=== PATIENT | male | born 1980 | race African-American/Black ===

== ENCOUNTER 2016-12-01 15:54 | Inpatient (IN) ==
[2016-12-01] MEDS ORDERED: 0.9 % Sodium Chloride 1,000 ML IVC ONE ×2 (16:08→17:33)
--- NOTE | 2016-12-01 16:21 | Emergency Department Note ---
Disposition Clinical Impression: Dehydration, Hyponatremia, Hypochloremia, Acute kidney injury Altered mental status Qualifiers: Altered mental status type: unspecified Qualified Code(s): R41.82 - Altered mental status, unspecified Disposition: Admitted As Inpatient Condition: Fair General Adult HPI - General Chief complaint: ED Altered Mental Status Stated complaint: F/D/AMS Time Seen by Provider: 12/01/16 16:03 Source: patient, family Limitations: no limitations - History of Present Illness Pain Scale: 7 - Related Data Home Medications Medication Instructions Recorded Confirmed Benztropine Mesylate [Benztropine 1 mg BID 12/01/16 12/02/16 Mesylate] ClonazePAM [Klonopin] 1 mg PO TID 12/01/16 12/02/16 Divalproex (12 HR) [Depakote (12 500 mg PO BID 12/01/16 12/02/16 HR)] Divalproex (24 HR) [Depakote ER 1,000 mg PO HS 12/01/16 12/02/16 (24 HR)] Haloperidol 10 mg PO QAM 12/01/16 12/02/16 Haloperidol 20 mg PO HS 12/01/16 12/02/16 [place] Carbon[place] 600 mg PO BID 12/01/16 12/02/16 Mesalamine [Pentasa] 1,000 mg PO QID 12/01/16 12/02/16 OLANZapine [Zyprexa] 20 mg PO HS 12/01/16 12/02/16 Allergies Allergy/AdvReac Type Severity Reaction Status Date / Time milk Allergy Diarrhea Verified 12/01/16 16:01 Past Medical History - Past Medical History Medical history: Reports: GERD Psychiatric history: Reports: schizophrenia - Social History Smoking Status: Current every day smoker Smokeless Tobacco Status: No Alcohol use: Reports: none Drug use: Reports: none Physical Exam - General Limitations: no limitations General appearance: alert Course Vital Signs Temperature 99 F 12/01/16 15:56 Pulse Rate 102 12/01/16 15:56 Respiratory Rate 20 12/01/16 15:56 Blood Pressure 105/72 12/01/16 15:56 O2 Sat by Pulse Oximetry 95 12/01/16 15:56 Temperature 99.1 F 12/03/16 06:58 Pulse Rate 85 12/03/16 06:58 Respiratory Rate 18 03/07/17 06:58 Blood Pressure 99/58 12/03/16 06:58 O2 Sat by Pulse Oximetry 95 12/03/16 06:58 Oxygen Delivery Oxygen Delivery Room Air Medical Decision Making - Lab Data Result diagrams: 12/03/16 08:25 12/03/16 08:25 Lab Results 12/01/16 12/01/16 12/01/16 Range/Units 16:23 16:23 16:23 WBC 5.4 (4.3-11.1) K/mcL RBC 5.27 (4.19-5.50) M/mcL Hgb 14.2 D (12.9-16.9) g/dL Hct 42.8 (37.5-50.1) % MCV 81.2 L (83.0-100.0) fL MCH 26.9 L (28.0-33.3) pg MCHC 33.2 (31.6-35.5) g/dL RDW 14.6 H (11.5-14.5) % Plt Count 108 L (140-400) K/mcL MPV 12.5 H (9.4-12.4) fL Immature Gran % INSTRUMENT TECHNICIAN Seg Neutrophils % 16.0 % Band Neutrophils % 50.0 H (0-4) % Lymphocytes % 11.0 % Monocytes % 23.0 % Eosinophils % INSTRUMENT TECHNICIAN Basophils % INSTRUMENT TECHNICIAN Neutrophils # 3.6 (1.6-8.9) K/mcL Lymphocytes # 0.6 (0.6-4.6) K/mcL Monocytes # 1.2 (0.0-1.3) K/mcL Eosinophils # INSTRUMENT TECHNICIAN Basophils # INSTRUMENT TECHNICIAN Toxic Granulation Present A (Not Present) Toxic Vacuolation Present A (Not Present) Platelet Estimate Slight Decrease L (Normal) Large Platelets Present A (Not Present) Poikilocytosis 1+ A (Not Present) Anisocytosis 1+ A (Not Present) Smear Path Review See Below Sodium 124 L (136-145) mEq/L Potassium 3.5 (3.5-4.5) mEq/L Chloride 87 L (98-109) mEq/L Carbon Dioxide 22 (19-29) mEq/L BUN 49 H (8-26) mg/dL Creatinine 2.63 H (0.72-1.25) mg/dL Est GFR ( Amer) 33 L (> 60) Est GFR (Non-Af Amer) 28 L (> 60) BUN/Creatinine Ratio 19 (6-26) Glucose 123 H (70-99) mg/dL Calculated Osmolality 272 L (280-300) Lactic Acid 1.3 (0.5-2.2) mmol/L Calcium 9.2 (8.6-10.8) mg/dL Magnesium 2.5 (1.6-2.6) mg/dL Total Bilirubin 0.5 (0.2-1.2) mg/dL AST 25 (5-34) Units/L ALT 23 (0-55) Units/L Alkaline Phosphatase 77 (38-126) Units/L Serum Total Protein 6.9 (6.0-8.3) g/dL Albumin 3.2 L (3.5-5.0) g/dL Globulin 3.7 H (2.4-3.5) g/dL Albumin/Globulin Ratio 0.9 L (1.1-2.2) Urine Color (Yellow) Urine Clarity (Clear) Urine pH (5.0-8.0) pH Units Ur Specific [place] (1.010-1.025) Urine Protein (Neg-Trace) mg/dL Urine Glucose (UA) (Normal) mg/dL Urine Ketones (Negative) mg/dL Urine Blood (Negative) Urine Nitrite (Negative) Urine Bilirubin (Negative) Urine Urobilinogen (Normal) mg/dL Ur Leukocyte Esterase (Negative) Urine Microscopic RBC (0-3) per hpf Urine Microscopic WBC (0-3) per hpf Ur Squamous Epith Cells (None-Few) per lpf Amorphous Sediment (Few) Urine Bacteria (None-Few) per hpf Hyaline Casts (None-Few) per lpf Valproic Acid (50-100) mcg/mL [place] (0.6-1.2) mEq/L 12/01/16 12/01/16 12/01/16 Range/Units 16:23 16:23 17:32 WBC (4.3-11.1) K/mcL RBC (4.19-5.50) M/mcL Hgb (12.9-16.9) g/dL Hct (37.5-50.1) % MCV (83.0-100.0) fL MCH (28.0-33.3) pg MCHC (31.6-35.5) g/dL RDW (11.5-14.5) % Plt Count (140-400) K/mcL MPV (9.4-12.4) fL Immature Gran % Seg Neutrophils % % Band Neutrophils % (0-4) % Lymphocytes % % Monocytes % % Eosinophils % Basophils % Neutrophils # (1.6-8.9) K/mcL Lymphocytes # (0.6-4.6) K/mcL Monocytes # (0.0-1.3) K/mcL Eosinophils # Basophils # Toxic Granulation (Not Present) Toxic Vacuolation (Not Present) Platelet Estimate (Normal) Large Platelets (Not Present) Poikilocytosis (Not Present) Anisocytosis (Not Present) Smear Path Review Sodium (136-145) mEq/L Potassium (3.5-4.5) mEq/L Chloride (98-109) mEq/L Carbon Dioxide (19-29) mEq/L BUN (8-26) mg/dL Creatinine (0.72-1.25) mg/dL Est GFR ( Amer) (> 60) Est GFR (Non-Af Amer) (> 60) BUN/Creatinine Ratio (6-26) Glucose (70-99) mg/dL Calculated Osmolality (280-300) Lactic Acid (0.5-2.2) mmol/L Calcium (8.6-10.8) mg/dL Magnesium (1.6-2.6) mg/dL Total Bilirubin (0.2-1.2) mg/dL AST (5-34) Units/L ALT (0-55) Units/L Alkaline Phosphatase (38-126) Units/L Serum Total Protein (6.0-8.3) g/dL Albumin (3.5-5.0) g/dL Globulin (2.4-3.5) g/dL Albumin/Globulin Ratio (1.1-2.2) Urine Color Dark Yellow (Yellow) Urine Clarity Cloudy A (Clear) Urine pH 5.0 (5.0-8.0) pH Units Ur Specific [place] 1.022 (1.010-1.025) Urine Protein 30 H (Neg-Trace) mg/dL Urine Glucose (UA) Normal (Normal) mg/dL Urine Ketones Trace H (Negative) mg/dL Urine Blood Trace H (Negative) Urine Nitrite Negative (Negative) Urine Bilirubin Negative (Negative) Urine Urobilinogen Normal (Normal) mg/dL Ur Leukocyte Esterase Negative (Negative) Urine Microscopic RBC 5-15 H (0-3) per hpf Urine Microscopic WBC 0-3 (0-3) per hpf Ur Squamous Epith Cells Many H (None-Few) per lpf Amorphous Sediment Moderate H (Few) Urine Bacteria Few (None-Few) per hpf Hyaline Casts None Seen (None-Few) per lpf Valproic Acid 115.78 H (50-100) mcg/mL [place] 1.7 H* (0.6-1.2) mEq/L Attestation Statement - Attestation Attestation: I examined this patient and my medical decision-making was reviewed with the TENNIS CAMP INSTRUCTOR/PA/Advanced Practice Nurse/Resident Physician. I agree with the documented findings, disposition and treatment plan as described except to the extent set forth below. [id number] time provided Patient presents to the emergency department and the care of his facility employee and his mother. They report generalized weakness, diarrhea, confusion. The patient appears ashen, cachectic, and older than stated age. He is a limited historian. Home medication list reviewed by me. Plan of care and management discussed by me with the resident physician
--- NOTE | 2016-12-01 16:28 | Emergency Department Note ---
Disposition Clinical Impression: Dehydration, Hyponatremia, Hypochloremia, Acute kidney injury Altered mental status Qualifiers: Altered mental status type: unspecified Qualified Code(s): R41.82 - Altered mental status, unspecified Disposition: Admitted As Inpatient Condition: Fair General Adult HPI - General Chief complaint: ED Altered Mental Status Stated complaint: F/D/AMS Time Seen by Provider: 12/01/16 16:03 Source: patient, family Limitations: no limitations Nursing Notes Reviewed: Yes Vital Signs Reviewed: Yes - History of Present Illness HPI Narrative: Mr. Dash, 36-year-old male, presents from an inpatient mental health facility via EMS with mother and caregiver bedside. Chief complaint is fever, decreased appetite, loose bowels, altered mentation, ashen appearance. This began 5 days ago with fever of 104F. He was seen at this emergency department 5 days ago and diagnosed with viral URI symptoms. His diarrhea began shortly thereafter with associated decreased PO intake. His confusion began this morning as did his ashen appearance. Caregiver states that patient had been given Tamiflu by nurses at this facility with the rationale of, "fever." Patient was Flu (-) on his previous visit. PMH: Schizophrenia Medications: Benztropine, clonazepam, divalproex, haloperidol Pain Scale: 7 - Related Data Allergies Allergy/AdvReac Type Severity Reaction Status Date / Time milk Allergy Diarrhea Verified 12/01/16 16:01 Past Medical History - Past Medical History Medical history: Reports: GERD Psychiatric history: Reports: schizophrenia - Social History Smoking Status: Current every day smoker Smokeless Tobacco Status: No Alcohol use: Reports: none Drug use: Reports: none Physical Exam General: Patient is alert, oriented to self, location, not to situation or birthdate, and in no acute distress. He appears ashen and tired. HEENT: No facial asymmetry. Head is normocephalic and atraumatic. Trachea midline. Oral mucosa dry. Cardiovascular: Heart regular rate and rhythm without clicks, rubs, gallops, or murmurs. No JVD. PMI nondisplaced. Respiratory: Symmetric chest rise with good respiratory effort. Bilateral breath sounds are clear without wheezing, crackles, or rhonchi. Abdomen: Bowel sounds present normoactive x-4 quadrants. Abdomen is soft, nondistended, and nontender. No organomegaly noted. Psych: Patient's affect is appropriate for situation. - General Limitations: no limitations General appearance: alert Course Vital Signs Temperature 99 F 12/01/16 15:56 Pulse Rate 102 12/01/16 15:56 Respiratory Rate 20 12/01/16 15:56 Blood Pressure 105/72 12/01/16 15:56 O2 Sat by Pulse Oximetry 95 12/01/16 15:56 Temperature 99 F 12/01/16 15:56 Pulse Rate 81 12/01/16 17:15 Respiratory Rate 20 12/01/16 17:15 Blood Pressure 99/66 12/01/16 17:15 O2 Sat by Pulse Oximetry 98 12/01/16 17:15 Oxygen Delivery Oxygen Delivery Room Air Medical Decision Making - Lab Data Result diagrams: 12/01/16 16:23 12/01/16 16:23 Lab Results 12/01/16 12/01/16 12/01/16 Range/Units 16:23 16:23 16:23 WBC 5.4 (4.3-11.1) K/mcL RBC 5.27 (4.19-5.50) M/mcL Hgb 14.2 D (12.9-16.9) g/dL Hct 42.8 (37.5-50.1) % MCV 81.2 L (83.0-100.0) fL MCH 26.9 L (28.0-33.3) pg MCHC 33.2 (31.6-35.5) g/dL RDW 14.6 H (11.5-14.5) % Plt Count 108 L (140-400) K/mcL MPV 12.5 H (9.4-12.4) fL Immature Gran % ELECTRICAL MAINTENANCE TECHNICIAN Seg Neutrophils % 16.0 % Band Neutrophils % 50.0 H (0-4) % Lymphocytes % 11.0 % Monocytes % 23.0 % Eosinophils % ELECTRICAL MAINTENANCE TECHNICIAN Basophils % ELECTRICAL MAINTENANCE TECHNICIAN Neutrophils # 3.6 (1.6-8.9) K/mcL Lymphocytes # 0.6 (0.6-4.6) K/mcL Monocytes # 1.2 (0.0-1.3) K/mcL Eosinophils # ELECTRICAL MAINTENANCE TECHNICIAN Basophils # ELECTRICAL MAINTENANCE TECHNICIAN Toxic Granulation Present A (Not Present) Toxic Vacuolation Present A (Not Present) Platelet Estimate Slight Decrease L (Normal) Large Platelets Present A (Not Present) Poikilocytosis 1+ A (Not Present) Anisocytosis 1+ A (Not Present) Sodium 124 L (136-145) mEq/L Potassium 3.5 (3.5-4.5) mEq/L Chloride 87 L (98-109) mEq/L Carbon Dioxide 22 (19-29) mEq/L BUN 49 H (8-26) mg/dL Creatinine 2.63 H (0.72-1.25) mg/dL Est GFR ( Amer) 33 L (> 60) Est GFR (Non-Af Amer) 28 L (> 60) BUN/Creatinine Ratio 19 (6-26) Glucose 123 H (70-99) mg/dL Calculated Osmolality 272 L (280-300) Lactic Acid 1.3 (0.5-2.2) mmol/L Calcium 9.2 (8.6-10.8) mg/dL Magnesium 2.5 (1.6-2.6) mg/dL Total Bilirubin 0.5 (0.2-1.2) mg/dL AST 25 (5-34) Units/L ALT 23 (0-55) Units/L Alkaline Phosphatase 77 (38-126) Units/L Serum Total Protein 6.9 (6.0-8.3) g/dL Albumin 3.2 L (3.5-5.0) g/dL Globulin 3.7 H (2.4-3.5) g/dL Albumin/Globulin Ratio 0.9 L (1.1-2.2) Urine Color (Yellow) Urine Clarity (Clear) Urine pH (5.0-8.0) pH Units Ur Specific [place] (1.010-1.025) Urine Protein (Neg-Trace) mg/dL Urine Glucose (UA) (Normal) mg/dL Urine Ketones (Negative) mg/dL Urine Blood (Negative) Urine Nitrite (Negative) Urine Bilirubin (Negative) Urine Urobilinogen (Normal) mg/dL Ur Leukocyte Esterase (Negative) Urine Microscopic RBC (0-3) per hpf Urine Microscopic WBC (0-3) per hpf Ur Squamous Epith Cells (None-Few) per lpf Amorphous Sediment (Few) Urine Bacteria (None-Few) per hpf Hyaline Casts (None-Few) per lpf Valproic Acid (50-100) mcg/mL [place] (0.6-1.2) mEq/L 12/01/16 12/01/16 12/01/16 Range/Units 16:23 16:23 17:32 WBC (4.3-11.1) K/mcL RBC (4.19-5.50) M/mcL Hgb (12.9-16.9) g/dL Hct (37.5-50.1) % MCV (83.0-100.0) fL MCH (28.0-33.3) pg MCHC (31.6-35.5) g/dL RDW (11.5-14.5) % Plt Count (140-400) K/mcL MPV (9.4-12.4) fL Immature Gran % Seg Neutrophils % % Band Neutrophils % (0-4) % Lymphocytes % % Monocytes % % Eosinophils % Basophils % Neutrophils # (1.6-8.9) K/mcL Lymphocytes # (0.6-4.6) K/mcL Monocytes # (0.0-1.3) K/mcL Eosinophils # Basophils # Toxic Granulation (Not Present) Toxic Vacuolation (Not Present) Platelet Estimate (Normal) Large Platelets (Not Present) Poikilocytosis (Not Present) Anisocytosis (Not Present) Sodium (136-145) mEq/L Potassium (3.5-4.5) mEq/L Chloride (98-109) mEq/L Carbon Dioxide (19-29) mEq/L BUN (8-26) mg/dL Creatinine (0.72-1.25) mg/dL Est GFR ( Amer) (> 60) Est GFR (Non-Af Amer) (> 60) BUN/Creatinine Ratio (6-26) Glucose (70-99) mg/dL Calculated Osmolality (280-300) Lactic Acid (0.5-2.2) mmol/L Calcium (8.6-10.8) mg/dL Magnesium (1.6-2.6) mg/dL Total Bilirubin (0.2-1.2) mg/dL AST (5-34) Units/L ALT (0-55) Units/L Alkaline Phosphatase (38-126) Units/L Serum Total Protein (6.0-8.3) g/dL Albumin (3.5-5.0) g/dL Globulin (2.4-3.5) g/dL Albumin/Globulin Ratio (1.1-2.2) Urine Color Dark Yellow (Yellow) Urine Clarity Cloudy A (Clear) Urine pH 5.0 (5.0-8.0) pH Units Ur Specific [place] 1.022 (1.010-1.025) Urine Protein 30 H (Neg-Trace) mg/dL Urine Glucose (UA) Normal (Normal) mg/dL Urine Ketones Trace H (Negative) mg/dL Urine Blood Trace H (Negative) Urine Nitrite Negative (Negative) Urine Bilirubin Negative (Negative) Urine Urobilinogen Normal (Normal) mg/dL Ur Leukocyte Esterase Negative (Negative) Urine Microscopic RBC 5-15 H (0-3) per hpf Urine Microscopic WBC 0-3 (0-3) per hpf Ur Squamous Epith Cells Many H (None-Few) per lpf Amorphous Sediment Moderate H (Few) Urine Bacteria Few (None-Few) per hpf Hyaline Casts None Seen (None-Few) per lpf Valproic Acid 115.78 H (50-100) mcg/mL [place] 1.7 H* (0.6-1.2) mEq/L
[2016-12-01 16:33] LABS: Hematocrit 42.8 % (37.5-50.1); Hemoglobin 14.2 g/dL (12.9-16.9); Mean Corpuscular HGB Conc 33.2 g/dL (31.6-35.5); Mean Corpuscular Hemoglobin 26.9 pg (28.0-33.3); Mean Platelet Volume 12.5 fL (9.4-12.4); Platelet Count 108 K/mcL (140-400); Red Blood Count 5.27 M/mcL (4.19-5.50); Red Cell Distribution Width 14.6 % (11.5-14.5)
[2016-12-01 16:34] LABS: Mean Corpuscular Volume 81.2 fL (83.0-100.0)
[2016-12-01 16:48] LABS: Albumin 3.2 g/dL (3.5-5.0); Albumin/Globulin Ratio 0.9 (1.1-2.2); Bilirubin,Total 0.5 mg/dL (0.2-1.2); Calcium 9.2 mg/dL (8.6-10.8); Globulin 3.7 g/dL (2.4-3.5); Magnesium 2.5 mg/dL (1.6-2.6); Potassium 3.5 mEq/L (3.5-4.5); Total Protein 6.9 g/dL (6.0-8.3)
[2016-12-01 17:17] LABS: Neutrophils # 3.6 K/mcL (1.6-8.9)
[2016-12-01 17:18] LABS: Lymphocytes # 0.6 K/mcL (0.6-4.6)
[2016-12-01 17:19] LABS: Monocytes # 1.2 K/mcL (0.0-1.3)
[2016-12-01 17:20] LABS: Large Platelets Present (Not Present); Platelet Estimate Slight Decrease (Normal); Toxic Granulation Present (Not Present); Toxic Vacuolation Present (Not Present)
[2016-12-01 17:23] LABS: Anisocytosis 1+ (Not Present); Poikilocytosis 1+ (Not Present)
[2016-12-01 17:40] LABS: Bilirubin,Urine Negative (Negative); Blood,Urine Trace (Negative); Clarity,Urine Cloudy (Clear); Color,Urine Dark Yellow (Yellow); Glucose,Urine (UA) Normal (Normal); Ketones,Urine Trace mg/dL (Negative); Leukocyte Esterase,Urine Negative (Negative); Nitrite,Urine Negative (Negative); Protein,Urine 30 mg/dL (Neg-Trace); Specific Gravity,Urine 1.022 (1.010-1.025); Urobilinogen,Urine Normal (Normal)
[2016-12-01 17:42] LABS: Squamous Epithelial Cell,Urine Many per lpf (None-Few); WBC,Urine 0-3 per hpf (0-3)
[2016-12-01 17:52] LABS: Amorphous Sediment,Urine Moderate (Few); Hyaline Casts,Urine None Seen per lpf (None-Few)
[2016-12-01 17:53] LABS: Bacteria,Urine Few per hpf (None-Few)
[2016-12-01] MEDS ORDERED: Ondansetron 4 MG/2 ML VIAL IVP PRN (18:13)
[2016-12-01] MEDS ORDERED: Naloxone 0.4 MG/ML INJ IVP PRN (18:13)
--- NOTE | 2016-12-01 18:23 | Internal Med History&Physical ---
Date of Encounter: 12/01/16 Time of Encounter: 17:45 Internal Medicine - H&P: HPI Chief complaint: sore throat, nausea, vomiting, weakness, inability to walk x 5- 7 days Admitted From: Emergency Dept Plans for Post Hospital Care: Home History of present illness: Mr. Dash is a 36 year old male resident of a [facility], with medical history significant for short bowel syndrome, PUDx, milk intolerance with chronic intermittent diarrhea, schizoaffective disorder on Depakote, [place], Zyprexa, was brought in by EMS (mother and caregiver bedside) with 5 days of intermittent fever (T max 104), protracted nausea, vomiting and diarrhea. He reports a preceding sore throat without cough. Mother and caregiver also report somnolence and confusion since this morning. The re is also complaint of decreased oral intake. He is currently being treated for a viral URI with Ostelmivir (even though he was rapid influenza test negative at his last ED visit 5 days ago). The patient denies abdominal pain. No rash, no sick contacts , no recent travel. His mother reports that the patient has been unable to walk , and has had a wobbling gait lately. He has been in and out of hospital usually for gastrointestinal complaints related to PUDx and short bowel syndrome. He denies other complaints on ROS. Significantly, no headaches, neck stiffness, rash and glandular enlargement. No rhinorrhea, no hemptysis, hematemesis, melena, hematochezia. Caregiver thinks he has lost weight. He is FULL CODE per discussion. He nominates his mother, Yumiko Lindsey ) as his NOK/POA. ROS: A 10 point ROS was performed. see HPI. Positives and relevant negatives are detailed, system-symptom not mention assumed negative unless otherwise stated. Family history: no significant family history. Vital Signs Temperature 99 F 12/01/16 15:56 Pulse Rate 102 12/01/16 15:56 Respiratory Rate 20 12/01/16 15:56 Blood Pressure 105/72 12/01/16 15:56 O2 Sat by Pulse Oximetry 95 12/01/16 15:56 Temperature 99 F 12/01/16 15:56 Pulse Rate 81 12/01/16 17:15 Respiratory Rate 20 12/01/16 17:15 Blood Pressure 99/66 12/01/16 17:15 O2 Sat by Pulse Oximetry 98 12/01/16 17:15 Not in distress, he is ill or toxic looking. lethargic. suncken eyes, Not pale, anicteric, afebrile, acyanotic. Moist mucosa, no JVD HEENT: No JVD, no cervical lymphadenopathy, Chest : CTAB Heart: RRR, HS1/2, no m/r/g. Abdomen: soft, non-tender, no guarding, no rebound, no masses, BS+ : No flank tenderness, no CVA tenderness, no suprapubic tenderness. NATURAL RESOURCE MANAGER: AAO x 3, no focal neurological deficits. He intermittent drifts off to sleep. Skin: no active skin lesion, loss of skin tugor. Extremities: No pedal edema, normal pedal pulses, no calf tenderness. Lab Results 12/01/16 12/01/16 12/01/16 Range/Units 16:23 16:23 16:23 WBC 5.4 (4.3-11.1) K/mcL RBC 5.27 (4.19-5.50) M/mcL Hgb 14.2 D (12.9-16.9) g/dL Hct 42.8 (37.5-50.1) % MCV 81.2 L (83.0-100.0) fL MCH 26.9 L (28.0-33.3) pg MCHC 33.2 (31.6-35.5) g/dL RDW 14.6 H (11.5-14.5) % Plt Count 108 L (140-400) K/mcL MPV 12.5 H (9.4-12.4) fL Immature Gran % COFFEE TASTER Seg Neutrophils % 16.0 % Band Neutrophils % 50.0 H (0-4) % Lymphocytes % 11.0 % Monocytes % 23.0 % Eosinophils % COFFEE TASTER Basophils % COFFEE TASTER Neutrophils # 3.6 (1.6-8.9) K/mcL Lymphocytes # 0.6 (0.6-4.6) K/mcL Monocytes # 1.2 (0.0-1.3) K/mcL Eosinophils # COFFEE TASTER Basophils # COFFEE TASTER Toxic Granulation Present A (Not Present) Toxic Vacuolation Present A (Not Present) Platelet Estimate Slight Decrease L (Normal) Large Platelets Present A (Not Present) Poikilocytosis 1+ A (Not Present) Anisocytosis 1+ A (Not Present) Sodium 124 L (136-145) mEq/L Potassium 3.5 (3.5-4.5) mEq/L Chloride 87 L (98-109) mEq/L Carbon Dioxide 22 (19-29) mEq/L BUN 49 H (8-26) mg/dL Creatinine 2.63 H (0.72-1.25) mg/dL Est GFR ( Amer) 33 L (> 60) Est GFR (Non-Af Amer) 28 L (> 60) BUN/Creatinine Ratio 19 (6-26) Glucose 123 H (70-99) mg/dL Calculated Osmolality 272 L (280-300) Lactic Acid 1.3 (0.5-2.2) mmol/L Calcium 9.2 (8.6-10.8) mg/dL Magnesium 2.5 (1.6-2.6) mg/dL Total Bilirubin 0.5 (0.2-1.2) mg/dL AST 25 (5-34) Units/L ALT 23 (0-55) Units/L Alkaline Phosphatase 77 (38-126) Units/L Serum Total Protein 6.9 (6.0-8.3) g/dL Albumin 3.2 L (3.5-5.0) g/dL Globulin 3.7 H (2.4-3.5) g/dL Albumin/Globulin Ratio 0.9 L (1.1-2.2) Urine Color (Yellow) Urine Clarity (Clear) Urine pH (5.0-8.0) pH Units Ur Specific [place] (1.010-1.025) Urine Protein (Neg-Trace) mg/dL Urine Glucose (UA) (Normal) mg/dL Urine Ketones (Negative) mg/dL Urine Blood (Negative) Urine Nitrite (Negative) Urine Bilirubin (Negative) Urine Urobilinogen (Normal) mg/dL Ur Leukocyte Esterase (Negative) Urine Microscopic RBC (0-3) per hpf Urine Microscopic WBC (0-3) per hpf Ur Squamous Epith Cells (None-Few) per lpf Amorphous Sediment (Few) Urine Bacteria (None-Few) per hpf Hyaline Casts (None-Few) per lpf Valproic Acid (50-100) mcg/mL [place] (0.6-1.2) mEq/L 12/01/16 12/01/16 12/01/16 Range/Units 16:23 16:23 17:32 WBC (4.3-11.1) K/mcL RBC (4.19-5.50) M/mcL Hgb (12.9-16.9) g/dL Hct (37.5-50.1) % MCV (83.0-100.0) fL MCH (28.0-33.3) pg MCHC (31.6-35.5) g/dL RDW (11.5-14.5) % Plt Count (140-400) K/mcL MPV (9.4-12.4) fL Immature Gran % Seg Neutrophils % % Band Neutrophils % (0-4) % Lymphocytes % % Monocytes % % Eosinophils % Basophils % Neutrophils # (1.6-8.9) K/mcL Lymphocytes # (0.6-4.6) K/mcL Monocytes # (0.0-1.3) K/mcL Eosinophils # Basophils # Toxic Granulation (Not Present) Toxic Vacuolation (Not Present) Platelet Estimate (Normal) Large Platelets (Not Present) Poikilocytosis (Not Present) Anisocytosis (Not Present) Sodium (136-145) mEq/L Potassium (3.5-4.5) mEq/L Chloride (98-109) mEq/L Carbon Dioxide (19-29) mEq/L BUN (8-26) mg/dL Creatinine (0.72-1.25) mg/dL Est GFR ( Amer) (> 60) Est GFR (Non-Af Amer) (> 60) BUN/Creatinine Ratio (6-26) Glucose (70-99) mg/dL Calculated Osmolality (280-300) Lactic Acid (0.5-2.2) mmol/L Calcium (8.6-10.8) mg/dL Magnesium (1.6-2.6) mg/dL Total Bilirubin (0.2-1.2) mg/dL AST (5-34) Units/L ALT (0-55) Units/L Alkaline Phosphatase (38-126) Units/L Serum Total Protein (6.0-8.3) g/dL Albumin (3.5-5.0) g/dL Globulin (2.4-3.5) g/dL Albumin/Globulin Ratio (1.1-2.2) Urine Color Dark Yellow (Yellow) Urine Clarity Cloudy A (Clear) Urine pH 5.0 (5.0-8.0) pH Units Ur Specific [place] 1.022 (1.010-1.025) Urine Protein 30 H (Neg-Trace) mg/dL Urine Glucose (UA) Normal (Normal) mg/dL Urine Ketones Trace H (Negative) mg/dL Urine Blood Trace H (Negative) Urine Nitrite Negative (Negative) Urine Bilirubin Negative (Negative) Urine Urobilinogen Normal (Normal) mg/dL Ur Leukocyte Esterase Negative (Negative) Urine Microscopic RBC 5-15 H (0-3) per hpf Urine Microscopic WBC 0-3 (0-3) per hpf Ur Squamous Epith Cells Many H (None-Few) per lpf Amorphous Sediment Moderate H (Few) Urine Bacteria Few (None-Few) per hpf Hyaline Casts None Seen (None-Few) per lpf Valproic Acid 115.78 H (50-100) mcg/mL [place] 1.7 H* (0.6-1.2) mEq/L CT abdomen: psot-surgical changes with partial right colectomy andpartial sigmoid colectomy, mural thickening involving the terminal ileum, right and transverse colon suggestive of enterocolitis. IMP Infective enterocolitis with bandemia, normal white count in a patient who was previously leucopenic may indicate new infection. Probable streptococcal pharyngitis Acute renal failure related to gastrointestinal loss, poor oral intake, as well as lithium toxicity Severe dehydration. [place] and depakote toxicity related to dehydration Hyponatremia/hypochloremia related to GI losses and [place] Acute encephalopathy, multifactorial, see above Megakaryocytosis related to Depakote and/or Folate deficiency. Elevated BUN likely related to ARF, and/or chronic use of Depakote. Chronic morbidities Schizoaffective disorder Short bowel syndrome History of peptic ulcer disease. PLAN Admit IVF hydration Clear liquid diet IV protonix 40 mg QD tREND RENAL FUNCTION, LITHIUM and depakote level, obtain magnesium, uric acid and phosphorus levels. IV Ceftriaxone 1g QD IV Metroniodazole 500mg Q8H. Continue only essential medications of chronic morbidities, renally dose as applicable (after medication reconcillation which has not been completed yet) Hold [place] and depakote. Stool studies TSH, folate and B12 levels Folate 1g QD from tomorrow given large platelets. Renal sonogram. Heparin for DVT prophylaxis Protonix for GI prophylaxis I discussed my assessment with the patient, his mother and caregiver are at bedisde. They all verbalized understanding and are agreeable to admission. He is high risk given severe dehydration ARF with lithium and depakote toxicity and continuing nause, vomiting, diarrhea and poor oral intake. Bandemia is also very concerning. Past Med Surg Social Fam HX - Past Medical History Medical history: GERD Psychiatric history: schizophrenia - Social History Smoking Status: Current every day smoker Smokeless Tobacco Status: No Alcohol use: none Drug use: none Internal Medicine - H&P: Meds Allergies milk Allergy (Verified 12/01/16 16:01) Diarrhea All Systems PM: A 10-system review of systems was performed and is negative for pertinent findings except as documented above in the HPI. - Constitutional Vitals: Temp Pulse Resp BP Pulse Ox 99 F 81 20 99/66 98 12/01/16 15:56 12/01/16 17:15 12/01/16 17:15 12/01/16 17:15 12/01/16 17:15 Internal Med - H&P Results - Labs CBC & Chem 7: 12/01/16 16:23 12/01/16 16:23
[2016-12-01 20:34] LABS: Magnesium 2.1 mg/dL (1.6-2.6); Phosphorous 3.9 mg/dL (2.3-4.7); Potassium 3.4 mEq/L (3.5-4.5); Uric Acid 9.7 mg/dL (3.5-7.2)
[2016-12-01 20:36] LABS: Calcium 7.6 mg/dL (8.6-10.8)
[2016-12-01 20:54] LABS: Thyroid Stimulating Hormone 2.046 mcIU/mL (0.350-4.840)
[2016-12-01 21:03] LABS: Folate 16.3 ng/mL (7.0-31.4)
[2016-12-01] MEDS: Acetaminophen 325 MG TABLET PO PRN (21:32)
[2016-12-01] MEDS: 0.9 % Sodium Chloride w KCl 20 MEQ/1,000 ML MLS IVC SCH (21:32)
[2016-12-02] MEDS: *HR* Heparin 5,000 UNIT/ML VIAL SQ SCH ×2 (06:04→17:34)
[2016-12-02] MEDS: 0.9 % Sodium Chloride w KCl 20 MEQ/1,000 ML MLS IVC SCH ×5 (06:04→23:00)
[2016-12-02] MEDS: Acetaminophen 325 MG TABLET PO PRN ×3 (06:04→20:32)
[2016-12-02 07:14] LABS: C.difficile Toxin A/B by PCR Not detected (Not detect); Campylobacter by PCR Not detected (Not detect); Plesiomonas shigelloides PCR Not detected (Not detect)
[2016-12-02 07:18] LABS: Salmonella PCR ***DETECTED*** (Not detect)
[2016-12-02 07:19] LABS: Adenovirus F 40/41 PCR Not detected (Not detect); Astrovirus PCR Not detected (Not detect); Cryptosporidium by PCR Not detected (Not detect); Cyclospora cayetanensis PCR Not detected (Not detect); E. coli O157 by PCR Not detected (Not detect); Entamoeba histolytica PCR Not detected (Not detect); Enteroaggregative E.coli(EAEC) Not detected (Not detect); Enteropathogenic E.coli(EPEC) Not detected (Not detect); Enterotoxigenic E.coli (ETEC) Not detected (Not detect); Giardia lamblia PCR Not detected (Not detect); Norovirus GI/GII PCR Not detected (Not detect); Rotavirus A PCR Not detected (Not detect); Sapovirus PCR Not detected (Not detect); Shig/EnteroinvasiveE coli EIEC Not detected (Not detect); Shigalike tox-prod E coli STEC Not detected (Not detect); Vibrio PCR Not detected (Not detect); Vibrio cholerae PCR Not detected (Not detect); Yersinia enterocolitica PCR Not detected (Not detect)
--- NOTE | 2016-12-02 07:54 | Internal Med Progress Note ---
Date of Encounter: 12/02/16 Time of Encounter: 07:50 - Assessment and plan (1) Enterocolitis Current Visit: Yes Status: Acute Assessment and plan: Acute metabolic encephalopathy secondary to sepsis due to acute salmonella enterocolitis Stop Rocephin and metronidazole start ciprofloxacin Continue IV fluids zofran as needed CT scan of the abdomen showed enterocolitis assisted will be alerted of contamination to look for source Isolation High-risk due to sepsis (2) Hypokalemia Current Visit: Yes Status: Acute Assessment and plan: replete as needed (3) Mood disorder Current Visit: Yes Status: Acute Assessment and plan: Hold valproic acid and lithium due to toxicity related to dehydration and acute renal failure Monitor broke acid and lithium to be restarted at a later time (4) Tobacco abuse Current Visit: Yes Status: Acute Assessment and plan: Smoking cessation counseling given for 5 minutes Nicotine patch ordered (5) Acute kidney injury Current Visit: Yes Status: Acute Assessment and plan: Secondary to dehydration, improving Continue IV fluids (6) Dehydration Current Visit: Yes Status: Acute (7) Hyponatremia Current Visit: Yes Status: Acute Assessment and plan: Monitor sodium levels - Time Spent With Patient Greater than 35 minutes - Subjective Interval history: Still confused, very dehydrated, mentions that she is not having any diarrhea at the moment no blood in stool, having cramps at times, had a fever 101 last night. Denies any chest shortness of breath - Constitutional Vitals: Temp Pulse Resp BP Pulse Ox 101.0 F H 89 17 98/66 95 12/02/16 04:57 12/02/16 04:57 12/02/16 04:57 12/02/16 04:57 12/02/16 04:57 General appearance: Present: A&O X 2 - Head Head exam: Present: atraumatic, normocephalic Additional comments: black villious tongue - Eye Eye exam: Present: PERRL, conjuntiva pink, sclera anicteric Pupils: Present: PERRL - Neck Neck exam general surgery: Present: supple, trachea midline. Absent: lymphadenopathy - Respiratory Respiratory exam: Present: decreased breath sounds, CTAB. Absent: accessory muscle use, rales, rhonchi, wheezes - Cardiovascular Cardiovascular exam: Present: RRR, +S1, +S2. Absent: diastolic murmur, gallop, rubs, systolic murmur - GI/Abdominal GI/Abdominal exam: Present: distended, hyperactive bowel sounds, soft, no peritoneal signs. Absent: normal bowel sounds, tenderness - Extremities Exam Extremities exam: Present: warm, radial pulses palpable and symetrical. Absent : calf tenderness, cyanotic, pedal edema - Neurological Exam Neurological exam: Present: CN II-XII intact, no focal deficits. Absent: oriented X3, pronater drift, facial droop, speech deficit Additional comments: Very dehydrated - Skin Skin exam: Present: dry, intact Internal Medicine: Result - Labs CBC & Chem 7: 12/01/16 16:23 12/01/16 19:57 Labs: BMP 12/01/16 19:57 Sodium 127 L Potassium 3.4 L Chloride 92 L Carbon Dioxide 24 BUN 42 H Creatinine 2.07 H Glucose 110 H Calcium 7.6 L D Consult Discharge Plan - Plan Referrals: Milka Ellis MD [Primary Care Provider] -
[2016-12-02] MEDS: MetroNIDAZOLE 500 MG/100 ML 500 MG/100 ML BAG IVPB SCH ×2 (08:15)
[2016-12-02 08:22] LABS: BUN/Creatinine Ratio 26 (6-26); Calcium 7.1 mg/dL (8.6-10.8); Carbon Dioxide 20 mEq/L (19-29); Chloride 96 mEq/L (98-109); Glucose 114 mg/dL (70-99); Osmolality,Calculated 269 (280-300); Potassium 3.3 mEq/L (3.5-4.5); Sodium 126 mEq/L (136-145); eGFR For African Americans > 60 (> 60); eGFR For Non-African Americans > 60 (> 60)
[2016-12-02 08:23] LABS: Blood Urea Nitrogen 31 mg/dL (8-26)
[2016-12-02] MEDS ORDERED: Pantoprazole 40 MG VIAL IVP SCH (09:00)
[2016-12-02] MEDS: Nicotine 21 MG PATCH.TD24 TD SCH (09:38)
[2016-12-02] MEDS ORDERED: *HR* LORazepam 1 MG TABLET PO ONE (11:37)
[2016-12-02] MEDS ORDERED: *HR* LORazepam 2 MG/ML VIAL IM PRN ×2 (12:20→20:45)
[2016-12-02] MEDS ORDERED: *HR* LORazepam 2 MG/ML VIAL ONE (12:21)
--- NOTE | 2016-12-02 16:58 | Electrocardiograph Report ---
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
[2016-12-02] MEDS ORDERED: *HR* LORazepam 2 MG/ML VIAL IVP PRN (20:32)
[2016-12-02] MEDS ORDERED: Haloperidol Lactate 5 MG/ML VIAL IVP PRN (20:32)
[2016-12-02] MEDS ORDERED: Divalproex (12 HR) 500 MG TABLET PO SCH (21:00)
[2016-12-02] MEDS: Divalproex (24 HR) 500 MG TABLET PO SCH (21:00)
[2016-12-02] MEDS: clonazePAM 1 MG TABLET PO SCH (21:02)
[2016-12-02] MEDS: OLANZapine 10 MG TAB.RAPDIS PO SCH (21:02)
[2016-12-03] MEDS ORDERED: *HR* LORazepam 2 MG/ML VIAL IM SCH
[2016-12-03] MEDS: 0.9 % Sodium Chloride w KCl 20 MEQ/1,000 ML MLS IVC SCH (05:38)
[2016-12-03] MEDS: *HR* Heparin 5,000 UNIT/ML VIAL SQ SCH ×2 (05:41→17:50)
[2016-12-03] MEDS: Divalproex (12 HR) 500 MG TABLET PO SCH ×2 (08:00→15:59)
[2016-12-03] MEDS: clonazePAM 1 MG TABLET PO SCH ×3 (08:48→21:08)
[2016-12-03 08:50] LABS: Mean Corpuscular Volume 82.9 fL (83.0-100.0); Mean Platelet Volume 13.4 fL (9.4-12.4); Red Cell Distribution Width 15.2 % (11.5-14.5)
[2016-12-03 08:51] LABS: Immature Platelets 18.8 % (1.1-6.1); Mean Corpuscular HGB Conc 32.4 g/dL (31.6-35.5); Mean Corpuscular Hemoglobin 26.8 pg (28.0-33.3); Platelet Count 83 K/mcL (140-400)
[2016-12-03] MEDS: Nicotine 21 MG PATCH.TD24 TD SCH (08:51)
[2016-12-03] MEDS ORDERED: Folic Acid 1 MG TABLET PO SCH (09:00)
[2016-12-03] MEDS ORDERED: Vitamin B Complex/Vit C/Vit E 1 EACH TABLET PO SCH (09:00)
[2016-12-03] MEDS ORDERED: Thiamine (B-1) 100 MG TABLET PO SCH (09:00)
[2016-12-03 09:36] LABS: Eosinophils # 0.1 K/mcL (0.0-0.6); Lymphocytes # 0.8 K/mcL (0.6-4.6); Monocytes # 0.3 K/mcL (0.0-1.3); Neutrophils # 3.3 K/mcL (1.6-8.9); Platelet Estimate Decreased (Normal)
--- NOTE | 2016-12-03 10:41 | Internal Med Progress Note ---
<Mariana Mcghee - Last Filed: 12/03/16 11:30> Date of Encounter: 12/03/16 Time of Encounter: 10:34 - Assessment and plan (1) Bacterial enterocolitis Current Visit: Yes Status: Resolved Assessment and plan: Acute metabolic encephalopathy due to salmonella enterocolitis PCR stool sample positive for Salmonella spp. I spoke to lab and found that species will be determined by outside lab and may take [address] abdomen demonstrated enterocolitis Continue Ciprofloxacin (day#2) Continue IVF Isolation precautions High risk due to sepsis (2) Acute metabolic encephalopathy Current Visit: Yes Status: Acute Assessment and plan: Patient's mentation is improving per family Likely mental status change is secondary to salmonella enterocolitis, dehydration, electrolyte disturbance, and lithium toxicity Continue IVF Monitor Valproic acid and Manuel Garcia levels (3) Acute kidney injury Current Visit: Yes Status: Acute Assessment and plan: Cr 1.21 yesterday and 0.82 today BEBE secondary to dehydration, improving Continue IV fluids (4) Dehydration Current Visit: Yes Status: Acute Assessment and plan: Patient's hydration status is improving. Cr is improved at 0.82 today. Advance diet today Continue IVF IV Cipro Zofran for nausea and vomiting (5) Hyponatremia Current Visit: Yes Status: Acute Assessment and plan: Monitor sodium levels (6) Hypokalemia Current Visit: Yes Status: Acute Assessment and plan: Repleted today Continue to monitor (7) Hypocalcemia Current Visit: Yes Status: Acute Assessment and plan: Repleted today Continue to monitor (8) Hypochloremia Current Visit: Yes Status: Acute Assessment and plan: Replete with IVF Continue to monitor (9) Schizophrenia Current Visit: Yes Status: Acute Assessment and plan: Manuel Garcia being held due to high level of 1.7 two days ago. Today level is 0.6. Restart Manuel Garcia today (dosed by pharmacy) Restart valproic acid (dosed by pharmacy). Level today 9.26, subtherapeutic Continue haloperidol, klonopin, benztropine, and ativan PRN Qualifiers: Schizophrenia type: unspecified Qualified Code(s): F20.9 - Schizophrenia, unspecified (10) Tobacco abuse Current Visit: Yes Status: Acute Assessment and plan: Smoking cessation counseling previously given for 5 minutes Nicotine patch ordered - Time Spent With Patient 25 - 35 minutes (30 minutes including time with patinet and coordinating care) - Subjective Interval history: Patient is sitting in bed at time of interview. Sister is in room with patient. He continues to have diarrhea. He states that he no longer wants an IV. He is hungry and requests a diet at this time. - Constitutional Vitals: Temp Pulse Resp BP Pulse Ox 99.1 F 85 18 99/58 95 12/03/16 06:58 12/03/16 06:58 12/03/16 06:58 12/03/16 06:58 12/03/16 06:58 General appearance: Present: disheveled, A&O X 2 (Patient oriented to person, time (knows President), but does not know location ([facility])), pleasant Exam: Fails to make eye contact. Fails to answer all questions appropriately. - Head Head exam: Present: atraumatic, normocephalic - Eye Eye exam: Present: PERRL (Pupils sluggishly reactive to light), conjuntiva pink , sclera anicteric - Neck Neck exam general surgery: Present: supple, trachea midline. Absent: lymphadenopathy - Respiratory Respiratory exam: Present: CTAB. Absent: accessory muscle use, rales, rhonchi, wheezes - Cardiovascular Cardiovascular exam: Present: RRR, +S1, +S2. Absent: diastolic murmur, gallop, rubs, systolic murmur - GI/Abdominal GI/Abdominal exam: Present: normal bowel sounds, soft, no peritoneal signs. Absent: distended, tenderness - Extremities Exam Extremities exam: Present: warm, radial pulses palpable and symetrical. Absent : calf tenderness, cyanotic, pedal edema - Neurological Exam Neurological exam: Present: CN II-XII intact, oriented X3, no focal deficits. Absent: pronater drift, facial droop, speech deficit - Psychiatric Additional comments: Patient does not answer questions appropriately. He interjects tangential comments into conversation. - Skin Skin exam: Present: dry, intact Internal Medicine: Result - Labs CBC & Chem 7: 12/03/16 08:25 12/03/16 08:25 Labs: Short CBC 12/03/16 Range/Units 08:25 WBC 4.4 (4.3-11.1) K/mcL Hgb 11.0 L D (12.9-16.9) g/dL Hct 34.0 L (37.5-50.1) % Plt Count 83 L (140-400) K/mcL Neutrophils # 3.3 (1.6-8.9) K/mcL - Impressions I examined this patient and my medical decision-making was reviewed with the PET CARE WORKER/PA/Advanced Practice Nurse/Resident Physician. I agree with the documented findings, disposition and treatment plan as described except to the extent set forth below. Consult Discharge Plan - Plan Referrals: Milka Ellis MD [Primary Care Provider] - (web request sent on 12/03/16) - Attending Attestation I examined this patient and my medical decision-making was reviewed with the LEONARD/PA/Advanced Practice Nurse/Resident Physician. I agree with the documented findings, disposition and treatment plan as described except to the extent set forth below. <Anival Pierson P - Last Filed: 12/03/16 17:38> Date of Encounter: 12/03/16 - Constitutional Vitals: Temp Pulse Resp BP Pulse Ox 99.6 F 83 22 91/60 96 12/03/16 16:10 12/03/16 16:10 12/03/16 16:10 12/03/16 16:10 12/03/16 16:10 Internal Medicine: Result - Labs CBC & Chem 7: 12/03/16 08:25 12/03/16 08:25 Labs: Short CBC 12/03/16 Range/Units 08:25 WBC 4.4 (4.3-11.1) K/mcL Hgb 11.0 L D (12.9-16.9) g/dL Hct 34.0 L (37.5-50.1) % Plt Count 83 L (140-400) K/mcL Neutrophils # 3.3 (1.6-8.9) K/mcL BMP 12/03/16 08:25 Sodium 128 L Potassium 3.4 L Chloride 100 Carbon Dioxide 18 L BUN 10 D Creatinine 0.82 Glucose 101 H Calcium 7.5 L Liver Function 12/03/16 Range/Units 08:25 Total Bilirubin 0.3 (0.2-1.2) mg/dL AST 37 H (5-34) Units/L ALT 21 (0-55) Units/L Alkaline Phosphatase 61 (38-126) Units/L Albumin 2.3 L D (3.5-5.0) g/dL - Attending Attestation I examined this patient and my medical decision-making was reviewed with the PET CARE WORKER/PA/Advanced Practice Nurse/Resident Physician. I agree with the documented findings, disposition and treatment plan as described except to the extent set forth below.
[2016-12-03 11:02] LABS: Alanine Aminotransferase 21 Units/L (0-55); Albumin/Globulin Ratio 0.9 (1.1-2.2); Alkaline Phosphatase 61 Units/L (38-126); Aspartate Amino Transferase 37 Units/L (5-34); BUN/Creatinine Ratio 12 (6-26); Bilirubin,Total 0.3 mg/dL (0.2-1.2); Blood Urea Nitrogen 10 mg/dL (8-26); Calcium 7.5 mg/dL (8.6-10.8); Carbon Dioxide 18 mEq/L (19-29); Chloride 100 mEq/L (98-109); Globulin 2.7 g/dL (2.4-3.5); Glucose 101 mg/dL (70-99); Osmolality,Calculated 265 (280-300); Potassium 3.4 mEq/L (3.5-4.5); Sodium 128 mEq/L (136-145); eGFR For African Americans > 60 (> 60); eGFR For Non-African Americans > 60 (> 60)
[2016-12-03 11:03] LABS: Albumin 2.3 g/dL (3.5-5.0)
[2016-12-03] MEDS: OLANZapine 10 MG TAB.RAPDIS PO SCH (21:08)
[2016-12-03] MEDS: Lithium Carbonate 300 MG CAPSULE PO SCH (21:08)
[2016-12-03] MEDS: Divalproex (24 HR) 500 MG TABLET PO SCH (21:08)
[2016-12-04] MEDS ORDERED: Potassium Chloride 20 MEQ, Lidocaine 1% 2 ML in D5% in Water 250 ML IVPB ONE (05:33)
[2016-12-04] MEDS: *HR* Heparin 5,000 UNIT/ML VIAL SQ SCH ×2 (06:15→17:19)
[2016-12-04 07:10] LABS: Alanine Aminotransferase 31 Units/L (0-55); Albumin 2.5 g/dL (3.5-5.0); Albumin/Globulin Ratio 0.7 (1.1-2.2); Alkaline Phosphatase 89 Units/L (38-126); Aspartate Amino Transferase 55 Units/L (5-34); BUN/Creatinine Ratio 11 (6-26); Bilirubin,Total 0.4 mg/dL (0.2-1.2); Blood Urea Nitrogen 8 mg/dL (8-26); Calcium 7.8 mg/dL (8.6-10.8); Carbon Dioxide 14 mEq/L (19-29); Chloride 101 mEq/L (98-109); Globulin 3.5 g/dL (2.4-3.5); Glucose 80 mg/dL (70-99); Magnesium 2.2 mg/dL (1.6-2.6); Osmolality,Calculated 267 (280-300); Potassium 3.6 mEq/L (3.5-4.5); Sodium 130 mEq/L (136-145); eGFR For African Americans > 60 (> 60); eGFR For Non-African Americans > 60 (> 60)
[2016-12-04 07:46] LABS: Hematocrit 44.3 % (37.5-50.1); Mean Corpuscular HGB Conc 31.2 g/dL (31.6-35.5); Mean Corpuscular Hemoglobin 27.1 pg (28.0-33.3); Red Blood Count 5.09 M/mcL (4.19-5.50); Red Cell Distribution Width 15.8 % (11.5-14.5)
[2016-12-04] MEDS: Nicotine 21 MG PATCH.TD24 TD SCH (08:20)
[2016-12-04] MEDS: Lithium Carbonate 300 MG CAPSULE PO SCH (08:20)
[2016-12-04] MEDS: Divalproex (12 HR) 500 MG TABLET PO SCH ×2 (08:20→17:19)
[2016-12-04] MEDS: clonazePAM 1 MG TABLET PO SCH ×2 (08:24→16:04)
[2016-12-04 08:27] LABS: Hemoglobin 13.8 g/dL (12.9-16.9); Platelet Count 67 K/mcL (140-400)
[2016-12-04 08:36] LABS: Lymphocytes # 0.8 K/mcL (0.6-4.6); Monocytes # 0.3 K/mcL (0.0-1.3); Neutrophils # 5.7 K/mcL (1.6-8.9); Reactive Lymphocytes Present (Not Present)
[2016-12-04 08:38] LABS: Platelet Estimate Decreased (Normal); Toxic Granulation Present (Not Present)
--- NOTE | 2016-12-04 09:54 | Neurology - Consult Note ---
<Neil Barahona - Last Filed: 12/04/16 13:29> Date of Encounter: 12/04/16 Time of Encounter: 09:53 Assessment and Plan (1) Acute metabolic encephalopathy Current Visit: Yes Status: Acute Patient has no focalization of symptoms. The patient answers who he was and his mother, but was unable to determine where he was and the time period. The patient followed all commands easily and was able to identify objects in the room. His responses were overall slow. His movement is slow. The patient's speak was garbled and difficult to discern which is not the patient's baseline according to the mother. The patient was able to tuck his chin to chest and lift bilateral knees to abdomen without difficulty or pain. The patient denied any pain. The patient has numerous electrolyte abnormalities combined with this enterocolitis from salmonella and acute toxicity of lithium. The patient has no meningismus or other signs indication need for lumbar puncture. The patient has no focalized deficits indicating CVA. This appears to be multi-factoral. [place] toxicity can often have delayed effects from toxicity, although his level was 1.7 with the high normal being 1.2 in our laboratory. The combination of the enterocolitis and this likely contributed to the AMS. His sluggish speech and movements can be seen in lithium toxicity. (2) Enterocolitis Current Visit: Yes Status: Acute Salmonella Enterocolitis. Likely contributing factor to patient's AMS. (3) Hypocalcemia Current Visit: Yes Status: Acute Likely a contributor factor to the patient's acute mental status changes. (4) Hyponatremia Current Visit: Yes Status: Acute Likely a contributor to the patient's acute mental status changes. (5) Schizophrenia Current Visit: Yes Status: Chronic Qualifiers: Schizophrenia type: unspecified Qualified Code(s): F20.9 - Schizophrenia, unspecified History of Present Illness Chief complaint: AMS HPI: Mr. Dash is a 36 year old male from group in which he lives for history of schizophrenia, bipolar d/o, on numerous medications for his psychiatric disorders. He apparently had not been feeling well for 3-4 days prior to ED admission. He apparently was experiencing nausea, vomiting, diarrhea. He had recently been treated with antivirals for URI. The patient was admitted to the hospital for this combined with AMS. 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 His mother states that since he got his medications under control he has had no real problems. The patient was found to be hyponatremic, in lithium toxicity, elevated SCr, and found to have salmonella enterocolitis. The patient has continued to improve slightly every day but continues to have difficulty with speech and swallowing. He follows commands and answers some questions correctly. He has failed swallowing studies. He mumbles his words and does not speak clearly which is not his baseline. The patient moving around in bed without difficulty. He denies any complaints other than "tongue on fire". Past Med Surg Social Fam HX - Past Medical History Attestation: Yes The following information was validated with the patient. Source: patient, old records reviewed Medical history: GERD Psychiatric history: schizophrenia - Social History Smoking Status: Current every day smoker Smokeless Tobacco Status: No Alcohol use: none Drug use: none Current living situation: Penit[facility]iary - Family History Mother Adopted: No Family Member Ethnicity: Non- Living Status: Still Living Father Adopted: No Family Member Ethnicity: Non- Living Status: Still Living Hx Family Cardiac Disorders: Yes (heart stent) Hx Family Respiratory Disorders: Yes (copd) Hx Family Endocrine Disorder: Yes (diabetes) Hx Family Psychosocial Disorders: Yes (depression) Medications and Allergies Benztropine Mesylate [Benztropine Mesylate] 1 mg BID 12/01/16 [History] ClonazePAM [Klonopin] 1 mg PO TID 12/01/16 [History] Divalproex (12 HR) [Depakote (12 HR)] 500 mg PO BID 12/01/16 [History] Divalproex (24 HR) [Depakote ER (24 HR)] 1,000 mg PO HS 12/01/16 [History] Haloperidol 10 mg PO QAM 12/01/16 [History] Haloperidol 20 mg PO HS 12/01/16 [History] [place] Carbonate 600 mg PO BID 12/01/16 [History] Mesalamine [Pentasa] 1,000 mg PO QID 12/01/16 [History] OLANZapine [Zyprexa] 20 mg PO HS 12/01/16 [History] Allergies milk Allergy (Verified 12/01/16 16:01) Diarrhea All Systems: A 10-system review of systems was performed and is negative for pertinent findings except as documented above in the HPI. - Constitutional Constitutional ROS IM: malaise, weakness - Nose, Mouth, Throat Nose, mouth and throat: dry mouth, dysphagia - Gastrointestinal Gastrointestinal: change in bowel habits, cramping, diarrhea, nausea - Musculoskeletal Musculoskeletal ROS IM: muscle weakness, myalgias, no neck pain - Neurological Neurological ROS: abnormal speech, behavioral changes, confusion, memory loss, weakness, no numbness, no paresthesias - Psychiatric Psychiatric general PM: change in appetite Physical Examination - Vital Signs Vital Signs: Initial Vital Signs Temp Pulse Resp BP Pulse Ox 99 F 102 20 105/72 95 12/01/16 15:56 12/01/16 15:56 12/01/16 15:56 12/01/16 15:56 12/01/16 15:56 - Constitutional General appearance: comfortable - Neurologic Sensorimotor examination: intact Detailed motor examination: grossly full strength in all extremities Motor examination - right side: 4/5: deltoids, biceps, triceps, wrist flexion, wrist extension, ship wirer, hip flexors, tibialis Anterior, quadriceps, toe extension (EHL), plantarflexion Motor examination - left side: 4/5: deltoids, biceps, triceps, wrist flexion, wrist extension, hip flexors, ship wirer, quadriceps, tibialis Anterior, toe extension (EHL), plantarflexion Detailed sensory examination: intact Reflexes: Biceps: 2+, Brachioradialis: 2+, Patella: 2+, Achilles: 2+ Mental Status Examination: awake, oriented to person, follows commands appropriately, agnosia, drowsy, delerious, expressive aphasia, impaired memory Cranial nerve examination: PERRL, EOMI, visual lakhani intact, corneal reflexes brisk symmetrically, no facial asymmetry is present, hearing is intact symmetrically, soft palate elevates bilaterally upon phonation, gag reflex intact, no atrophy or facial fasiculations present Cerebellar examination: no dysmetria Results - Laboratory Findings CBC and BMP: 12/04/16 05:55 12/04/16 05:55 Abnormal lab findings: Abnormal lab results MCH 27.1 pg (28.0-33.3) L 12/04/16 05:55 MCHC 31.2 g/dL (31.6-35.5) L 12/04/16 05:55 RDW 15.8 % (11.5-14.5) H 12/04/16 05:55 Plt Count 67 K/mcL (140-400) L 12/04/16 05:55 Band Neutrophils % 20.0 % (0-4) H 12/04/16 05:55 Reactive Lymphocytes Present (Not Present) A 12/04/16 05:55 Toxic Granulation Present (Not Present) A 12/04/16 05:55 Toxic Vacuolation Present (Not Present) A 12/01/16 16:23 Platelet Estimate Decreased (Normal) L 12/04/16 05:55 Large Platelets Present (Not Present) A 12/01/16 16:23 Immature Plt Fraction 18.8 % (1.1-6.1) H 12/03/16 08:25 Poikilocytosis 1+ (Not Present) A 12/01/16 16:23 Anisocytosis 1+ (Not Present) A 12/01/16 16:23 Sodium 130 mEq/L (136-145) L 12/04/16 05:55 Carbon Dioxide 14 mEq/L (19-29) L 12/04/16 05:55 Calculated Osmolality 267 (280-300) L 12/04/16 05:55 Uric Acid 9.7 mg/dL (3.5-7.2) H 12/01/16 19:57 Calcium 7.8 mg/dL (8.6-10.8) L 12/04/16 05:55 AST 55 Units/L (5-34) H 12/04/16 05:55 Albumin 2.5 g/dL (3.5-5.0) L 12/04/16 05:55 Albumin/Globulin Ratio 0.7 (1.1-2.2) L 12/04/16 05:55 Urine Clarity Cloudy (Clear) A 12/01/16 17:32 Urine Protein 30 mg/dL (Neg-Trace) H 12/01/16 17:32 Urine Ketones Trace mg/dL (Negative) H 12/01/16 17:32 Urine Blood Trace (Negative) H 12/01/16 17:32 Urine Microscopic RBC 5-15 per hpf (0-3) H 12/01/16 17:32 Ur Squamous Epith Cells Many per lpf (None-Few) H 12/01/16 17:32 Amorphous Sediment Moderate (Few) H 12/01/16 17:32 Stool Salmonella PCR DETECTED (Not detect) A* 12/02/16 01:00 Valproic Acid 9.26 mcg/mL (50-100) L 12/03/16 08:25 - Attending Attestation I examined this patient and my medical decision-making was reviewed with the Resident Physician. I agree with the documented findings, disposition and treatment plan as described except to the extent set forth below. Consult Discharge Plan - Plan Referrals: Milka Ellis MD [Primary Care Provider] - (Doctor follows up with patient at [facility]) <Lydia Huertas I - Last Filed: 12/04/16 15:38> Assessment and Plan (1) Acute metabolic encephalopathy Current Visit: Yes Status: Acute pt seen and examined agree with Dr Hill documentation, will review EEG to make sure no seizures, treat underlying etiology, as seem to be multiple metabolic and toxic abnormalities that is likely contributing to his symptoms, but already vulnerable brain on polypharmacy. Lydia Huertas MD History of Present Illness HPI: Mr. Dash is a 36 year old male All Systems: A 10-system review of systems was performed and is negative for pertinent findings except as documented above in the HPI. Physical Examination - Vital Signs Vital Signs: Initial Vital Signs Temp Pulse Resp BP Pulse Ox 99 F 102 20 105/72 95 12/01/16 15:56 12/01/16 15:56 12/01/16 15:56 12/01/16 15:56 12/01/16 15:56 Results - Laboratory Findings CBC and BMP: 12/04/16 05:55 12/04/16 05:55 Abnormal lab findings: Abnormal lab results MCH 27.1 pg (28.0-33.3) L 12/04/16 05:55 MCHC 31.2 g/dL (31.6-35.5) L 12/04/16 05:55 RDW 15.8 % (11.5-14.5) H 12/04/16 05:55 Plt Count 67 K/mcL (140-400) L 12/04/16 05:55 Band Neutrophils % 20.0 % (0-4) H 12/04/16 05:55 Reactive Lymphocytes Present (Not Present) A 12/04/16 05:55 Toxic Granulation Present (Not Present) A 12/04/16 05:55 Toxic Vacuolation Present (Not Present) A 12/01/16 16:23 Platelet Estimate Decreased (Normal) L 12/04/16 05:55 Large Platelets Present (Not Present) A 12/01/16 16:23 Immature Plt Fraction 18.8 % (1.1-6.1) H 12/03/16 08:25 Poikilocytosis 1+ (Not Present) A 12/01/16 16:23 Anisocytosis 1+ (Not Present) A 12/01/16 16:23 Sodium 130 mEq/L (136-145) L 12/04/16 05:55 Carbon Dioxide 14 mEq/L (19-29) L 12/04/16 05:55 Calculated Osmolality 267 (280-300) L 12/04/16 05:55 Uric Acid 9.7 mg/dL (3.5-7.2) H 12/01/16 19:57 Calcium 7.8 mg/dL (8.6-10.8) L 12/04/16 05:55 AST 55 Units/L (5-34) H 12/04/16 05:55 Albumin 2.5 g/dL (3.5-5.0) L 12/04/16 05:55 Albumin/Globulin Ratio 0.7 (1.1-2.2) L 12/04/16 05:55 Urine Clarity Cloudy (Clear) A 12/01/16 17:32 Urine Protein 30 mg/dL (Neg-Trace) H 12/01/16 17:32 Urine Ketones Trace mg/dL (Negative) H 12/01/16 17:32 Urine Blood Trace (Negative) H 12/01/16 17:32 Urine Microscopic RBC 5-15 per hpf (0-3) H 12/01/16 17:32 Ur Squamous Epith Cells Many per lpf (None-Few) H 12/01/16 17:32 Amorphous Sediment Moderate (Few) H 12/01/16 17:32 Stool Salmonella PCR DETECTED (Not detect) A* 12/02/16 01:00 Valproic Acid 9.26 mcg/mL (50-100) L 12/03/16 08:25
--- NOTE | 2016-12-04 11:01 | Internal Med Progress Note ---
<Mariana Mcghee - Last Filed: 12/04/16 15:06> Date of Encounter: 12/04/16 Time of Encounter: 09:00 - Assessment and plan (1) Bacterial enterocolitis Current Visit: Yes Status: Resolved Assessment and plan: 12/04/16 Continue Ciproflaxacin Lab indicates that salmonella is sensitive to cipro Speciation, pending 12/04/15 Acute metabolic encephalopathy due to salmonella enterocolitis PCR stool sample positive for Salmonella spp. I spoke to lab and found that species will be determined by outside lab and may take [address] abdomen demonstrated enterocolitis Continue Ciprofloxacin (day#2) Continue IVF Isolation precautions High risk due to sepsis (2) Acute metabolic encephalopathy Current Visit: Yes Status: Acute Assessment and plan: 12/04/16 Patient continues to have altered mental status today, worse than yesterday Concern that mental status may be due to polypharmacy of multiple psychiatric medications Psychiatry consult, pending. We appreciate recommendations Neurology believes mental status is secondary to electrolyte disturbance, lithium toxicity, and enterocolitis Continue to monitor valproic acid and lithium levels 12/13/16 Patient's mentation is improving per family Likely mental status change is secondary to salmonella enterocolitis, dehydration, electrolyte disturbance, and lithium toxicity Continue IVF Monitor Valproic acid and [place] levels (3) Dysphagia Current Visit: Yes Status: Acute Assessment and plan: Patient had swallow evaluation per speech therapy today Dysphagia during pharyngeal phase of swallow Recommendation is for pureed textures with honey-thickened liquids Qualifiers: Dysphagia type: pharyngeal phase Qualified Code(s): R13.13 - Dysphagia, pharyngeal phase (4) Acute kidney injury Current Visit: Yes Status: Acute Assessment and plan: Resolved Continue to monitor (5) Dehydration Current Visit: Yes Status: Acute Assessment and plan: 12/04/16 Improving D/C IVF Patient unable tolerate full diet due to dysphagia Continue with pureed textures with honey-thick liquids 12/03/16 Patient's hydration status is improving. Cr is improved at 0.82 today. Advance diet today Continue IVF IV Cipro Zofran for nausea and vomiting (6) Hyponatremia Current Visit: Yes Status: Acute Assessment and plan: 12/04/16 Sodium slowly improving. 130 today, up from 128 yesterday. We will continue to monitor 12/03/16 Monitor sodium levels (7) Hypokalemia Current Visit: Yes Status: Acute Assessment and plan: Repleted today Continue to monitor (8) Hypocalcemia Current Visit: Yes Status: Acute Assessment and plan: Repleted today Continue to monitor (9) Hypochloremia Current Visit: Yes Status: Resolved Assessment and plan: Resolved Continue to monitor (10) Schizophrenia Current Visit: Yes Status: Chronic Assessment and plan: 12/04/16 Concern that polypharmacy of psychotropic medications may be contributing to mental status Psychiatry consulted, appreciate recommendations Patient currently on lithium, valproic acid, zyprexa, klonopin, benztropine Holdol and prn ativan have not been administered according review of medical record 12/03/16 Fraze[place] being held due to high level of 1.7 two days ago. Today level is 0.6. Restart Fra[place] today (dosed by pharmacy) Restart valproic acid (dosed by pharmacy). Level today 9.26, subtherapeutic Continue haloperidol, zyprexa, klonopin, benztropine, and ativan PRN Qualifiers: Schizophrenia type: unspecified Qualified Code(s): F20.9 - Schizophrenia, unspecified (11) Tobacco abuse Current Visit: Yes Status: Acute Assessment and plan: Nicotine patch ordered (12) DVT prophylaxis Current Visit: Yes Status: Acute Assessment and plan: IPCDs ordered - Subjective Interval history: Patient is sitting in bed at time of interview. Mother is in room with patient. Patient has altered mental status at this time. He does answer questions appropriately. However, he has delay of speech and difficulty concentrating during interview. Mother states that patient began having dysphagia yesterday. He is coughing following drinks of water. Mother states that patient is not back to normal. At baseline, patient walks, speaks normally , holds down a job. She states, "before he got sick, he acted just like you or me." Mother expresses concern that he will not return to his previously functional state. - Constitutional Vitals: Temp Pulse Resp BP Pulse Ox 98.0 F 76 17 87/52 96 12/04/16 06:58 12/04/16 06:58 12/04/16 06:58 12/04/16 06:58 12/04/16 06:58 General appearance: Present: disheveled, A&O X 2 (Patient oriented to person, time (knows President), but does not know location ([facility])), pleasant, answers questions appropriately (however, answers occur with considerable delay) - Head Head exam: Present: atraumatic, normocephalic - Eye Eye exam: Present: conjuntiva pink, sclera anicteric Pupils: Present: PERRL - Neck Neck exam general surgery: Present: supple, trachea midline. Absent: lymphadenopathy, thyromegaly - Respiratory Respiratory exam: Present: CTAB. Absent: accessory muscle use, rales, rhonchi, wheezes - Cardiovascular Cardiovascular exam: Present: RRR, +S1, +S2. Absent: diastolic murmur, gallop, rubs, systolic murmur - GI/Abdominal GI/Abdominal exam: Present: normal bowel sounds, soft, no peritoneal signs. Absent: distended, tenderness - Extremities Exam Extremities exam: Present: warm. Absent: calf tenderness, cyanotic, pedal edema - Neurological Exam Neurological exam: Present: CN II-XII intact, no focal deficits. Absent: facial droop, speech deficit Additional comments: Difficult to examine strength due to fact that patient unable to cooperate with exam - Skin Skin exam: Present: dry, intact Internal Medicine: Result - Labs CBC & Chem 7: 12/04/16 05:55 12/04/16 05:55 Labs: Short CBC 12/04/16 Range/Units 05:55 WBC 6.8 D (4.3-11.1) K/mcL Hgb 13.8 D (12.9-16.9) g/dL Hct 44.3 (37.5-50.1) % Plt Count 67 L (140-400) K/mcL Neutrophils # 5.7 (1.6-8.9) K/mcL BMP 12/03/16 12/04/16 08:25 05:55 Sodium 128 L 130 L Potassium 3.4 L 3.6 Chloride 100 101 Carbon Dioxide 18 L 14 L BUN 10 D 8 Creatinine 0.82 0.75 Glucose 101 H 80 Calcium 7.5 L 7.8 L Liver Function 12/03/16 12/04/16 Range/Units 08:25 05:55 Total Bilirubin 0.3 0.4 (0.2-1.2) mg/dL AST 37 H 55 H (5-34) Units/L ALT 21 31 (0-55) Units/L Alkaline Phosphatase 61 89 (38-126) Units/L Albumin 2.3 L D 2.5 L (3.5-5.0) g/dL - Impressions Chest X-Ray 12/01/16 16:07 IMPRESSION: No acute cardiopulmonary disease. D/ / 12/01/2016 16:37:42 Horace Teran MD / lo Interpreting Provider: Horace Teran MD Head CT 12/01/16 16:09 IMPRESSION: No acute intracranial abnormality. D/ / Oswald Mason MD / Oswald Mason MD Interpreting Provider: Oswald Mason MD Abdomen/Pelvis CT 12/01/16 16:16 IMPRESSION: Mural thickening of the distal ileum, right colon, and transverse colon is compatible with enterocolitis. Findings may be inflammatory or infectious in etiology. D/ / 12/01/2016 17:19:45 Sandy Cage MD / lo Interpreting Provider: Sandy Cage MD Consult Discharge Plan - Plan Referrals: Milka Ellis MD [Primary Care Provider] - (Doctor follows up with patient at [facility]) <Anival Pierson P - Last Filed: 12/04/16 18:13> - Constitutional Vitals: Temp Pulse Resp BP Pulse Ox 97.7 F 82 16 89/58 96 12/04/16 17:00 12/04/16 17:00 12/04/16 17:00 12/04/16 17:00 12/04/16 17:00 Internal Medicine: Result - Labs CBC & Chem 7: 12/04/16 05:55 12/04/16 05:55 Labs: Short CBC 12/04/16 Range/Units 05:55 WBC 6.8 D (4.3-11.1) K/mcL Hgb 13.8 D (12.9-16.9) g/dL Hct 44.3 (37.5-50.1) % Plt Count 67 L (140-400) K/mcL Neutrophils # 5.7 (1.6-8.9) K/mcL BMP 12/04/16 05:55 Sodium 130 L Potassium 3.6 Chloride 101 Carbon Dioxide 14 L BUN 8 Creatinine 0.75 Glucose 80 Calcium 7.8 L Liver Function 12/04/16 Range/Units 05:55 Total Bilirubin 0.4 (0.2-1.2) mg/dL AST 55 H (5-34) Units/L ALT 31 (0-55) Units/L Alkaline Phosphatase 89 (38-126) Units/L Albumin 2.5 L (3.5-5.0) g/dL - Attending Attestation I examined this patient and my medical decision-making was reviewed with the COMMUNITY DIRECTOR/PA/Advanced Practice Nurse/Resident Physician. I agree with the documented findings, disposition and treatment plan as described except to the extent set forth below. neurology and psy recommendations appreciated.
--- NOTE | 2016-12-04 16:12 | EEG/EMG/Oth Biometrics Report ---
EEG Procedure Report Procedure Note: Routine EEG Routine 18-channel digital EEG was obtained to rule out any seizure activity or focal abnormalities. FINDINGS: Background rhythm during awake stage shows well-organized, well- developed, average voltage 8 to 9 hertz alpha activity in the posterior regions. It blocks with eye opening and it is bilaterally synchronous and symmetrical. No [id number] discharges or any lateralizing abnormalities are seen. Photic stimulation did not produce any abnormalities. Hyperventilation was not performed. No abnormalities were found during the procedure. Intermittent EMG artifacts were seen. Stage II sleep was not achieved. IMPRESSION: Normal awake study. No epileptiform discharges or any other paroxysmal activities or focal abnormalities seen. Significant electrode and muscle artifact noted but no epileptiform discharges seen. Clinical correlation is recommended.
--- NOTE | 2016-12-04 16:35 | Consult Note ---
Date of Encounter: 12/04/16 Time of Encounter: 15:30 Assessment & Recommendation (1) Acute metabolic encephalopathy Current visit: Yes Status: Acute Assessment & Recommendation: to address polypharmacy and medication levels and interaction with antibiotics I recommend: 1. Discontinue benztropine, clonazepam and olanzapine 2. Reduce the dose of depakote to 500 mg daily 3. Hold lithium 4. Haldol and Ativan when necessary should be used as this is possible When metabolic encephalopathy stabilize you may reconsult to reestablish medication. Thank you for the consultation History of Present Illness Patient: new to practice Requesting Physician: Anival Pierson MD Reason for consult: medication, polypharmacy, toxicity History of present illness: Mr. Dash is a 36 year old male admitted for evaluation and treatment of multiple condition including enterocolitis) daily including lithium and valproic acid hyponatremia dehydration and as her condition as per records. Psychiatric consultation was requested regarding "medication for psychiatric treatment and the persistent level that was detected for lithium and depakote. I reviewed clinical reports and labs and interview with the patient's to evaluate. He was reasonably alert and able to answer some questions but overall he was not clear or relevant. From the record he has a history of schizophrenia and chronic treatment with psychotropic medication. CC: Anival Pierson MD Past Med Surg Social Fam HX - Past Medical History Medical history: GERD - Social History Smoking Status: Current every day smoker Smokeless Tobacco Status: No Alcohol use: none Drug use: none - Family History Mother Adopted: No Family Member Ethnicity: Non- Living Status: Still Living Father Adopted: No Family Member Ethnicity: Non- Living Status: Still Living Hx Family Cardiac Disorders: Yes (heart stent) Hx Family Respiratory Disorders: Yes (copd) Hx Family Endocrine Disorder: Yes (diabetes) Hx Family Psychosocial Disorders: Yes (depression) Medications & Allergies Benztropine Mesylate [Benztropine Mesylate] 1 mg BID 12/01/16 [History] ClonazePAM [Klonopin] 1 mg PO TID 12/01/16 [History] Divalproex (12 HR) [Depakote (12 HR)] 500 mg PO BID 12/01/16 [History] Divalproex (24 HR) [Depakote ER (24 HR)] 1,000 mg PO HS 12/01/16 [History] Haloperidol 10 mg PO QAM 12/01/16 [History] Haloperidol 20 mg PO HS 12/01/16 [History] Starbrick Carbonate 600 mg PO BID 12/01/16 [History] Mesalamine [Pentasa] 1,000 mg PO QID 12/01/16 [History] OLANZapine [Zyprexa] 20 mg PO HS 12/01/16 [History] Allergies milk Allergy (Verified 12/01/16 16:01) Diarrhea Mental Status Exam Patient orientation: Yes Person, Yes Time, Yes Place Level of alertness: Sedated Patient appearance: Unkempt, Disheveled, Bizarre Behavior: cooperative, nervous, withdrawn Psychomotor activity: Slowed Eye contact: Minimal Contact Mood description: Anxious Affect description: constricted, flat Speech pattern: Slowed, Disorganized, Garbled, Mumbled Speech volume: Normal Thought process: Thought Blocking, Disorganized Thought content: No Suicidal ideation, No Homicidal ideation, No Overt delusions Perceptual disturbances: No Auditory hallucinations, No Visual hallucinations Attention span: Unable to Sustain Attention Memory description: Immediate Impaired, Remote Impaired Patient reliability: Not Reliable Historian Intelligence estimate: Below Average Judgment: Limited Insight: Partial Results - Vital Signs Vital signs: Temp Pulse Resp BP Pulse Ox 97.9 F 81 16 84/54 96 12/04/16 13:33 12/04/16 13:33 12/04/16 13:33 12/04/16 13:33 12/04/16 13:33 - Labs Labs: Laboratory Last Values WBC 6.8 K/mcL (4.3-11.1) D 12/04/16 05:55 RBC 5.09 M/mcL (4.19-5.50) 12/04/16 05:55 Hgb 13.8 g/dL (12.9-16.9) D 12/04/16 05:55 Hct 44.3 % (37.5-50.1) 12/04/16 05:55 MCV 87.0 fL (83.0-100.0) 12/04/16 05:55 MCH 27.1 pg (28.0-33.3) L 12/04/16 05:55 MCHC 31.2 g/dL (31.6-35.5) L 12/04/16 05:55 RDW 15.8 % (11.5-14.5) H 12/04/16 05:55 Plt Count 67 K/mcL (140-400) L 12/04/16 05:55 MPV TNP 12/04/16 05:55 Immature Gran % [employer] 12/01/16 16:23 Seg Neutrophils % 64.0 % 12/04/16 05:55 Band Neutrophils % 20.0 % (0-4) H 12/04/16 05:55 Lymphocytes % 12.0 % 12/04/16 05:55 Monocytes % 4.0 % 12/04/16 05:55 Eosinophils % 2.0 % 12/03/16 08:25 Basophils % [employer] 12/01/16 16:23 Neutrophils # 5.7 K/mcL (1.6-8.9) 12/04/16 05:55 Lymphocytes # 0.8 K/mcL (0.6-4.6) 12/04/16 05:55 Monocytes # 0.3 K/mcL (0.0-1.3) 12/04/16 05:55 Eosinophils # 0.1 K/mcL (0.0-0.6) 12/03/16 08:25 Basophils # [employer] 12/01/16 16:23 Reactive Lymphocytes Present (Not Present) A 12/04/16 05:55 Toxic Granulation Present (Not Present) A 12/04/16 05:55 Toxic Vacuolation Present (Not Present) A 12/01/16 16:23 Platelet Estimate Decreased (Normal) L 12/04/16 05:55 Large Platelets Present (Not Present) A 12/01/16 16:23 Immature Plt Fraction 18.8 % (1.1-6.1) H 12/03/16 08:25 Poikilocytosis 1+ (Not Present) A 12/01/16 16:23 Anisocytosis 1+ (Not Present) A 12/01/16 16:23 Smear Path Review See Below 12/01/16 16:23 Sodium 130 mEq/L (136-145) L 12/04/16 05:55 Potassium 3.6 mEq/L (3.5-4.5) 12/04/16 05:55 Chloride 101 mEq/L (98-109) 12/04/16 05:55 Carbon Dioxide 14 mEq/L (19-29) L 12/04/16 05:55 BUN 8 mg/dL (8-26) 12/04/16 05:55 Creatinine 0.75 mg/dL (0.72-1.25) 12/04/16 05:55 Est GFR ( Amer) > 60 (> 60) 12/04/16 05:55 Est GFR (Non-Af Amer) > 60 (> 60) 12/04/16 05:55 BUN/Creatinine Ratio 11 (6-26) 12/04/16 05:55 Glucose 80 mg/dL (70-99) 12/04/16 05:55 Calculated Osmolality 267 (280-300) L 12/04/16 05:55 Lactic Acid 1.3 mmol/L (0.5-2.2) 12/01/16 16:23 Uric Acid 9.7 mg/dL (3.5-7.2) H 12/01/16 19:57 Calcium 7.8 mg/dL (8.6-10.8) L 12/04/16 05:55 Phosphorus 3.9 mg/dL (2.3-4.7) 12/01/16 19:57 Magnesium 2.2 mg/dL (1.6-2.6) 12/04/16 05:55 Total Bilirubin 0.4 mg/dL (0.2-1.2) 12/04/16 05:55 AST 55 Units/L (5-34) H 12/04/16 05:55 ALT 31 Units/L (0-55) 12/04/16 05:55 Alkaline Phosphatase 89 Units/L (38-126) 12/04/16 05:55 Ammonia 27 mcmol/L (18-72) 12/03/16 08:25 Serum Total Protein 6.0 g/dL (6.0-8.3) 12/04/16 05:55 Albumin 2.5 g/dL (3.5-5.0) L 12/04/16 05:55 Globulin 3.5 g/dL (2.4-3.5) 12/04/16 05:55 Albumin/Globulin Ratio 0.7 (1.1-2.2) L 12/04/16 05:55 Vitamin B12 351 pg/mL (213-816) 12/01/16 19:57 Folate 16.3 ng/mL (7.0-31.4) 12/01/16 19:57 TSH 2.046 mcIU/mL (0.350-4.840) 12/01/16 19:57 Urine Color Dark Yellow (Yellow) 12/01/16 17:32 Urine Clarity Cloudy (Clear) A 12/01/16 17:32 Urine pH 5.0 pH Units (5.0-8.0) 12/01/16 17:32 Ur Specific [place] 1.022 (1.010-1.025) 12/01/16 17:32 Urine Protein 30 mg/dL (Neg-Trace) H 12/01/16 17:32 Urine Glucose (UA) Normal mg/dL (Normal) 12/01/16 17:32 Urine Ketones Trace mg/dL (Negative) H 12/01/16 17:32 Urine Blood Trace (Negative) H 12/01/16 17:32 Urine Nitrite Negative (Negative) 12/01/16 17:32 Urine Bilirubin Negative (Negative) 12/01/16 17:32 Urine Urobilinogen Normal mg/dL (Normal) 12/01/16 17:32 Ur Leukocyte Esterase Negative (Negative) 12/01/16 17:32 Urine Microscopic RBC 5-15 per hpf (0-3) H 12/01/16 17:32 Urine Microscopic WBC 0-3 per hpf (0-3) 12/01/16 17:32 Ur Squamous Epith Cells Many per lpf (None-Few) H 12/01/16 17:32 Amorphous Sediment Moderate (Few) H 12/01/16 17:32 Urine Bacteria Few per hpf (None-Few) 12/01/16 17:32 Hyaline Casts None Seen per lpf (None-Few) 12/01/16 17:32 Stl C. cayetanensis PCR Not detected (Not detect) 12/02/16 01:00 Stool Rotavirus A PCR Not detected (Not detect) 12/02/16 01:00 Stl Adenov F 40/41 PCR Not detected (Not detect) 12/02/16 01:00 Stool Astrovirus (PCR) Not detected (Not detect) 12/02/16 01:00 Stool Campylobacter PCR Not detected (Not detect) 12/02/16 01:00 Stl C. diff Tox A/B PCR Not detected (Not detect) 12/02/16 01:00 Stool Cryptosporidium PCR Not detected (Not detect) 12/02/16 01:00 Stl Sh Tox Pr E STEC PCR Not detected (Not detect) 12/02/16 01:00 Stool E coli O157 PCR Not detected (Not detect) 12/02/16 01:00 Stl Enterotoxigenic E PCR Not detected (Not detect) 12/02/16 01:00 Stool EPEC (PCR) Not detected (Not detect) 12/02/16 01:00 Stool EAEC (PCR) Not detected (Not detect) 12/02/16 01:00 Stl E. histolytica PCR Not detected (Not detect) 12/02/16 01:00 Stool Giardia Lamblia PCR Not detected (Not detect) 12/02/16 01:00 Stool Salmonella PCR DETECTED (Not detect) A* 12/02/16 01:00 Stool Sapovirus (PCR) Not detected (Not detect) 12/02/16 01:00 Stl P. shigelloides PCR Not detected (Not detect) 12/02/16 01:00 Stl Shigella/EIEC PCR Not detected (Not detect) 12/02/16 01:00 St Y.enterocolitica PCR Not detected (Not detect) 12/02/16 01:00 Stool Vibrio (PCR) Not detected (Not detect) 12/02/16 01:00 Stl Vibrio cholerae PCR Not detected (Not detect) 12/02/16 01:00 Stl Norovirus GI/GII PCR Not detected (Not detect) 12/02/16 01:00 Stl GI Panel (PCR) Com See below 12/02/16 01:00 Valproic Acid 9.26 mcg/mL (50-100) L 12/03/16 08:25 Starbrick 0.6 mEq/L (0.6-1.2) 12/03/16 08:25 Consult Discharge Plan - Plan Referrals: Milka Ellis MD [Primary Care Provider] - (Doctor follows up with patient at [facility])
[2016-12-04] MEDS: Divalproex (24 HR) 500 MG TABLET PO SCH (20:40)
[2016-12-05] MEDS: *HR* Heparin 5,000 UNIT/ML VIAL SQ SCH ×2 (05:16→16:16)
[2016-12-05 07:08] LABS: Alanine Aminotransferase 38 Units/L (0-55); Albumin 2.7 g/dL (3.5-5.0); Albumin/Globulin Ratio 0.8 (1.1-2.2); Alkaline Phosphatase 100 Units/L (38-126); Aspartate Amino Transferase 43 Units/L (5-34); BUN/Creatinine Ratio 16 (6-26); Bilirubin,Total 0.5 mg/dL (0.2-1.2); Blood Urea Nitrogen 14 mg/dL (8-26); Calcium 8.2 mg/dL (8.6-10.8); Carbon Dioxide 22 mEq/L (19-29); Chloride 97 mEq/L (98-109); Globulin 3.6 g/dL (2.4-3.5); Glucose 116 mg/dL (70-99); Osmolality,Calculated 275 (280-300); Potassium 2.9 mEq/L (3.5-4.5); Sodium 132 mEq/L (136-145); Total Protein 6.3 g/dL (6.0-8.3); eGFR For African Americans > 60 (> 60); eGFR For Non-African Americans > 60 (> 60)
[2016-12-05 08:14] LABS: Immature Platelets 17.7 % (1.1-6.1); Mean Corpuscular HGB Conc 33.3 g/dL (31.6-35.5); Mean Corpuscular Hemoglobin 27.5 pg (28.0-33.3); Mean Corpuscular Volume 82.5 fL (83.0-100.0); Platelet Count 167 K/mcL (140-400); Red Blood Count 5.09 M/mcL (4.19-5.50); Red Cell Distribution Width 15.4 % (11.5-14.5); VBG HCO3 22.2 mEq/L (21-27); VBG PH 7.45 pH Units (7.32-7.42)
[2016-12-05 08:42] LABS: Lymphocytes # 0.4 K/mcL (0.6-4.6); Monocytes # 0.3 K/mcL (0.0-1.3); Neutrophils # 6.7 K/mcL (1.6-8.9)
[2016-12-05 08:43] LABS: Large Platelets Present (Not Present); Platelet Estimate Normal (Normal)
[2016-12-05 08:57] LABS: Uric Acid 8.9 mg/dL (3.5-7.2)
--- NOTE | 2016-12-05 09:34 | Neurology Progress Note ---
Date of Encounter: 12/05/16 Time of Encounter: 09:32 Assessment and Plan (1) Acute metabolic encephalopathy Current Visit: Yes Status: Acute Continued acute metabolic encephalopathy. The patient's global sluggish movements and speech have improved slightly from yesterday. The patient is having intermittent agitation at this time. This appears to be a reflection of the discontinued psychiatric medications. The patient is following all commands appropriately and answer all questions appropriately today. He is alert and oriented 3 upon questioning with knowledge of where he is, the correct date and time, and person as well as the name of his mother. The patient exhibits no signs of visual or auditory hallucinations at this time. He is becoming uncooperative with blood draws and medication. EEG is negative for any acute findings. The patient is demonstrating no seizure -like activity. We continue to believe the patient is experiencing acute metabolic encephalopathy combined with his illness, electrolyte imbalances, psychiatric overtones. We will follow up with patient as needed. (2) Enterocolitis Current Visit: Yes Status: Acute Salmonella Enterocolitis. Likely contributing factor to patient's AMS. (3) Hypocalcemia Current Visit: Yes Status: Acute (4) Hyponatremia Current Visit: Yes Status: Acute (5) Schizophrenia Current Visit: Yes Status: Chronic Qualifiers: Schizophrenia type: unspecified Qualified Code(s): F20.9 - Schizophrenia, unspecified Subjective Principal diagnosis: Altered mental status Interval history: Patient remains globally sluggish but improved from previous day. Psychiatry is seeing the patient and recommended discontinuing his psychiatric medicines at this time until his acute metabolic encephalopathy improves. The patient's EEG was negative yesterday. The patient denies any complaints at this time other than a dry mouth. He also states that "the food is awful". The patient appears to be mentating appropriately with the exception of slight agitation and poor cooperation with examination. Objective - Constitutional Vitals: Temp Pulse Resp BP Pulse Ox 97.4 F L 88 12 104/71 98 12/05/16 07:21 12/05/16 07:21 12/05/16 07:21 12/05/16 07:21 12/05/16 07:21 General appearance: Present: cooperative (Patient is cooperative however he is having intermittent episodes of agitation although he is easily comforted.), A& O X 3, no acute distress, answers questions appropriately - Neurological Exam Sensorimotor examination: Present: intact Motor Examination: Present: grossly full strength in all extremities Motor examination - right side: 4/5: deltoids, biceps, triceps, wrist flexion, wrist extension, assistant manager quality management, hip flexors, tibialis Anterior, quadriceps, toe extension (EHL), plantarflexion Motor examination - left side: 4/5: deltoids, biceps, triceps, wrist flexion, wrist extension, hip flexors, assistant manager quality management, quadriceps, tibialis Anterior, toe extension (EHL), plantarflexion Sensation intact: Present: intact Reflexes: Biceps: 2+, Brachioradialis: 2+, Patella: 2+, Achilles: 2+ Mental Status Examination: Present: awake, oriented to person, follows commands appropriately, agnosia, drowsy, expressive aphasia, impaired memory Cranial nerve examination: Present: PERRL, EOMI, visual lakhani intact, corneal reflexes brisk symmetrically, mastication intact, no facial asymmetry is present , hearing is intact symmetrically, soft palate elevates bilaterally upon phonation, gag reflex intact, no atrophy or facial fasiculations present Cerebellar examination: Present: no dysmetria Results - Laboratory Findings CBC and BMP: 12/05/16 08:05 12/05/16 05:52 Abnormal lab findings: Abnormal lab results MCV 82.5 fL (83.0-100.0) L 12/05/16 08:05 MCH 27.5 pg (28.0-33.3) L 12/05/16 08:05 RDW 15.4 % (11.5-14.5) H 12/05/16 08:05 MPV 13.0 fL (9.4-12.4) H 12/05/16 08:05 Band Neutrophils % 20.0 % (0-4) H 12/05/16 08:05 Lymphocytes # 0.4 K/mcL (0.6-4.6) L 12/05/16 08:05 Reactive Lymphocytes Present (Not Present) A 12/04/16 05:55 Toxic Granulation Present (Not Present) A 12/04/16 05:55 Toxic Vacuolation Present (Not Present) A 12/01/16 16:23 Large Platelets Present (Not Present) A 12/05/16 08:05 Immature Plt Fraction 17.7 % (1.1-6.1) H 12/05/16 08:05 Poikilocytosis 1+ (Not Present) A 12/01/16 16:23 Anisocytosis 1+ (Not Present) A 12/01/16 16:23 VBG pH 7.45 pH Units (7.32-7.42) H 12/05/16 08:05 VBG pCO2 32 mmHg (41-51) L 12/05/16 08:05 VBG pO2 108 mmHg (25-40) H 12/05/16 08:05 Sodium 132 mEq/L (136-145) L 12/05/16 05:52 Potassium 2.9 mEq/L (3.5-4.5) L 12/05/16 05:52 Chloride 97 mEq/L (98-109) L 12/05/16 05:52 Glucose 116 mg/dL (70-99) H 12/05/16 05:52 Calculated Osmolality 275 (280-300) L 12/05/16 05:52 Uric Acid 8.9 mg/dL (3.5-7.2) H 12/05/16 05:52 Calcium 8.2 mg/dL (8.6-10.8) L 12/05/16 05:52 AST 43 Units/L (5-34) H 12/05/16 05:52 Albumin 2.7 g/dL (3.5-5.0) L 12/05/16 05:52 Globulin 3.6 g/dL (2.4-3.5) H 12/05/16 05:52 Albumin/Globulin Ratio 0.8 (1.1-2.2) L 12/05/16 05:52 Urine Clarity Cloudy (Clear) A 12/01/16 17:32 Urine Protein 30 mg/dL (Neg-Trace) H 12/01/16 17:32 Urine Ketones Trace mg/dL (Negative) H 12/01/16 17:32 Urine Blood Trace (Negative) H 12/01/16 17:32 Urine Microscopic RBC 5-15 per hpf (0-3) H 12/01/16 17:32 Ur Squamous Epith Cells Many per lpf (None-Few) H 12/01/16 17:32 Amorphous Sediment Moderate (Few) H 12/01/16 17:32 Stool Salmonella PCR DETECTED (Not detect) A* 12/02/16 01:00 Valproic Acid 9.26 mcg/mL (50-100) L 12/03/16 08:25 Consult Discharge Plan - Plan Referrals: Milka Ellis MD [Primary Care Provider] - (Doctor follows up with patient at [facility]) - Attending Attestation I examined this patient and my medical decision-making was reviewed with the Resident Physician. I agree with the documented findings, disposition and treatment plan as described except to the extent set forth below.
[2016-12-05] MEDS: clonazePAM 0.5 MG TABLET PO SCH ×2 (09:42→15:10)
[2016-12-05] MEDS: Nicotine 21 MG PATCH.TD24 TD SCH (09:42)
[2016-12-05] MEDS: Divalproex (12 HR) 500 MG TABLET PO SCH ×2 (09:42→16:16)
[2016-12-05] MEDS ORDERED: Haloperidol Lactate 5 MG/ML VIAL IVP ONE (11:24)
[2016-12-05] MEDS ORDERED: *HR* LORazepam 2 MG/ML VIAL IVP ONE ×2 (11:29→11:54)
[2016-12-05] MEDS ORDERED: Haloperidol Lactate 5 MG/ML VIAL IVP PRN (11:54)
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
[2016-12-05] MEDS ORDERED: 0.9 % Sodium Chloride 1,000 ML IVC SCH (14:30)
[2016-12-05 14:41] LABS: Valproate Free <7 ug/mL (7-23)
[2016-12-05 14:54] LABS: Hematocrit 42.1 % (37.5-50.1); Hemoglobin 14.1 g/dL (12.9-16.9); Mean Corpuscular HGB Conc 33.5 g/dL (31.6-35.5); Mean Corpuscular Hemoglobin 27.4 pg (28.0-33.3); Mean Corpuscular Volume 81.9 fL (83.0-100.0); Mean Platelet Volume 12.5 fL (9.4-12.4); Platelet Count 181 K/mcL (140-400); Red Blood Count 5.14 M/mcL (4.19-5.50); Red Cell Distribution Width 15.2 % (11.5-14.5)
[2016-12-05 15:03] LABS: INR 1.5; Prothrombin Time 16.3 Seconds (9.4-12.1)
[2016-12-05 15:07] LABS: Alanine Aminotransferase 41 Units/L (0-55); Albumin 2.8 g/dL (3.5-5.0); Albumin/Globulin Ratio 0.8 (1.1-2.2); Alkaline Phosphatase 108 Units/L (38-126); Aspartate Amino Transferase 41 Units/L (5-34); BUN/Creatinine Ratio 15 (6-26); Bilirubin,Total 0.5 mg/dL (0.2-1.2); Blood Urea Nitrogen 16 mg/dL (8-26); Calcium 8.2 mg/dL (8.6-10.8); Carbon Dioxide 20 mEq/L (19-29); Chloride 97 mEq/L (98-109); Globulin 3.7 g/dL (2.4-3.5); Glucose 159 mg/dL (70-99); Osmolality,Calculated 277 (280-300); Potassium 3.5 mEq/L (3.5-4.5); Sodium 131 mEq/L (136-145); Total Protein 6.5 g/dL (6.0-8.3); eGFR For African Americans > 60 (> 60); eGFR For Non-African Americans > 60 (> 60)
[2016-12-05 15:15] LABS: Lymphocytes # 0.3 K/mcL (0.6-4.6); Monocytes # 0.4 K/mcL (0.0-1.3); Neutrophils # 8.1 K/mcL (1.6-8.9); Platelet Estimate Normal (Normal)
--- NOTE | 2016-12-05 16:46 | Physician Discharge Referral ---
<TazMarianafrancy Nowak - Last Filed: 12/05/16 17:54> ExtendedCare Referral Info Transfer To: [facility] Provider in Charge: Dr. Anival Pierson MD Provider in Charge after Transfer: PCP Institutional Level of Care: Skilled - Diagnosis (1) Bacterial enterocolitis Priority: Primary Status: Acute (2) Acute metabolic encephalopathy Priority: Primary Status: Acute (3) Dysphagia Priority: Secondary Status: Acute (4) Acute kidney injury Priority: Secondary Status: Resolved (5) Dehydration Priority: Secondary Status: Resolved (6) Hyponatremia Priority: Secondary Status: Resolved (7) Hypokalemia Priority: Secondary Status: Resolved (8) Hypocalcemia Priority: Secondary Status: Resolved (9) Hypochloremia Priority: Secondary Status: Resolved (10) Schizophrenia Priority: Secondary Status: Chronic (11) Tobacco abuse Priority: Secondary Status: Chronic (12) DVT prophylaxis Priority: Secondary Status: Acute Expected Duration of Placement: 30 days Prognosis: Fair Aware of Diagnosis: Family Aware of Prognosis: Family - Transfer Medications Prescriptions: Haloperidol [Haldol] 5 mg PO Q4HR 30 Days Haloperidol Lactate [Haldol] 5 mg IM Q4HR 30 Days LORazepam [Ativan] 1 mg IM Q4HR PRN 30 Days PRN Reason: Anxiety LORazepam [Ativan] 1 mg PO Q4HR 30 Days Ciprofloxacin [Cipro] 500 mg PO BID 4 Days ClonazePAM [Klonopin] 0.5 mg PO TID 30 Days Home Medications: Benztropine Mesylate 1 mg BID 12/01/16 [History] Divalproex (12 HR) [Depakote (12 HR)] 500 mg PO BID 12/01/16 [History] Divalproex (24 HR) [Depakote ER (24 HR)] 1,000 mg PO HS 12/01/16 [History] Mesalamine [Pentasa] 1,000 mg PO QID 12/01/16 [History] Ciprofloxacin [Cipro] 500 mg PO BID 4 Days 12/05/16 [Rx] ClonazePAM [Klonopin] 0.5 mg PO TID 30 Days 12/05/16 [Rx] Haloperidol Lactate [Haldol] 5 mg IM Q4HR 30 Days 12/05/16 [Rx] Haloperidol [Haldol] 5 mg PO Q4HR 30 Days 12/05/16 [Rx] LORazepam [Ativan] 1 mg IM Q4HR PRN 30 Days 12/05/16 [Rx] LORazepam [Ativan] 1 mg PO Q4HR 30 Days 12/05/16 [Rx] Nicotine Patch [Nicoderm] 21 mg TD DAILY patch.td24 12/05/16 [Rx] Allergies/Adverse Reactions: Allergies milk Allergy (Verified 12/01/16 16:01) Diarrhea - Respiratory Orders Smoking Cessation: Smoking cessation has been advised. For more information, call the [employer] Quit Line at 2-339-CGHANOW. - Advance Directives Code Status: Full Code - Mobility Orders Ambulate (PER PHYSICAL THERAPY) - Rehabiliation Orders Rehab Potential: Good Rehab Orders: Evaluation for Physical Therapy, Evaluation for Occupational Therapy - Diet Orders Pureed (Pureed foods with honey-thickened liquids until patient undergoes formal swallow evaluation) CERTIFICATION: I certify that the transfer of the above named patient to an Extended Care Facility is necessary for the continuing treatment of the diagnosis listed. The above information is true and accurate reflection of patient's current condition. Confidential - Redisclosure prohibited without a patient's written consent. <Anival Pierson P - Last Filed: 12/05/16 18:45> - Respiratory Orders Smoking Cessation: Smoking cessation has been advised. For more information, call the [employer] Quit Line at 5-079-JRMU-NOW. CERTIFICATION: I certify that the transfer of the above named patient to an Extended Care Facility is necessary for the continuing treatment of the diagnosis listed. The above information is true and accurate reflection of patient's current condition. Confidential - Redisclosure prohibited without a patient's written consent.
[2016-12-05 17:28] VITALS: BP 92/63
[2016-12-06 07:41] LABS: Valproate Total 9 ug/mL (50-125)
== END 2016-12-05 18:57 | DRG 871 ==
LOC: 2ANU 15:54 → EMEROO 15:54 → SUATTDRO 18:22 → 2ANU 19:31
PROVIDERS: ADMIT Internal Medicine; ATTEND Internal Medicine

== ENCOUNTER 2016-12-10 19:46 | Inpatient (IN) ==
--- NOTE | 2016-12-10 20:00 | Emergency Department Note ---
Disposition Clinical Impression: Altered mental status Qualifiers: Altered mental status type: unspecified Qualified Code(s): R41.82 - Altered mental status, unspecified Leukocytosis Qualifiers: Leukocytosis type: unspecified Qualified Code(s): D72.829 - Elevated white blood cell count, unspecified Fever Qualifiers: Fever type: unspecified Qualified Code(s): R50.9 - Fever, unspecified Disposition: Admitted As Inpatient Condition: Fair Referrals: Jaspal Braun MD [Non-Partnered Physician] - Forms: ED Satisfaction Letter Time of Disposition: 22:41 General Adult HPI - General Chief complaint: ED Fever Stated complaint: fever Time Seen by Provider: 12/10/16 19:56 Source: EMS, other Mode of arrival: EMS Limitations: altered mental status Nursing Notes Reviewed: Yes Vital Signs Reviewed: Yes - History of Present Illness HPI Narrative: Patient is a 36-year-old male with past medical history of schizophrenia, seizures, also recent admission on 12/01/2016 for Salmonella enterocolitis, hypokalemia, hyponatremia, a KI, dehydration, altered mental status. During his stay, it was hypothesized that some of his psychiatric medications were causing his altered mental status. At that time, he was on Zyprexa, lithium, allopurinol, valproic acid, clonazepam and was found to have high levels of lithium and valproic acid. Psychiatry recommended that he be taken off Zyprexa , lithium, Klonopin. They recommended primarily using Haldol and Ativan when necessary. He presents as a transfer today from [facility] due to concern of continued altered mental status, fevers up to 104, refusal to take medications. There is also a chest x-ray that was completed that showed a right lower lobe infiltrate. On presentation, patient follows commands but groans instead of answering any questions. Review of systems cannot be obtained. - Related Data Home Medications Medication Instructions Recorded Confirmed Benztropine Mesylate 1 mg BID 12/01/16 12/02/16 Divalproex (12 HR) [Depakote (12 500 mg PO BID 12/01/16 12/02/16 HR)] Divalproex (24 HR) [Depakote ER 1,000 mg PO HS 12/01/16 12/02/16 (24 HR)] Mesalamine [Pentasa] 1,000 mg PO QID 12/01/16 12/02/16 Previous Rx's Medication Instructions Recorded Ciprofloxacin [Cipro] 500 mg PO BID 4 Days 12/05/16 ClonazePAM [Klonopin] 0.5 mg PO TID 30 Days 12/05/16 Haloperidol Lactate [Haldol] 5 mg IM Q4HR 30 Days 12/05/16 Haloperidol [Haldol] 5 mg PO Q4HR 30 Days 12/05/16 LORazepam [Ativan] 1 mg IM Q4HR PRN 30 Days 12/05/16 LORazepam [Ativan] 1 mg PO Q4HR 30 Days 12/05/16 Nicotine Patch [Nicoderm] 21 mg TD DAILY patch.td24 12/05/16 Allergies Allergy/AdvReac Type Severity Reaction Status Date / Time milk Allergy Diarrhea Verified 12/01/16 16:01 Limitations: ROS unobtainable due to patients medical condition Past Medical History - Past Medical History Medical history: Reports: GERD Psychiatric history: Reports: schizophrenia - Social History Smoking Status: Current every day smoker Smokeless Tobacco Status: No Alcohol use: Reports: none Drug use: Reports: none Physical Exam - General Limitations: altered mental status General appearance: alert - Head Head exam: atraumatic, normocephalic, normal inspection - Eye Eye exam: Present: normal appearance, PERRL, EOMI - ENT ENT exam: normal exam, normal oropharynx, mucous membranes moist - Neck Neck exam: Present: normal inspection, full ROM, trachea midline - Chest Chest inspection: Present: normal inspection, symmetric chest wall rise - Respiratory Respiratory exam: Present: other (Rales and crackles in right lower lobe) - Cardiovascular Cardiovascular exam: Present: regular rate, normal rhythm, normal heart sounds - Abdominal Exam Abdominal exam: Present: soft, Non-Tender. Absent: tenderness, distention, guarding, rebound, rigidity - Extremities Exam Extremities exam: Present: normal inspection, full ROM. Absent: tenderness, pedal edema - Neurological Exam Neurological exam: Present: other (Patient groaning, will not form words to answer any questions. Appears to be rigid. Will follow some commands like hand squeeze bilaterally and wiggling toes bilaterally. Otherwise, will not follow and other commands. ) - Psychiatric Psychiatric exam: Present: other (Catatonic appearing) - Skin Skin exam: Present: warm, dry, intact, normal color Course Course Narrative: Vitals within normal limits on my exam. Patient appears to be catatonic. Very rigid, follows some commands like bilateral hand squeeze, wiggling all toes of bilateral lower 70s. However, he will not follow any other commands. Will not answer any questions on exam and groans continuously. Negative meningeal signs He does have crackles and rales in the right lower lobe. Otherwise, cardiac, abdomen, HEENT exam is benign. We will perform full altered mental status workup and then admit. 22:42 Leukocytosis present, temp 100.[address] negative, CXR negative. UA negative for UTI. No major concern in BMP. Discussed with hospitalist and he wanted a CPK and lithium level added along with fluids and levaquin for leukocytosis could be from salmonella enerocolitis history. Fmaily updated and agreeable with admisison. Vital Signs Temperature 98.3 F 12/10/16 19:53 Pulse Rate 113 12/10/16 19:53 Respiratory Rate 20 12/10/16 19:53 Blood Pressure 124/97 12/10/16 19:53 O2 Sat by Pulse Oximetry 96 12/10/16 19:53 Temperature 100.1 F H 12/10/16 21:21 Pulse Rate 116 12/10/16 21:21 Respiratory Rate 18 12/10/16 21:21 Blood Pressure 137/94 12/10/16 21:21 O2 Sat by Pulse Oximetry 94 L 12/10/16 21:21 Oxygen Delivery Oxygen Delivery Nasal Cannula Medical Decision Making - [facility] Narrative Medical decision making narrative: Vitals within normal limits on my exam. Patient appears to be catatonic. Very rigid, follows some commands like bilateral hand squeeze, wiggling all toes of bilateral lower 70s. However, he will not follow any other commands. Will not answer any questions on exam and groans continuously. Negative meningeal signs He does have crackles and rales in the right lower lobe. Otherwise, cardiac, abdomen, HEENT exam is benign. We will perform full altered mental status workup and then admit. 22:42 Leukocytosis present, temp 100.[address] negative, CXR negative. UA negative for UTI. No major concern in BMP. Discussed with hospitalist and he wanted a CPK and lithium level added along with fluids and levaquin for leukocytosis could be from salmonella enerocolitis history. Fmaily updated and agreeable with admisison. - Medical Records Medical records reviewed: Yes I reviewed the patient's medical records. - Lab Data Lab results reviewed: Yes I reviewed the patient's lab results. Result diagrams: 12/10/16 21:16 12/10/16 21:16 Lab Results 12/10/16 12/10/16 12/10/16 Range/Units 20:40 20:40 20:48 WBC (4.3-11.1) K/mcL RBC (4.19-5.50) M/mcL Hgb (12.9-16.9) g/dL Hct (37.5-50.1) % MCV (83.0-100.0) fL MCH (28.0-33.3) pg MCHC (31.6-35.5) g/dL RDW (11.5-14.5) % Plt Count (140-400) K/mcL MPV (9.4-12.4) fL Seg Neutrophils % % Band Neutrophils % (0-4) % Lymphocytes % % Monocytes % % Neutrophils # (1.6-8.9) K/mcL Lymphocytes # (0.6-4.6) K/mcL Monocytes # (0.0-1.3) K/mcL Toxic Granulation (Not Present) Platelet Estimate (Normal) Immature Plt Fraction (1.1-6.1) % PT 16.5 H (9.4-12.1) Seconds INR 1.5 APTT 43.7 H (26.0-36.0) Seconds Sodium (136-145) mEq/L Potassium (3.5-4.5) mEq/L Chloride (98-109) mEq/L Carbon Dioxide (19-29) mEq/L BUN (8-26) mg/dL Creatinine (0.72-1.25) mg/dL Est GFR ( Amer) (> 60) Est GFR (Non-Af Amer) (> 60) BUN/Creatinine Ratio (6-26) Glucose (70-99) mg/dL POC Glucose 127 H (58-89) Calculated Osmolality (280-300) Calcium (8.6-10.8) mg/dL Total Bilirubin (0.2-1.2) mg/dL Direct Bilirubin (0.0-0.5) mg/dL Indirect Bilirubin (0.0-1.2) mg/dL AST (5-34) Units/L ALT (0-55) Units/L Alkaline Phosphatase (38-126) Units/L Troponin I (0-0.03) ng/mL Serum Total Protein (6.0-8.3) g/dL Albumin (3.5-5.0) g/dL Globulin (2.4-3.5) g/dL Albumin/Globulin Ratio (1.1-2.2) Urine Color (Yellow) Urine Clarity (Clear) Urine pH (5.0-8.0) pH Units Ur Specific [place] (1.010-1.025) Urine Protein (Neg-Trace) mg/dL Urine Glucose (UA) (Normal) mg/dL Urine Ketones (Negative) mg/dL Urine Blood (Negative) Urine Nitrite (Negative) Urine Bilirubin (Negative) Urine Urobilinogen (Normal) mg/dL Ur Leukocyte Esterase (Negative) Urine Microscopic RBC (0-3) per hpf Urine Microscopic WBC (0-3) per hpf Ur Squamous Epith Cells (None-Few) per lpf [place] Biurate Crystals Urine Bacteria (None-Few) per hpf Hyaline Casts Ur Culture Indicated? (NO) Urine Opiates Screen (Zbicod=483) ng/mL Ur Barbiturates Screen (Vwvvjk=117) ng/mL Ur Phencyclidine Scrn (Cutoff=25) ng/mL Ur Amphetamines Screen (Irplhf=2505) ng/mL U Benzodiazepines Scrn (Vshzyg=341) ng/mL Fonda 0.6 (0.6-1.2) mEq/L Urine Cocaine Screen (Cutoff= 300) ng/mL U Marijuana (THC) Screen (Cutoff = 50) ng/mL Ethyl Alcohol (0-10) mg/dL Specimen Rejected 12/10/16 12/10/16 12/10/16 Range/Units 21:04 21:04 21:05 WBC (4.3-11.1) K/mcL RBC (4.19-5.50) M/mcL Hgb (12.9-16.9) g/dL Hct (37.5-50.1) % MCV (83.0-100.0) fL MCH (28.0-33.3) pg MCHC (31.6-35.5) g/dL RDW (11.5-14.5) % Plt Count (140-400) K/mcL MPV (9.4-12.4) fL Seg Neutrophils % % Band Neutrophils % (0-4) % Lymphocytes % % Monocytes % % Neutrophils # (1.6-8.9) K/mcL Lymphocytes # (0.6-4.6) K/mcL Monocytes # (0.0-1.3) K/mcL Toxic Granulation (Not Present) Platelet Estimate (Normal) Immature Plt Fraction (1.1-6.1) % PT (9.4-12.1) Seconds INR APTT (26.0-36.0) Seconds Sodium (136-145) mEq/L Potassium (3.5-4.5) mEq/L Chloride (98-109) mEq/L Carbon Dioxide (19-29) mEq/L BUN (8-26) mg/dL Creatinine (0.72-1.25) mg/dL Est GFR ( Amer) (> 60) Est GFR (Non-Af Amer) (> 60) BUN/Creatinine Ratio (6-26) Glucose (70-99) mg/dL POC Glucose (58-89) Calculated Osmolality (280-300) Calcium (8.6-10.8) mg/dL Total Bilirubin (0.2-1.2) mg/dL Direct Bilirubin (0.0-0.5) mg/dL Indirect Bilirubin (0.0-1.2) mg/dL AST (5-34) Units/L ALT (0-55) Units/L Alkaline Phosphatase (38-126) Units/L Troponin I (0-0.03) ng/mL Serum Total Protein (6.0-8.3) g/dL Albumin (3.5-5.0) g/dL Globulin (2.4-3.5) g/dL Albumin/Globulin Ratio (1.1-2.2) Urine Color Dark Yellow (Yellow) Urine Clarity Turbid A (Clear) Urine pH 6.5 (5.0-8.0) pH Units Ur Specific [place] > 1.030 H (1.010-1.025) Urine Protein 30 H (Neg-Trace) mg/dL Urine Glucose (UA) Normal (Normal) mg/dL Urine Ketones Trace H (Negative) mg/dL Urine Blood Negative (Negative) Urine Nitrite Negative (Negative) Urine Bilirubin Negative (Negative) Urine Urobilinogen Normal (Normal) mg/dL Ur Leukocyte Esterase Negative (Negative) Urine Microscopic RBC 0-3 (0-3) per hpf Urine Microscopic WBC 5-15 H (0-3) per hpf Ur Squamous Epith Cells Many H (None-Few) per lpf [place] Biurate Crystals Present Urine Bacteria Few (None-Few) per hpf Hyaline Casts Test Not Performed Ur Culture Indicated? YES A (NO) Urine Opiates Screen Negative (Ddepkb=753) ng/mL Ur Barbiturates Screen Negative (Yltsgr=407) ng/mL Ur Phencyclidine Scrn Negative (Cutoff=25) ng/mL Ur Amphetamines Screen Negative (Fxvddq=5664) ng/mL U Benzodiazepines Scrn Negative (Pesmua=078) ng/mL [place]onda (0.6-1.2) mEq/L Urine Cocaine Screen Negative (Cutoff= 300) ng/mL U Marijuana (THC) Screen Negative (Cutoff = 50) ng/mL Ethyl Alcohol (0-10) mg/dL Specimen Rejected Miscellaneous 12/10/16 12/10/16 12/10/16 Range/Units 21:16 21:16 21:16 WBC 20.9 H D (4.3-11.1) K/mcL RBC 4.68 (4.19-5.50) M/mcL Hgb 12.6 L D (12.9-16.9) g/dL Hct 39.7 (37.5-50.1) % MCV 84.8 (83.0-100.0) fL MCH 26.9 L (28.0-33.3) pg MCHC 31.7 (31.6-35.5) g/dL RDW 15.8 H (11.5-14.5) % Plt Count 689 H D (140-400) K/mcL MPV 8.9 L (9.4-12.4) fL Seg Neutrophils % 78.0 % Band Neutrophils % 2.0 (0-4) % Lymphocytes % 6.0 % Monocytes % 14.0 % Neutrophils # 16.7 H (1.6-8.9) K/mcL Lymphocytes # 1.3 (0.6-4.6) K/mcL Monocytes # 2.9 H (0.0-1.3) K/mcL Toxic Granulation Present A (Not Present) Platelet Estimate Marked Increase H (Normal) Immature Plt Fraction 1.4 (1.1-6.1) % PT (9.4-12.1) Seconds INR APTT (26.0-36.0) Seconds Sodium 141 (136-145) mEq/L Potassium 3.3 L (3.5-4.5) mEq/L Chloride 109 (98-109) mEq/L Carbon Dioxide 21 (19-29) mEq/L BUN 29 H (8-26) mg/dL Creatinine 0.84 (0.72-1.25) mg/dL Est GFR ( Amer) > 60 (> 60) Est GFR (Non-Af Amer) > 60 (> 60) BUN/Creatinine Ratio 35 H (6-26) Glucose 123 H (70-99) mg/dL POC Glucose (58-89) Calculated Osmolality 299 (280-300) Calcium 8.2 L (8.6-10.8) mg/dL Total Bilirubin 0.5 (0.2-1.2) mg/dL Direct Bilirubin 0.3 (0.0-0.5) mg/dL Indirect Bilirubin 0.2 (0.0-1.2) mg/dL AST 69 H (5-34) Units/L ALT 75 H (0-55) Units/L Alkaline Phosphatase 101 (38-126) Units/L Troponin I 0.00 (0-0.03) ng/mL Serum Total Protein 6.0 (6.0-8.3) g/dL Albumin 2.9 L (3.5-5.0) g/dL Globulin 3.1 (2.4-3.5) g/dL Albumin/Globulin Ratio 0.9 L (1.1-2.2) Urine Color (Yellow) Urine Clarity (Clear) Urine pH (5.0-8.0) pH Units Ur Specific [place] (1.010-1.025) Urine Protein (Neg-Trace) mg/dL Urine Glucose (UA) (Normal) mg/dL Urine Ketones (Negative) mg/dL Urine Blood (Negative) Urine Nitrite (Negative) Urine Bilirubin (Negative) Urine Urobilinogen (Normal) mg/dL Ur Leukocyte Esterase (Negative) Urine Microscopic RBC (0-3) per hpf Urine Microscopic WBC (0-3) per hpf Ur Squamous Epith Cells (None-Few) per lpf [place] Biurate Crystals Urine Bacteria (None-Few) per hpf Hyaline Casts Ur Culture Indicated? (NO) Urine Opiates Screen (Bsiztm=424) ng/mL Ur Barbiturates Screen (Aghdmg=783) ng/mL Ur Phencyclidine Scrn (Cutoff=25) ng/mL Ur Amphetamines Screen (Alrlyj=5410) ng/mL U Benzodiazepines Scrn (Fndddx=685) ng/mL Fonda (0.6-1.2) mEq/L Urine Cocaine Screen (Cutoff= 300) ng/mL U Marijuana (THC) Screen (Cutoff = 50) ng/mL Ethyl Alcohol < 10 (0-10) mg/dL Specimen Rejected - Radiology Data Radiology results reviewed: Yes I reviewed the patient's radiology results. Chest X-Ray 12/10/16 20:03 IMPRESSION: No acute process. D/ / Brian Saucedo MD / Brian Saucedo MD Interpreting Provider: Brian Saucedo MD Head CT 12/10/16 20:04 IMPRESSION: No acute intracranial abnormality. D/ / Nathaniel Roca MD / Nathaniel Roca MD Interpreting Provider: Nathaniel Roca MD Critical Care Time Critical Care Time: Yes Total Critical Care Time: 45 Attestation: Critical care performed: Time is exclusive of separately billable procedures. Time includes: direct patient care, patient reassessment, coordination of patient care, interpretation of data (laboratory data, radiology data, and respiratory data), review of patient's medical records, medical consultation and documentation of patient care. Procedures included in critical care time: None Procedures excluded from critical care time: None S.B.A.R. - S.B.A.R. Situation: Demographics, MOA Background: Presenting Complaint, Relevant PMH, Meds, & Allergies Assessment: Vital Signs, Course and respsone to treatment, Exam Concerns, Patient/Family Expectation, Pertinant Lab Results, Outstanding Labs Recommendation: Barrier(s) to disposition, Recommendation based on pending studies, treatments, or consults S.B.A.RBang Report Given to: Dr. Blayne Addison Repor Time: 22:41 Attestation Statement - Attestation Attestation: I, Lul Crockett MD, personally performed a history and physical exam of the patient and discussed their management with the resident. I reviewed the resident's note and agree with the documented findings, medical decision making , and plan of care. Patient is a 36-year-old male with a history of schizophrenia who presents here from a local residential for altered mental status and weakness and anorexia. Father is present and states that patient was walking and talking and eating normally and acting normally until about 12 days ago when he developed a fever. He was seen here at that time. After being seen here he developed nausea and vomiting and diarrhea and continued fever and weakness. He was seen here again 9 days ago and admitted to the hospital. He was discharged from the hospital about 4 days ago and at that time transferred to an extended care facility. Father reports that ever since he was admitted to the hospital that he has been very weak and altered. Difficulty speaking and unable to walk. Father reports that they considered placing a feeding tube while he was in the hospital but then decided to send him to a residential. The altered mental status may be related to some of his psychiatric medications and these were adjusted. Father reports that since going to the residential he has gotten no better and seems to be getting worse. He is refusing meds and not eating or drinking. He is apparently also diagnosed with salmonella while in the hospital. On exam patient is a well-developed thin male who appears chronically ill. He is alert but unable to answer questions. He does follow some commands. He has a moderate tremor of the upper extremities which father reports is new. Breath sounds are equal bilaterally with some dependent rhonchi bilaterally. Heart regular rate and rhythm. Abdomen is soft with normal bowel sounds. No tympany or distention. No apparent tenderness. Chest x-ray negative. Head CT negative. Labs reviewed. WBC 20.9. Dr. Veloz discussed case with the hospitalist, Dr. Cisneros, and he accepted admission of the patient.
[2016-12-10 20:56] LABS: INR 1.5; Prothrombin Time 16.5 Seconds (9.4-12.1)
[2016-12-10 20:59] LABS: Activated Partial Thrombo Time 43.7 Seconds (26.0-36.0)
[2016-12-10 21:12] LABS: Bilirubin,Urine Negative (Negative); Blood,Urine Negative (Negative); Clarity,Urine Turbid (Clear); Color,Urine Dark Yellow (Yellow); Glucose,Urine (UA) Normal (Normal); Ketones,Urine Trace mg/dL (Negative); Leukocyte Esterase,Urine Negative (Negative); Nitrite,Urine Negative (Negative); PH,Urine 6.5 pH Units (5.0-8.0); Protein,Urine 30 mg/dL (Neg-Trace); Specific Gravity,Urine > 1.030 (1.010-1.025); Urobilinogen,Urine Normal (Normal)
[2016-12-10 21:14] LABS: Squamous Epithelial Cell,Urine Many per lpf (None-Few)
[2016-12-10 21:16] LABS: Amphetamine Screen,Urine Negative ng/mL (Cutoff=1000); Barbiturate Screen,Urine Negative ng/mL (Cutoff=200); Benzodiazepines Screen,Urine Negative ng/mL (Cutoff=200); Cannabinoid Screen,Urine Negative ng/mL (Cutoff = 50); Cocaine Screen,Urine Negative ng/mL (Cutoff= 300); Opiate Screen,Urine Negative ng/mL (Cutoff=300); Phencyclidine Screen,Urine Negative ng/mL (Cutoff=25)
[2016-12-10] MEDS ORDERED: Acetaminophen 650 MG RECTAL SUPP RC ONE (21:22)
[2016-12-10 21:24] LABS: Hematocrit 39.7 % (37.5-50.1); Hemoglobin 12.6 g/dL (12.9-16.9); Immature Platelets 1.4 % (1.1-6.1); Lymphocytes # 1.3 K/mcL (0.6-4.6); Mean Corpuscular HGB Conc 31.7 g/dL (31.6-35.5); Mean Corpuscular Hemoglobin 26.9 pg (28.0-33.3); Mean Corpuscular Volume 84.8 fL (83.0-100.0); Mean Platelet Volume 8.9 fL (9.4-12.4); Red Blood Count 4.68 M/mcL (4.19-5.50); Red Cell Distribution Width 15.8 % (11.5-14.5)
[2016-12-10 21:29] LABS: Bacteria,Urine Few per hpf (None-Few); RBC,Urine 0-3 per hpf (0-3)
[2016-12-10 22:04] LABS: Platelet Count 689 K/mcL (140-400)
[2016-12-10 22:06] LABS: Alanine Aminotransferase 75 Units/L (0-55); Albumin 2.9 g/dL (3.5-5.0); Albumin/Globulin Ratio 0.9 (1.1-2.2); Alkaline Phosphatase 101 Units/L (38-126); Aspartate Amino Transferase 69 Units/L (5-34); BUN/Creatinine Ratio 35 (6-26); Bilirubin,Direct 0.3 mg/dL (0.0-0.5); Bilirubin,Indirect 0.2 mg/dL (0.0-1.2); Bilirubin,Total 0.5 mg/dL (0.2-1.2); Calcium 8.2 mg/dL (8.6-10.8); Carbon Dioxide 21 mEq/L (19-29); Chloride 109 mEq/L (98-109); Globulin 3.1 g/dL (2.4-3.5); Glucose 123 mg/dL (70-99); Osmolality,Calculated 299 (280-300); Potassium 3.3 mEq/L (3.5-4.5); Sodium 141 mEq/L (136-145); eGFR For African Americans > 60 (> 60); eGFR For Non-African Americans > 60 (> 60)
[2016-12-10 22:07] LABS: Blood Urea Nitrogen 29 mg/dL (8-26); Ethanol < 10 mg/dL (0-10); Monocytes # 2.9 K/mcL (0.0-1.3); Neutrophils # 16.7 K/mcL (1.6-8.9); Platelet Estimate Marked Increase (Normal)
[2016-12-10 22:08] LABS: Toxic Granulation Present (Not Present)
[2016-12-10] MEDS ORDERED: 0.9 % Sodium Chloride 1,000 ML IVC ONE (22:18)
[2016-12-10] MEDS ORDERED: Levofloxacin 750 MG/150 ML 750 MG/150 ML BAG IVPB ONE (22:18)
[2016-12-10 22:43] LABS: Creatine Kinase 922 Units/L (30-200)
[2016-12-10 23:02] LABS: Valproate 24.28 mcg/mL (50-100)
[2016-12-11] MEDS ORDERED: DANTROLENE SODIUM IVP ONE (00:53)
[2016-12-11] MEDS ORDERED: WATER FOR INJ IVP ONE (00:53)
[2016-12-11] MEDS ORDERED: Potassium Chloride 40 MEQ, Lidocaine 1% 2 ML in D5% in Water 500 ML IVPB ONE (00:57)
[2016-12-11] MEDS ORDERED: Vancomycin 1,000 MG in D5% in Water 250 ML IVPB SCH (01:00)
[2016-12-11] MEDS ORDERED: WATER FOR INJ IVP STA (01:13)
[2016-12-11] MEDS ORDERED: DANTROLENE SODIUM IVP STA (01:13)
[2016-12-11] MEDS ORDERED: Ondansetron 4 MG/2 ML VIAL IVP PRN ×2 (01:18→02:40)
[2016-12-11] MEDS ORDERED: Naloxone 0.4 MG/ML INJ IVP PRN (01:18)
--- NOTE | 2016-12-11 01:39 | Internal Med History&Physical ---
<Shawn Herr - Last Filed: 12/11/16 02:23> Date of Encounter: 12/11/16 Time of Encounter: 00:30 Assessment and Plan (1) Fever Current visit: Yes Status: Acute Patient reportedly had fever of 104 and skilled nursing she resides, repeat temperature measurements at [facility] time showed a MAXIMUM TEMPERATURE of 100.1, although there are several possible concerns as to the root of his hypertension with everything going on. He was also noted to have tachycardia and leukocytosis of 20.9. This is concerning for possible sepsis. Patient had received 7-8 days of Cipro for Salmonella enteritis for which the last day of antibiotics was 12/09/69, there is the possibility that the Salmonella had not been fully eliminated prior to discontinuation antibiotics. There is also concern given his difficulty in swallowing that he may developed an aspiration pneumonia, though chest x-ray is not suggestive of this it is still a concern. It seems unlikely that he has a UTI given the patient's urine did not seem to suggest that. There was seemingly large amount of gas in the patient's stomach on chest x-ray and whether there is contribution from obstruction is uncertain. With the amount of psychiatric medications the patient is taking for schizophrenia and recent changes that have been made, there is concern that the patient developed a neuroleptic malignant syndrome versus serotonin syndrome. With his elevated CK suggesting rhabdo and presentation of the patient on exam and be more suspicious for NMS, with serotonin syndrome cannot be ruled out. Current concern for sepsis (enteritis, aspiration pneumonia, UTI) versus neuroleptic malignant syndrome versus serotonin syndrome. Normal saline at 250 mL an hour for 2 L Dantrolene single dose of 60 mg Vancomycin Zosyn 3.375 mg 3 times a day Levaquin 750 mg daily Tylenol 650 mg as needed We will place Saba and obtain core body temperatures Continuous telemetry monitoring given fluctuations and patient electrolytes Supplemental oxygen via nasal cannula as needed, wean as tolerated Nothing by mouth for now until full speech evaluation can take place We will obtain ammonia, magnesium, phosphorus We will obtain blood cultures, urine culture, sputum culture We will obtain CT chest, abdomen, and pelvis without contrast to evaluate for potential infection, versus obstruction Qualifiers: Fever type: unspecified Qualified Code(s): R50.9 - Fever, unspecified (2) Altered mental status Current visit: Yes Status: Acute Patient altered mental status likely multifactorial with recent changes in psychiatric medications, recent Salmonella enteritis, concern for aspiration, sepsis, dehydration, or neuroleptic malignant syndrome/serotonin syndrome. Plan as above Qualifiers: Altered mental status type: unspecified Qualified Code(s): R41.82 - Altered mental status, unspecified (3) Dehydration Current visit: No Status: Resolved Report a recent history of decreased by mouth at skilled nursing, increased skin turgor, dry mucous membranes, evidence of dehydration on blood chemistry. Plan as above (4) Schizophrenia Current visit: No Status: Chronic History of schizophrenia on numerous psychiatric medications. Recent changes to psych medications with hospitalization with discharge 12/05/16. [facility], unsure who his psychiatrist is at the moment. Family also states there is some confusion at the skilled nursing as to what psychiatric medications he was supposed to be on leading to possible incorrect dosing/ medications Will consider psychiatry evaluation when patient more stable Qualifiers: Schizophrenia type: unspecified Qualified Code(s): F20.9 - Schizophrenia, unspecified (5) DVT prophylaxis Current visit: No Status: Acute 5000 U heparin SQ TID Internal Medicine - H&P: HPI Chief complaint: Altered mental status Admitted From: Long-term Nursing Facility Plans for Post Hospital Care: [facility] History of present illness: Mr. Dash is a 36 year old male with prior medical history of schizophrenia, seizures, and GERD who was brought to [facility] this evening from the long-term facility which he has been residing because of fever and altered mental status. He had recently been discharged from [facility] on 12/05/16 after receiving treatment for salmonella enteritis. During this stay she appeared to have some altered mental status white count of his numerous psychiatric medications and had received for consultation from psychiatry at that time. He was recommended that he discontinue some of his medications including olanzapine, benztropine, Klonopin. He was found to be lithium toxic at that point and was recommended to hold his lithium. They also recommended decreasing his Depakote but continuing Haldol, Ativan, mesalamine. He is to contact patient's family, it is unclear what medications were continued or stopped at the skilled nursing at which he is residing. He had recently moved from [facility] with his father and grandmother, but have been moved to [place] while in place recently on account of being unable to care for further. At this point in time the patient had a job, was able to walk, conversant, and later relatively normal life. The last couple weeks since onset of salmonella, he has had a sharp decline in his mental faculties. In talking with the family present, is unclear who his psychiatrist is at the moment or from whom he received his previous psychiatric care. She was found seeking have altered mental status elevated temperature reportedly 104 and sent to [facility]. Prior to this it disappears patient was able take very much by mouth on account of aspiration risks and difficulty swallowing. According to the family, for several days his had only a couple mouthfuls of applesauce. In this time she has had mild improvements in his cognition and ability to speak and continues to be able to follow some commands. Past Med Surg Social Fam HX - Past Medical History Medical history: GERD Psychiatric history: schizophrenia - Social History Smoking Status: Current every day smoker Smokeless Tobacco Status: No Alcohol use: none Drug use: none - Family History Mother Adopted: No Family Member Ethnicity: Non- Living Status: Still Living Father Adopted: No Family Member Ethnicity: Non- Living Status: Still Living Hx Family Cardiac Disorders: Yes (heart stent) Hx Family Respiratory Disorders: Yes (copd) Hx Family Endocrine Disorder: Yes (diabetes) Internal Medicine - H&P: Meds Benztropine Mesylate 1 mg PO BID 12/01/16 [History] Divalproex (12 HR) [Depakote (12 HR)] 500 mg PO BID 12/01/16 [History] Divalproex (24 HR) [Depakote ER (24 HR)] 1,000 mg PO HS 12/01/16 [History] Mesalamine [Pentasa] 1,000 mg PO QID 12/01/16 [History] ClonazePAM [Klonopin] 0.5 mg PO TID 30 Days 12/05/16 [Rx] Haloperidol Lactate [Haldol] 5 mg IM Q4HR 30 Days 12/05/16 [Rx] Haloperidol [Haldol] 5 mg PO Q4HR 30 Days 12/05/16 [Rx] LORazepam [Ativan] 1 mg IM Q4HR PRN 30 Days 12/05/16 [Rx] Nicotine Patch [Nicoderm] 21 mg TD DAILY patch.td24 12/05/16 [Rx] Ciprofloxacin HCl [Cipro] 500 mg PO BID 12/10/16 [History] LORazepam [Ativan] 1 mg PO Q4HR 12/10/16 [History] Allergies milk Allergy (Verified 12/01/16 16:01) Diarrhea ROS unobtainable: due to mental status - Constitutional Vitals: Temp Pulse Resp BP Pulse Ox 98.3 F 102 18 135/85 97 12/11/16 00:02 12/11/16 00:02 12/11/16 00:02 12/11/16 00:02 12/11/16 00:02 General appearance: Present: A&O X 1, disheveled, mild distress, underweight, answers questions appropriately (The few questions he did answer) - Head Head exam: Present: atraumatic, normocephalic - Eye Eye exam: Present: PERRL, conjuntiva pink, sclera anicteric Pupils: Present: PERRL - ENT ENT exam: Present: mucous membranes dry, normal oropharynx - Neck Neck exam general surgery: Present: supple, trachea midline. Absent: lymphadenopathy, nuchal rigidity - Respiratory Respiratory exam: Present: CTAB. Absent: accessory muscle use, rales, rhonchi, wheezes - Cardiovascular Cardiovascular exam: Present: RRR, +S1, +S2. Absent: diastolic murmur, gallop, rubs, systolic murmur - GI/Abdominal GI/Abdominal exam: Present: normal bowel sounds, soft, no peritoneal signs. Absent: distended, tenderness - Extremities Exam Extremities exam: Present: warm, radial pulses palpable and symetrical. Absent : calf tenderness, cyanotic, pedal edema Additional comments: Patient appears slightly rigid, there is extremity spontaneously, rigidity noticed movement of patient head - Neurological Exam Neurological exam: Present: alert, altered, no focal deficits, speech deficit. Absent: oriented X3, facial droop - Psychiatric Psychiatric exam: Present: agitated, anxious - Skin Skin exam: Present: dry, intact, warm Internal Med - H&P Results - Labs CBC & Chem 7: 12/10/16 21:16 12/10/16 21:16 - Impressions ITS Impressions KUB X-Ray 12/11/16 00:48 IMPRESSION: Nonspecific bowel gas pattern with gaseous distention of the colon. No evidence of bowel obstruction. D/ / Trey Beltran MD / Trey Beltran MD Interpreting Provider: Trey Beltran MD <Devyn Gill - Last Filed: 12/11/16 03:56> Assessment and Plan (1) NMS (neuroleptic malignant syndrome) Current visit: Yes Status: Acute . (2) Toxic metabolic encephalopathy Current visit: Yes Status: Acute . (3) Encephalopathy chronic Current visit: Yes Status: Chronic . (4) Psychotropic agent causing adverse effect in therapeutic use Current visit: Yes Status: Acute . Qualifiers: Encounter type: subsequent encounter Qualified Code(s): T43.95XD - Adverse effect of unspecified psychotropic drug, subsequent encounter (5) SIRS with acute organ dysfunction due to infectious process Current visit: Yes Status: Acute . (6) Sepsis Current visit: Yes Status: Acute . Qualifiers: Sepsis type: sepsis due to unspecified organism Qualified Code(s): A41.9 - Sepsis, unspecified organism (7) Malignant hyperthermia Current visit: Yes Status: Acute . Qualifiers: Encounter type: initial encounter Qualified Code(s): T88.3XXA - Malignant hyperthermia due to anesthesia, initial encounter (8) At risk for abnormal gastrointestinal motility Current visit: Yes Status: Chronic . (9) At risk for acid-base imbalance Current visit: Yes Status: Acute . (10) At risk for activity intolerance Current visit: Yes Status: Chronic . (11) At risk for acute confusion Current visit: Yes Status: Chronic . (12) At risk for acute ischemic cardiac event Current visit: Yes Status: Acute . (13) At risk for adverse drug event Current visit: Yes Status: Chronic . (14) Cachexia Current visit: Yes Status: Chronic . (15) Hypoalbuminemia due to protein-calorie malnutrition Current visit: Yes Status: Chronic . (16) Dysphagia Current visit: Yes Status: Chronic . Qualifiers: Dysphagia type: pharyngeal phase Qualified Code(s): R13.13 - Dysphagia, pharyngeal phase (17) Enterocolitis Current visit: Yes Status: Acute . (18) Schizophrenia Current visit: Yes Status: Chronic Qualifiers: Schizophrenia type: unspecified Qualified Code(s): F20.9 - Schizophrenia, unspecified (19) Tobacco abuse Current visit: Yes Status: Chronic . (20) Acute kidney injury Current visit: Yes Status: Acute . (21) Dehydration Current visit: Yes Status: Acute (22) Hypokalemia Current visit: Yes Status: Acute . Internal Medicine - H&P: HPI History of present illness: Mr. Dash is a 36 year old male admitted to [facility] via the emergency department arrived via EMS services from local skilled nursing where he lives in long-term care sign met with reports of alteration in mental status, high fevers up to 104 degrees Fahrenheit and refusal to take scheduled medications and nutrition. His found upon arrival to be in the history and the circumstances and events being nonverbal. Intermittent moaning articulations. Rigid posturing. And tremulousness. Patient was visited and interviewed and examined. Patient presents acutely encephalopathic. Delirious. Incoherent. The patient presents with significant chronic comorbidities which include bipolar/schizophrenia/ schizoaffective disorder, PUD, short bowel syndrome/IBD and dysphagia. Significant history of polypharmacy and chronic treatment with multiple psychotropic medications x years. I examined this patient and my medical decision-making was reviewed with the Resident Physician. For this encounter, I have reviewed the documentation, treatment plan, and medical decision making. I agree with the documented findings, disposition and treatment plan as described except to the extent set forth below. Cumulative laboratory and radiographic database was reviewed, considered and discussed. Recent hospitalization complicated by infective enterocolitis with bandemia due to Shigella infection. Acute kidney injury related to gastrointestinal losses, poor oral intake as well as lithium and Depakote toxicity and severe dehydration was noted. Hyponatremia/hypochloremia related to GI losses lithium toxicity also contributed to the severe Acute encephalopathy. Although the patient received treatment for his Shigella enterocolitis the degree of metabolic and acid-base derangements experienced had not yet fully resolved. Due to his toxicity from his prescribed psychotropics as well as anticonvulsants primarily dosed as mood stabilizers were recommended to be withdrawn by consultants in neurology and psychiatry. As a consequence of this withdrawal and introduction of alternative psychotropic and benzodiazepine therapies continued control of anticonvulsant /mood stabilizing agents. The patient presents with current symptoms worrisome for malignant hyperthermia/ neuroleptic malignant syndrome. Systemic inflammatory response syndrome criteria and sepsis criteria are present at the time of admission. Concern for smoldering infective enterocolitis and/or hospital associated infection is high in presenting differential. Given the patient's presenting concerns, past medical history, clinical findings and symptoms, he is admitted at this time to undergo further evaluation and disposition. Past Med Surg Social Fam HX - Past Medical History Source: old records reviewed Medical history: GERD, seizures, other Psychiatric history: anxiety, bipolar, depression, previous psychiatric hospitalization, other - Past Surgical History Surgical History: colectomy, other All Systems PM: A 10-system review of systems was performed and is negative for pertinent findings except as documented above in the HPI. - Constitutional Vitals: Temp Pulse Resp BP Pulse Ox 98.1 F 83 17 129/93 97 12/11/16 02:08 12/11/16 02:08 12/11/16 02:08 12/11/16 02:08 12/11/16 02:08 Internal Med - H&P Results - Labs CBC & Chem 7: 12/10/16 21:16 12/10/16 21:16 Labs: Vital Signs Temp Pulse Resp BP Pulse Ox 12/11/16 02:08 98.1 F 83 17 129/93 97 12/11/16 00:02 98.3 F 102 18 135/85 97 12/10/16 23:33 99.6 F 18 130/105 12/10/16 22:50 114 18 127/81 95 12/10/16 21:21 100.1 F H 116 18 137/94 94 L 12/10/16 20:53 107 18 123/89 95 12/10/16 19:53 98.3 F 113 20 124/97 96 Intake and Output 12/10/16 12/10/16 12/11/16 15:59 23:59 07:59 Intake Total 0 / 0 Balance 0 / 0 Intake: Oral 0 / 0 Other: # Voids 0 Weight 68.039 kg 61.1 kg Blood Glucose* 127 Patient Weight 12/11/16 23:59 Weight 61.1 kg Short CBC 12/10/16 Range/Units 21:16 WBC 20.9 H D (4.3-11.1) K/mcL Hgb 12.6 L D (12.9-16.9) g/dL Hct 39.7 (37.5-50.1) % Plt Count 689 H D (140-400) K/mcL Neutrophils # 16.7 H (1.6-8.9) K/mcL BMP 12/10/16 Range/Units 21:16 Sodium 141 (136-145) mEq/L Potassium 3.3 L (3.5-4.5) mEq/L Chloride 109 (98-109) mEq/L Carbon Dioxide 21 (19-29) mEq/L BUN 29 H (8-26) mg/dL Creatinine 0.84 (0.72-1.25) mg/dL Glucose 123 H (70-99) mg/dL Calcium 8.2 L (8.6-10.8) mg/dL Cardiac Enzymes 12/10/16 Range/Units 21:16 Troponin I 0.00 (0-0.03) ng/mL Liver Function 12/10/16 Range/Units 21:16 Total Bilirubin 0.5 (0.2-1.2) mg/dL Direct Bilirubin 0.3 (0.0-0.5) mg/dL AST 69 H (5-34) Units/L ALT 75 H (0-55) Units/L Alkaline Phosphatase 101 (38-126) Units/L Albumin 2.9 L (3.5-5.0) g/dL Urine 12/10/16 Range/Units 21:04 Urine Color Dark Yellow (Yellow) Urine Clarity Turbid A (Clear) Urine pH 6.5 (5.0-8.0) pH Units Ur Specific [place] > 1.030 H (1.010-1.025) Urine Protein 30 H (Neg-Trace) mg/dL Urine Glucose (UA) Normal (Normal) mg/dL Abnormal lab results WBC 20.9 K/mcL (4.3-11.1) H D 12/10/16 21:16 Hgb 12.6 g/dL (12.9-16.9) L D 12/10/16 21:16 MCH 26.9 pg (28.0-33.3) L 12/10/16 21:16 RDW 15.8 % (11.5-14.5) H 12/10/16 21:16 Plt Count 689 K/mcL (140-400) H D 12/10/16 21:16 MPV 8.9 fL (9.4-12.4) L 12/10/16 21:16 Neutrophils # 16.7 K/mcL (1.6-8.9) H 12/10/16 21:16 Monocytes # 2.9 K/mcL (0.0-1.3) H 12/10/16 21:16 Toxic Granulation Present (Not Present) A 12/10/16 21:16 Platelet Estimate Marked Increase (Normal) H 12/10/16 21:16 PT 16.5 Seconds (9.4-12.1) H 12/10/16 20:40 APTT 43.7 Seconds (26.0-36.0) H 12/10/16 20:40 Potassium 3.3 mEq/L (3.5-4.5) L 12/10/16 21:16 BUN 29 mg/dL (8-26) H 12/10/16 21:16 BUN/Creatinine Ratio 35 (6-26) H 12/10/16 21:16 Glucose 123 mg/dL (70-99) H 12/10/16 21:16 POC Glucose 127 (58-89) H 12/10/16 20:48 Calcium 8.2 mg/dL (8.6-10.8) L 12/10/16 21:16 AST 69 Units/L (5-34) H 12/10/16 21:16 ALT 75 Units/L (0-55) H 12/10/16 21:16 Creatine Kinase 922 Units/L (30-200) H 12/10/16 21:16 Albumin 2.9 g/dL (3.5-5.0) L 12/10/16 21:16 Albumin/Globulin Ratio 0.9 (1.1-2.2) L 12/10/16 21:16 Urine Clarity Turbid (Clear) A 12/10/16 21:04 Ur Specific [place] > 1.030 (1.010-1.025) H 12/10/16 21:04 Urine Protein 30 mg/dL (Neg-Trace) H 12/10/16 21:04 Urine Ketones Trace mg/dL (Negative) H 12/10/16 21:04 Urine Microscopic WBC 5-15 per hpf (0-3) H 12/10/16 21:04 Ur Squamous Epith Cells Many per lpf (None-Few) H 12/10/16 21:04 Ur Culture Indicated? YES (NO) A 12/10/16 21:04 Valproic Acid 24.28 mcg/mL (50-100) L 12/10/16 21:16 - Impressions ITS Impressions KUB X-Ray 12/11/16 00:48 IMPRESSION: Nonspecific bowel gas pattern with gaseous distention of the colon. No evidence of bowel obstruction. D/ / Trey Beltran MD / Trey Beltran MD Interpreting Provider: Trey Beltran MD Abdomen/Pelvis CT 12/11/16 00:49 IMPRESSION: 1. No significant findings in the chest. 2. Distended colon diffusely with mixed stool and air. No associated mucosal thickening representing improvement from prior exam. Overall pattern may represent persistent colitis or constipation. D/ / Trey Beltran MD / Trey Beltran MD Interpreting Provider: Trey Beltran MD Chest CT 12/11/16 00:49 IMPRESSION: 1. No significant findings in the chest. 2. Distended colon diffusely with mixed stool and air. No associated mucosal thickening representing improvement from prior exam. Overall pattern may represent persistent colitis or constipation. D/ / Trey Beltran MD / Trey Beltran MD Interpreting Provider: Trey Beltran MD Laboratory Last Values WBC 20.9 K/mcL (4.3-11.1) H D 12/10/16 21:16 RBC 4.68 M/mcL (4.19-5.50) 12/10/16 21:16 Hgb 12.6 g/dL (12.9-16.9) L D 12/10/16 21:16 Hct 39.7 % (37.5-50.1) 12/10/16 21:16 MCV 84.8 fL (83.0-100.0) 12/10/16 21:16 MCH 26.9 pg (28.0-33.3) L 12/10/16 21:16 MCHC 31.7 g/dL (31.6-35.5) 12/10/16 21:16 RDW 15.8 % (11.5-14.5) H 12/10/16 21:16 Plt Count 689 K/mcL (140-400) H D 12/10/16 21:16 MPV 8.9 fL (9.4-12.4) L 12/10/16 21:16 Seg Neutrophils % 78.0 % 12/10/16 21:16 Band Neutrophils % 2.0 % (0-4) 12/10/16 21:16 Lymphocytes % 6.0 % 12/10/16 21:16 Monocytes % 14.0 % 12/10/16 21:16 Neutrophils # 16.7 K/mcL (1.6-8.9) H 12/10/16 21:16 Lymphocytes # 1.3 K/mcL (0.6-4.6) 12/10/16 21:16 Monocytes # 2.9 K/mcL (0.0-1.3) H 12/10/16 21:16 Toxic Granulation Present (Not Present) A 12/10/16 21:16 Platelet Estimate Marked Increase (Normal) H 12/10/16 21:16 Immature Plt Fraction 1.4 % (1.1-6.1) 12/10/16 21:16 PT 16.5 Seconds (9.4-12.1) H 12/10/16 20:40 INR 1.5 12/10/16 20:40 APTT 43.7 Seconds (26.0-36.0) H 12/10/16 20:40 Sodium 141 mEq/L (136-145) 12/10/16 21:16 Potassium 3.3 mEq/L (3.5-4.5) L 12/10/16 21:16 Chloride 109 mEq/L (98-109) 12/10/16 21:16 Carbon Dioxide 21 mEq/L (19-29) 12/10/16 21:16 BUN 29 mg/dL (8-26) H 12/10/16 21:16 Creatinine 0.84 mg/dL (0.72-1.25) 12/10/16 21:16 Est GFR ( Amer) > 60 (> 60) 12/10/16 21:16 Est GFR (Non-Af Amer) > 60 (> 60) 12/10/16 21:16 BUN/Creatinine Ratio 35 (6-26) H 12/10/16 21:16 Glucose 123 mg/dL (70-99) H 12/10/16 21:16 POC Glucose 127 (58-89) H 12/10/16 20:48 Calculated Osmolality 299 (280-300) 12/10/16 21:16 Calcium 8.2 mg/dL (8.6-10.8) L 12/10/16 21:16 Total Bilirubin 0.5 mg/dL (0.2-1.2) 12/10/16 21:16 Direct Bilirubin 0.3 mg/dL (0.0-0.5) 12/10/16 21:16 Indirect Bilirubin 0.2 mg/dL (0.0-1.2) 12/10/16 21:16 AST 69 Units/L (5-34) H 12/10/16 21:16 ALT 75 Units/L (0-55) H 12/10/16 21:16 Alkaline Phosphatase 101 Units/L (38-126) 12/10/16 21:16 Creatine Kinase 922 Units/L (30-200) H 12/10/16 21:16 Troponin I 0.00 ng/mL (0-0.03) 12/10/16 21:16 Serum Total Protein 6.0 g/dL (6.0-8.3) 12/10/16 21:16 Albumin 2.9 g/dL (3.5-5.0) L 12/10/16 21:16 Globulin 3.1 g/dL (2.4-3.5) 12/10/16 21:16 Albumin/Globulin Ratio 0.9 (1.1-2.2) L 12/10/16 21:16 Urine Color Dark Yellow (Yellow) 12/10/16 21:04 Urine Clarity Turbid (Clear) A 12/10/16 21:04 Urine pH 6.5 pH Units (5.0-8.0) 12/10/16 21:04 Ur Specific [place] > 1.030 (1.010-1.025) H 12/10/16 21:04 Urine Protein 30 mg/dL (Neg-Trace) H 12/10/16 21:04 Urine Glucose (UA) Normal mg/dL (Normal) 12/10/16 21:04 Urine Ketones Trace mg/dL (Negative) H 12/10/16 21:04 Urine Blood Negative (Negative) 12/10/16 21:04 Urine Nitrite Negative (Negative) 12/10/16 21:04 Urine Bilirubin Negative (Negative) 12/10/16 21:04 Urine Urobilinogen Normal mg/dL (Normal) 12/10/16 21:04 Ur Leukocyte Esterase Negative (Negative) 12/10/16 21:04 Urine Microscopic RBC 0-3 per hpf (0-3) 12/10/16 21:04 Urine Microscopic WBC 5-15 per hpf (0-3) H 12/10/16 21:04 Ur Squamous Epith Cells Many per lpf (None-Few) H 12/10/16 21:04 Randall Biurate Crystals Present 12/10/16 21:04 Urine Bacteria Few per hpf (None-Few) 12/10/16 21:04 Hyaline Casts Test Not Performed 12/10/16 21:04 Ur Culture Indicated? YES (NO) A 12/10/16 21:04 Urine Opiates Screen Negative ng/mL (Pygvcp=370) 12/10/16 21:04 Ur Barbiturates Screen Negative ng/mL (Wgkwzb=310) 12/10/16 21:04 Valproic Acid 24.28 mcg/mL (50-100) L 12/10/16 21:16 Ur Phencyclidine Scrn Negative ng/mL (Cutoff=25) 12/10/16 21:04 Ur Amphetamines Screen Negative ng/mL (Gqezgn=3297) 12/10/16 21:04 U Benzodiazepines Scrn Negative ng/mL (Hsvgbm=643) 12/10/16 21:04 [place] 0.6 mEq/L (0.6-1.2) 12/10/16 20:40 Urine Cocaine Screen Negative ng/mL (Cutoff= 300) 12/10/16 21:04 U Marijuana (THC) Screen Negative ng/mL (Cutoff = 50) 12/10/16 21:04 Ethyl Alcohol < 10 mg/dL (0-10) 12/10/16 21:16 Specimen Rejected Miscellaneous 12/10/16 21:05 - Attending Attestation My signature below is to certify that this patient is under my care and that I, or the Resident working with me, has had a [id number] encounter with this patient. Plan of care has been reviewed and discussed in detail with patient's family. Questions addressed. Advance care directive discussions previously addressed. Patient does not possess any healthcare restrictions at this time. Outpatient medications schedules will be reviewed, confirmed then facilitated as appropriate. Reconciliation treatments including adjustments, substitutions and reintroduction into the treatment regimen as necessary maintenance therapies for chronic pre-existing medical conditions. Hospital course dictated by clinical findings, treatment response and potential consultative interventions. The patient is at high risk for acute clinical decline and morbidity given this presenting complaint, ALT and associated comorbidities. Condition is serious. Prognosis is guarded. CODE STATUS was reported as normal.
[2016-12-11] MEDS: 0.9 % Sodium Chloride 1,000 ML IVC SCH ×2 (02:23→08:17)
[2016-12-11] MEDS ORDERED: *HR* Morphine 2 MG/ML SYRINGE IVP PRN (02:40)
[2016-12-11] MEDS ORDERED: Acetaminophen 325 MG TABLET PO PRN (02:40)
[2016-12-11] MEDS ORDERED: *HR* OxyCODONE Immed Rel 5 MG TABLET PO PRN (02:40)
[2016-12-11] MEDS: Vancomycin 1,250 MG in D5% in Water 250 ML IVPB SCH ×2 (02:41→16:23)
[2016-12-11] MEDS ORDERED: Acetaminophen 650 MG RECTAL SUPP RC PRN (02:51)
[2016-12-11 04:20] LABS: Basophils # 0.1 K/mcL (0.0-0.2); Basophils % 0.4 %; Eosinophils % 0.1 %; Hematocrit 32.7 % (37.5-50.1); Hemoglobin 10.2 g/dL (12.9-16.9); Lymphocytes # 0.9 K/mcL (0.6-4.6); Lymphocytes % 6.7 %; Mean Corpuscular HGB Conc 31.2 g/dL (31.6-35.5); Mean Corpuscular Hemoglobin 26.8 pg (28.0-33.3); Mean Corpuscular Volume 86.1 fL (83.0-100.0); Mean Platelet Volume 8.7 fL (9.4-12.4); Monocytes # 1.7 K/mcL (0.0-1.3); Monocytes % 12.7 %; Neutrophils # 10.2 K/mcL (1.6-8.9); Platelet Count 410 K/mcL (140-400); Red Cell Distribution Width 15.6 % (11.5-14.5); Segmented Neutrophils % 75.1 %
[2016-12-11 04:29] LABS: INR 1.7; Prothrombin Time 18.5 Seconds (9.4-12.1)
[2016-12-11 04:32] LABS: Activated Partial Thrombo Time 41.7 Seconds (26.0-36.0); Magnesium 1.9 mg/dL (1.6-2.6); Phosphorous 2.8 mg/dL (2.3-4.7)
[2016-12-11 04:35] LABS: Alanine Aminotransferase 65 Units/L (0-55); Albumin 2.5 g/dL (3.5-5.0); Albumin/Globulin Ratio 1.1 (1.1-2.2); Alkaline Phosphatase 75 Units/L (38-126); Aspartate Amino Transferase 63 Units/L (5-34); BUN/Creatinine Ratio 30 (6-26); Bilirubin,Total 0.5 mg/dL (0.2-1.2); Blood Urea Nitrogen 24 mg/dL (8-26); Calcium 7.7 mg/dL (8.6-10.8); Carbon Dioxide 25 mEq/L (19-29); Chloride 112 mEq/L (98-109); Globulin 2.2 g/dL (2.4-3.5); Glucose 153 mg/dL (70-99); Osmolality,Calculated 299 (280-300); Phosphorous 2.8 mg/dL (2.3-4.7); Potassium 3.6 mEq/L (3.5-4.5); Sodium 141 mEq/L (136-145); eGFR For African Americans > 60 (> 60); eGFR For Non-African Americans > 60 (> 60)
[2016-12-11 04:36] LABS: Alanine Aminotransferase 64 Units/L (0-55); Albumin 2.4 g/dL (3.5-5.0); Alkaline Phosphatase 77 Units/L (38-126); Aspartate Amino Transferase 64 Units/L (5-34); BUN/Creatinine Ratio 31 (6-26); Bilirubin,Direct 0.2 mg/dL (0.0-0.5); Bilirubin,Indirect 0.2 mg/dL (0.0-1.2); Bilirubin,Total 0.4 mg/dL (0.2-1.2); Blood Urea Nitrogen 24 mg/dL (8-26); Calcium 7.4 mg/dL (8.6-10.8); Carbon Dioxide 23 mEq/L (19-29); Chloride 111 mEq/L (98-109); Globulin 2.4 g/dL (2.4-3.5); Glucose 152 mg/dL (70-99); Osmolality,Calculated 299 (280-300); Potassium 3.6 mEq/L (3.5-4.5); Sodium 141 mEq/L (136-145); Total Protein 4.7 g/dL (6.0-8.3); Total Protein 4.8 g/dL (6.0-8.3); eGFR For African Americans > 60 (> 60); eGFR For Non-African Americans > 60 (> 60)
[2016-12-11 04:55] LABS: Prolactin 29.62 ng/mL (3.46-19.40)
[2016-12-11 04:58] LABS: Thyroid Stimulating Hormone 0.863 mcIU/mL (0.350-4.840)
[2016-12-11] MEDS ORDERED: DANTROLENE SODIUM IVPB SCH (06:00)
[2016-12-11] MEDS ORDERED: WATER FOR INJ IVPB SCH (06:00)
[2016-12-11] MEDS: *HR* Heparin 5,000 UNIT/ML VIAL SQ SCH ×3 (06:09→22:01)
[2016-12-11] MEDS ORDERED: 0.9 % Sodium Chloride 1,000 ML IVC SCH (08:00)
[2016-12-11] MEDS: Pantoprazole 40 MG VIAL IVP SCH (08:14)
[2016-12-11] MEDS: Piperacillin/Tazobactam 3.375 GM in D5% in Water (Mini-Bag+) 100 ML IVPB SCH ×2 (08:14→16:24)
--- NOTE | 2016-12-11 08:19 | Event Note ---
Date of Encounter: 12/11/16 Time of Encounter: 08:17 36-year-old male with significant psychiatric history including schizophrenia, with recent hospital admission for salmonella enteritis, [facility] for evaluation of fevers, altered mental status, rigidity. Patient seen and examined at bedside. Awake with Eyes open but no meaningful communication, aphasic, cannot follow commands. Chest-S1, S2 heard. Lungs are clear to auscultation. Abdomen is soft and nondistended Extremities-bilateral rigidity noted with intermittent resting hand tremors. Labs reviewed-significant for leukocytosis and thrombocytosis with no bands, improving today. Elevated creatinine kinase in 1900s and elevated serum prolactin. Mild coagulopathy noted with INR 1.7 along with mild elevation in AST and ALT. Urine dipstick suggestive of infection. Chest x-ray shows clear lung lakhani. CT abdomen/pelvis shows no evidence of acute colitis or bowel obstruction. Possible neuroleptic malignant syndrome- given his fever, acutely altered mental status, leukocytosis, elevated liver enzymes, elevated serum creatinine kinase. Patient noted to have been discharged on when necessary Haldol and Ativan along with a lowered dose of Depakote. He has been on olanzapine, clonazepam, benztropine and lithium prior to his recent admission. Continue aggressive IV hydration and monitor urine output closely. At risk for renal failure from rhabdomyolysis. When necessary dantrolene. Monitor and supplement electrolytes as needed. We will consult neurology. Supportive care. Consider sepsis from likely UTI, although less likely- has been started on broad -spectrum IV antibiotics, continue for now. Follow blood and urine cultures.
--- NOTE | 2016-12-11 08:54 | Internal Med History&Physical ---
Date of Encounter: 12/11/16 Time of Encounter: 08:50 Internal Medicine - H&P: HPI Chief complaint: fever, altered mental status Admitted From: Long-term Nursing Facility Plans for Post Hospital Care: Transfer Intermediate Care History of present illness: Mr. Dash is a 36 year old male who presents from [facility] with fever and altered mental status. He is non-verbal and does not make any purposeful movements at this time, however family had just arrived at bedside. They state that roughly 2 weeks ago he was completely normal and able to "walk and talk". He was admitted her last week for nausea and vomiting and was found to have Salmonella poisoning and received a full course of Cipro. According to the documents, he had a fever of 104 at that time and family states he runs that high at the intermediate over the past week and they claim he has been rigid and developed a tremor yesterday. He has a history of schizophrenia and recently had his medications adjusted by inpatient psychiatry and has been taking Haldol as needed for agitation and family believes he was receiving it at the intermediate. Past Med Surg Social Fam HX - Past Medical History Medical history: GERD, seizures, other Psychiatric history: anxiety, bipolar, depression, previous psychiatric hospitalization, other - Past Surgical History Surgical History: colectomy, other - Social History Smoking Status: Current every day smoker Smokeless Tobacco Status: No Alcohol use: none Drug use: none - Family History Mother Adopted: No Family Member Ethnicity: Non- Living Status: Still Living Father Adopted: No Family Member Ethnicity: Non- Living Status: Still Living Hx Family Cardiac Disorders: Yes (heart stent) Hx Family Respiratory Disorders: Yes (copd) Hx Family Endocrine Disorder: Yes (diabetes) Internal Medicine - H&P: Meds Benztropine Mesylate 1 mg PO BID 12/01/16 [History] Divalproex (12 HR) [Depakote (12 HR)] 500 mg PO BID 12/01/16 [History] Divalproex (24 HR) [Depakote ER (24 HR)] 1,000 mg PO HS 12/01/16 [History] Mesalamine [Pentasa] 1,000 mg PO QID 12/01/16 [History] ClonazePAM [Klonopin] 0.5 mg PO TID 30 Days 12/05/16 [Rx] Haloperidol Lactate [Haldol] 5 mg IM Q4HR 30 Days 12/05/16 [Rx] Haloperidol [Haldol] 5 mg PO Q4HR 30 Days 12/05/16 [Rx] LORazepam [Ativan] 1 mg IM Q4HR PRN 30 Days 12/05/16 [Rx] Nicotine Patch [Nicoderm] 21 mg TD DAILY patch.td24 12/05/16 [Rx] Ciprofloxacin HCl [Cipro] 500 mg PO BID 12/10/16 [History] LORazepam [Ativan] 1 mg PO Q4HR 12/10/16 [History] Allergies milk Allergy (Verified 12/01/16 16:01) Diarrhea ROS unobtainable: due to mental status All Systems PM: A 10-system review of systems was performed and is negative for pertinent findings except as documented above in the HPI. - Constitutional Vitals: Temp Pulse Resp BP Pulse Ox 98.1 F 75 17 129/93 97 12/11/16 02:08 12/11/16 02:45 12/11/16 02:08 12/11/16 02:08 12/11/16 02:08 General appearance: Present: A&O X 0, disheveled, underweight. Absent: answers questions appropriately (non-verbal) - Head Head exam: Present: atraumatic, normocephalic Internal Med - H&P Results - Labs CBC & Chem 7: 12/11/16 04:10 12/11/16 04:10 Labs: Short CBC 12/11/16 Range/Units 04:10 WBC 13.5 H (4.3-11.1) K/mcL Hgb 10.2 L D (12.9-16.9) g/dL Hct 32.7 L (37.5-50.1) % Plt Count 410 H (140-400) K/mcL Neutrophils # 10.2 H (1.6-8.9) K/mcL BMP 12/11/16 12/11/16 04:10 04:10 Sodium 141 141 Potassium 3.6 3.6 Chloride 111 H 112 H Carbon Dioxide 23 25 BUN 24 24 Creatinine 0.77 0.80 Glucose 152 H 153 H Calcium 7.4 L 7.7 L Cardiac Enzymes 12/11/16 Range/Units 04:10 Troponin I 0.00 (0-0.03) ng/mL Liver Function 12/11/16 12/11/16 Range/Units 04:10 04:10 Total Bilirubin 0.4 0.5 (0.2-1.2) mg/dL Direct Bilirubin 0.2 (0.0-0.5) mg/dL AST 64 H 63 H (5-34) Units/L ALT 64 H 65 H (0-55) Units/L Alkaline Phosphatase 77 75 (38-126) Units/L Albumin 2.4 L 2.5 L (3.5-5.0) g/dL - Impressions ITS Impressions KUB X-Ray 12/11/16 00:48 IMPRESSION: Nonspecific bowel gas pattern with gaseous distention of the colon. No evidence of bowel obstruction. D/ / Trey Beltran MD / Trey Beltran MD Interpreting Provider: Trey Beltran MD Abdomen/Pelvis CT 12/11/16 00:49 IMPRESSION: 1. No significant findings in the chest. 2. Distended colon diffusely with mixed stool and air. No associated mucosal thickening representing improvement from prior exam. Overall pattern may represent persistent colitis or constipation. D/ / Trey Beltran MD / Trey Beltran MD Interpreting Provider: Trey Beltran MD Chest CT 12/11/16 00:49
--- NOTE | 2016-12-11 08:58 | Neurology - Consult Note ---
<Narayan Lange - Last Filed: 12/11/16 11:35> Date of Encounter: 12/11/16 Time of Encounter: 08:57 Assessment and Plan (1) NMS (neuroleptic malignant syndrome) Current Visit: Yes Status: Suspected This is suspected as he has been on Haldol, had a fever of 104 at ID, had elevated CK, and was initially rigid upon presentation Cannot rule out catatonic schizophrenia vs. epilepsy vs. serotonin syndrome He did receive Dantrolene and he is only mildly rigid on exam; will defer to primary team if further doses required Recommend continuing to hold Haldol and obtain psychiatry consult B12/folate collected last week WNL, TSH and ammonia WNL this visit Obtain MRI brain without contrast and EEG for further evaluation History of Present Illness Chief complaint: altered mental status, fever HPI: Mr. Dash is a 36 year old male who presents from [facility] with fever and altered mental status. He is non-verbal and does not make any purposeful movements at this time, however family had just arrived at bedside. They state that roughly 2 weeks ago he was completely normal and able to "walk and talk". He was admitted here last week for nausea and vomiting and was found to have Salmonella poisoning and received a full course of Cipro. According to the documents, he had a fever of 104 during the last admission. Family states he runs similar temperatures at the [facility] over the past week and they claim he has been rigid and developed a tremor yesterday. He has a history of schizophrenia and last week had his medications adjusted by inpatient psychiatry. He has been taking Haldol as needed for agitation which family believes he was continuing to receive at the [facility]. Past Med Surg Social Fam HX - Past Medical History Medical history: GERD, seizures, other Psychiatric history: anxiety, bipolar, depression, previous psychiatric hospitalization, other - Past Surgical History Surgical History: colectomy, other - Social History Smoking Status: Current every day smoker Smokeless Tobacco Status: No Alcohol use: none Drug use: none - Family History Mother Adopted: No Family Member Ethnicity: Non- Living Status: Still Living Father Adopted: No Family Member Ethnicity: Non- Living Status: Still Living Hx Family Cardiac Disorders: Yes (heart stent) Hx Family Respiratory Disorders: Yes (copd) Hx Family Endocrine Disorder: Yes (diabetes) Medications and Allergies Benztropine Mesylate 1 mg PO BID 12/01/16 [History] Divalproex (12 HR) [Depakote (12 HR)] 500 mg PO BID 12/01/16 [History] Divalproex (24 HR) [Depakote ER (24 HR)] 1,000 mg PO HS 12/01/16 [History] Mesalamine [Pentasa] 1,000 mg PO QID 12/01/16 [History] ClonazePAM [Klonopin] 0.5 mg PO TID 30 Days 12/05/16 [Rx] Haloperidol Lactate [Haldol] 5 mg IM Q4HR 30 Days 12/05/16 [Rx] Haloperidol [Haldol] 5 mg PO Q4HR 30 Days 12/05/16 [Rx] LORazepam [Ativan] 1 mg IM Q4HR PRN 30 Days 12/05/16 [Rx] Nicotine Patch [Nicoderm] 21 mg TD DAILY patch.td24 12/05/16 [Rx] Ciprofloxacin HCl [Cipro] 500 mg PO BID 12/10/16 [History] LORazepam [Ativan] 1 mg PO Q4HR 12/10/16 [History] Allergies milk Allergy (Verified 12/01/16 16:01) Diarrhea ROS unobtainable: due to mental status All Systems: A 10-system review of systems was performed and is negative for pertinent findings except as documented above in the HPI. Physical Examination - Vital Signs Vital Signs: Initial Vital Signs Temp Pulse Resp BP Pulse Ox 98.3 F 113 20 124/97 96 12/10/16 19:53 12/10/16 19:53 12/10/16 19:53 12/10/16 19:53 12/10/16 19:53 - Constitutional General appearance: chronically ill (non-verbal, does not make purposeful movements) - Neurologic Sensorimotor examination: other (unable to assess) Detailed motor examination: other (unable to assess) Detailed sensory examination: other (unable to assess) Mental Status Examination: awake, does not follow commands Cranial nerve examination: PERRL Results - Laboratory Findings CBC and BMP: 12/11/16 04:10 12/11/16 04:10 Abnormal lab findings: Abnormal lab results WBC 13.5 K/mcL (4.3-11.1) H 12/11/16 04:10 RBC 3.80 M/mcL (4.19-5.50) L 12/11/16 04:10 Hgb 10.2 g/dL (12.9-16.9) L D 12/11/16 04:10 Hct 32.7 % (37.5-50.1) L 12/11/16 04:10 MCH 26.8 pg (28.0-33.3) L 12/11/16 04:10 MCHC 31.2 g/dL (31.6-35.5) L 12/11/16 04:10 RDW 15.6 % (11.5-14.5) H 12/11/16 04:10 Plt Count 410 K/mcL (140-400) H 12/11/16 04:10 MPV 8.7 fL (9.4-12.4) L 12/11/16 04:10 Immature Gran % 5.0 % (0-4) H 12/11/16 04:10 Neutrophils # 10.2 K/mcL (1.6-8.9) H 12/11/16 04:10 Monocytes # 1.7 K/mcL (0.0-1.3) H 12/11/16 04:10 Toxic Granulation Present (Not Present) A 12/10/16 21:16 Platelet Estimate Marked Increase (Normal) H 12/10/16 21:16 PT 18.5 Seconds (9.4-12.1) H 12/11/16 04:10 APTT 41.7 Seconds (26.0-36.0) H 12/11/16 04:10 Chloride 111 mEq/L (98-109) H 12/11/16 04:10 BUN/Creatinine Ratio 31 (6-26) H 12/11/16 04:10 Glucose 152 mg/dL (70-99) H 12/11/16 04:10 POC Glucose 132 (58-89) H 12/11/16 05:39 Calcium 7.4 mg/dL (8.6-10.8) L 12/11/16 04:10 AST 64 Units/L (5-34) H 12/11/16 04:10 ALT 64 Units/L (0-55) H 12/11/16 04:10 Creatine Kinase 943 Units/L (30-200) H 12/11/16 04:10 Serum Total Protein 4.8 g/dL (6.0-8.3) L 12/11/16 04:10 Albumin 2.4 g/dL (3.5-5.0) L 12/11/16 04:10 Albumin/Globulin Ratio 1.0 (1.1-2.2) L 12/11/16 04:10 Prolactin 29.62 ng/mL (3.46-19.40) H 12/11/16 04:10 Urine Clarity Turbid (Clear) A 12/10/16 21:04 Ur Specific Iva > 1.030 (1.010-1.025) H 12/10/16 21:04 Urine Protein 30 mg/dL (Neg-Trace) H 12/10/16 21:04 Urine Ketones Trace mg/dL (Negative) H 12/10/16 21:04 Urine Microscopic WBC 5-15 per hpf (0-3) H 12/10/16 21:04 Ur Squamous Epith Cells Many per lpf (None-Few) H 12/10/16 21:04 Ur Culture Indicated? YES (NO) A 12/10/16 21:04 Valproic Acid 24.28 mcg/mL (50-100) L 12/10/16 21:16 Consult Discharge Plan - Plan Referrals: NO,PCP [Primary Care Provider] - <Lydia Huertas I - Last Filed: 12/11/16 14:59> Assessment and Plan (1) Toxic metabolic encephalopathy Current Visit: Yes Status: Acute (2) NMS (neuroleptic malignant syndrome) Current Visit: Yes Status: Suspected pt Seen and examined aggravated with Dr. Lange documentation and assessment and plan. This patient was been admitted to the hospital earlier also had lithium toxicity , he was discharged to [facility] and not his back again with the consent of NMS, He has ALREADY received treatment this morning, and non-examination is unresponsive even to the deep. He is not responding below his eyes are open and also having a spontaneous movement of all his extremities without any focal lateralization. Considering his history of multiple neuroleptic use along with metabolic toxic encephalopathy and now with increasing temperature blood pressure as well as rigidity which has resolved now visit concerned that he could have neuroleptic malignant syndrome/serotonin syndrome. Certainly does possibility considering his overall condition, agrees with the treatment But at the same time we do need to exclude other possibilities as well particularly in this patient I would recommend that we should exclude catatonia along with nonepileptic status epilepticus. I would recommend EEG, as well as evaluation by a psychiatrist The same time continue to treat underlying metabolic and infectious etiologies. Patient condition and treatment plan were discussed with the family is at the bedside Lydia Huertas MD History of Present Illness HPI: Mr. Dash is a 36 year old male All Systems: A 10-system review of systems was performed and is negative for pertinent findings except as documented above in the HPI. Physical Examination - Vital Signs Vital Signs: Initial Vital Signs Temp Pulse Resp BP Pulse Ox 98.3 F 113 20 124/97 96 12/10/16 19:53 12/10/16 19:53 12/10/16 19:53 12/10/16 19:53 12/10/16 19:53 Results - Laboratory Findings CBC and BMP: 12/11/16 04:10 12/11/16 04:10 Abnormal lab findings: Abnormal lab results WBC 13.5 K/mcL (4.3-11.1) H 12/11/16 04:10 RBC 3.80 M/mcL (4.19-5.50) L 12/11/16 04:10 Hgb 10.2 g/dL (12.9-16.9) L D 12/11/16 04:10 Hct 32.7 % (37.5-50.1) L 12/11/16 04:10 MCH 26.8 pg (28.0-33.3) L 12/11/16 04:10 MCHC 31.2 g/dL (31.6-35.5) L 12/11/16 04:10 RDW 15.6 % (11.5-14.5) H 12/11/16 04:10 Plt Count 410 K/mcL (140-400) H 12/11/16 04:10 MPV 8.7 fL (9.4-12.4) L 12/11/16 04:10 Immature Gran % 5.0 % (0-4) H 12/11/16 04:10 Neutrophils # 10.2 K/mcL (1.6-8.9) H 12/11/16 04:10 Monocytes # 1.7 K/mcL (0.0-1.3) H 12/11/16 04:10 Toxic Granulation Present (Not Present) A 12/10/16 21:16 Platelet Estimate Marked Increase (Normal) H 12/10/16 21:16 PT 18.5 Seconds (9.4-12.1) H 12/11/16 04:10 APTT 41.7 Seconds (26.0-36.0) H 12/11/16 04:10 Chloride 111 mEq/L (98-109) H 12/11/16 04:10 BUN/Creatinine Ratio 31 (6-26) H 12/11/16 04:10 Glucose 152 mg/dL (70-99) H 12/11/16 04:10 POC Glucose 132 (58-89) H 12/11/16 05:39 Calcium 7.4 mg/dL (8.6-10.8) L 12/11/16 04:10 AST 64 Units/L (5-34) H 12/11/16 04:10 ALT 64 Units/L (0-55) H 12/11/16 04:10 Creatine Kinase 769 Units/L (30-200) H 12/11/16 08:39 Serum Total Protein 4.8 g/dL (6.0-8.3) L 12/11/16 04:10 Albumin 2.4 g/dL (3.5-5.0) L 12/11/16 04:10 Albumin/Globulin Ratio 1.0 (1.1-2.2) L 12/11/16 04:10 Prolactin 29.62 ng/mL (3.46-19.40) H 12/11/16 04:10 Urine Clarity Turbid (Clear) A 12/10/16 21:04 Ur Specific Iva > 1.030 (1.010-1.025) H 12/10/16 21:04 Urine Protein 30 mg/dL (Neg-Trace) H 12/10/16 21:04 Urine Ketones Trace mg/dL (Negative) H 12/10/16 21:04 Urine Microscopic WBC 5-15 per hpf (0-3) H 12/10/16 21:04 Ur Squamous Epith Cells Many per lpf (None-Few) H 12/10/16 21:04 Ur Culture Indicated? YES (NO) A 12/10/16 21:04 Valproic Acid 24.28 mcg/mL (50-100) L 12/10/16 21:16
[2016-12-11] MEDS ORDERED: Levofloxacin 750 MG/150 ML 750 MG/150 ML BAG IVPB SCH (09:00)
--- NOTE | 2016-12-11 09:07 | Electrocardiograph Report ---
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
[2016-12-11] MEDS: D5% in 0.9% NACL 1,000 ML IVC SCH (14:31)
[2016-12-11] MEDS: Bisacodyl 10 MG RECTAL SUPPOSITORY RC SCH (14:43)
--- NOTE | 2016-12-11 16:11 | EEG/EMG/Oth Biometrics Report ---
EEG Procedure Report Date of procedure: 12/11/16 EEG Procedure: Routine EEG Procedure Note: pt with mental status changes, non verbal Routine EEG Routine 18-channel digital EEG was obtained to rule out any seizure activity or focal abnormalities. FINDINGS: Background rhythm during awake stage shows well-organized, well- developed, average voltage 8 to 9 hertz alpha activity in the posterior regions. It blocks with eye opening and it is bilaterally synchronous and symmetrical. No [id number] discharges or any lateralizing abnormalities are seen. Photic stimulation did not produce any abnormalities. Hyperventilation was not performed. No abnormalities were found during the procedure. Intermittent EMG artifacts were seen throughout the study making it difficult to comment on any hidden epileptiform discharges, no obvious seizure activity were noted. Stage II sleep was not achieved. IMPRESSION: this study is within the broad range of normal awake study. No epileptiform discharges or any other paroxysmal activities or focal abnormalities seen. Significant electrode and muscle artifact noted unable to comment on any hidden epileptiform discharges. Clinical correlation is recommended.
[2016-12-11] MEDS ORDERED: *HR* LORazepam 2 MG/ML VIAL IVP PRN (21:51)
[2016-12-12] MEDS: Piperacillin/Tazobactam 3.375 GM in D5% in Water (Mini-Bag+) 100 ML IVPB SCH (00:14)
[2016-12-12 05:18] LABS: INR 1.7; Prothrombin Time 18.8 Seconds (9.4-12.1)
[2016-12-12] MEDS: D5% in 0.9% NACL 1,000 ML IVC SCH ×2 (05:20→09:39)
[2016-12-12] MEDS: Vancomycin 1,250 MG in D5% in Water 250 ML IVPB SCH (05:20)
[2016-12-12 05:49] LABS: Basophils # 0.1 K/mcL (0.0-0.2); Basophils % 0.5 %; Eosinophils % 0.3 %; Hematocrit 35.3 % (37.5-50.1); Hemoglobin 10.8 g/dL (12.9-16.9); Immature Granulocytes % 4.5 % (0-4); Lymphocytes % 10.2 %; Mean Corpuscular HGB Conc 30.6 g/dL (31.6-35.5); Mean Corpuscular Hemoglobin 26.9 pg (28.0-33.3); Mean Platelet Volume 9.2 fL (9.4-12.4); Monocytes # 1.1 K/mcL (0.0-1.3); Monocytes % 11.8 %; Platelet Count 385 K/mcL (140-400); Red Blood Count 4.01 M/mcL (4.19-5.50); Red Cell Distribution Width 15.5 % (11.5-14.5); Segmented Neutrophils % 72.7 %
[2016-12-12] MEDS: *HR* Heparin 5,000 UNIT/ML VIAL SQ SCH ×2 (05:56→14:14)
[2016-12-12 06:23] LABS: BUN/Creatinine Ratio 20 (6-26); Blood Urea Nitrogen 13 mg/dL (8-26); Calcium 7.4 mg/dL (8.6-10.8); Carbon Dioxide 24 mEq/L (19-29); Chloride 113 mEq/L (98-109); Glucose 141 mg/dL (70-99); Magnesium 1.5 mg/dL (1.6-2.6); Osmolality,Calculated 298 (280-300); Phosphorous 2.1 mg/dL (2.3-4.7); Sodium 143 mEq/L (136-145); eGFR For African Americans > 60 (> 60); eGFR For Non-African Americans > 60 (> 60)
[2016-12-12] MEDS ORDERED: Potassium Phosphate 44 MEQ in 0.9 % Sodium Chloride 250 ML IVPB ONE (08:23)
[2016-12-12] MEDS ORDERED: Magnesium Sulfate 2 GM in D5% in Water 100 ML IVPB ONE (08:23)
--- NOTE | 2016-12-12 08:33 | Neurology Progress Note ---
Date of Encounter: 12/12/16 Time of Encounter: 08:31 Assessment and Plan (1) NMS (neuroleptic malignant syndrome) Current Visit: Yes Status: Resolved Patient's symptoms have improved markedly since yesterday after being given Dantrolene and other supportive measures His schizophrenia is likely contributing to his abnormal movements and speech deficit, appreciate psychiatry recommendations B12/folate collected last week WNL, TSH and ammonia WNL this visit MRI brain without contrast and EEG obtained yesterday were both negative Neurology will sign off, please call with any questions Subjective Principal diagnosis: AMS, fever Interval history: Pt seen and examined. He is mumbling today and his words are incoherent, however he does respond appropriately to commands which is a significant improvement from yesterday. His family is at bedside and is concerned about his diet and if he can tolerate oral intake. He has yet to be formally evaluated by speech therapist. Patient appears comfortable and in no acute distress. When I asked if he was having any difficulty breathing or pain anywhere he shook his head. Father is at bedside today and states there is a remote history of seizures and he was previously on seizure medications. Objective - Constitutional Vitals: Temp Pulse Resp BP Pulse Ox 98.2 F 96 16 121/77 96 12/12/16 07:19 12/12/16 07:19 12/12/16 07:19 12/12/16 07:19 12/12/16 07:19 General appearance: Present: A&O X 0 (unable to answer questions coherently), cooperative, no acute distress. Absent: answers questions appropriately (non- verbal but does nod/shake head and respond to commands such as wiggling toes, etc.) - Head Head exam: Present: atraumatic, normocephalic - Eye Eye exam: Present: PERRL, conjuntiva pink, sclera anicteric - Extremities Exam Extremities exam: Present: warm, radial pulses palpable and symetrical. 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6-35.5) L 12/12/16 04:05 RDW 15.5 % (11.5-14.5) H 12/12/16 04:05 MPV 9.2 fL (9.4-12.4) L 12/12/16 04:05 Immature Gran % 4.5 % (0-4) H 12/12/16 04:05 Toxic Granulation Present (Not Present) A 12/10/16 21:16 Platelet Estimate Marked Increase (Normal) H 12/10/16 21:16 PT 18.8 Seconds (9.4-12.1) H 12/12/16 04:05 APTT 41.7 Seconds (26.0-36.0) H 12/11/16 04:10 Potassium 3.0 mEq/L (3.5-4.5) L 12/12/16 04:30 Chloride 113 mEq/L (98-109) H 12/12/16 04:30 Creatinine 0.64 mg/dL (0.72-1.25) L 12/12/16 04:30 Glucose 141 mg/dL (70-99) H 12/12/16 04:30 POC Glucose 117 (58-89) H 12/12/16 00:24 Calcium 7.4 mg/dL (8.6-10.8) L 12/12/16 04:30 Phosphorus 2.1 mg/dL (2.3-4.7) L 12/12/16 04:30 Magnesium 1.5 mg/dL (1.6-2.6) L 12/12/16 04:30 AST 64 Units/L (5-34) H 12/11/16 04:10 ALT 64 Units/L (0-55) H 12/11/16 04:10 Creatine Kinase 517 Units/L (30-200) H 12/11/16 21:05 Serum Total Protein 4.8 g/dL (6.0-8.3) L 12/11/16 04:10 Albumin 2.4 g/dL (3.5-5.0) L 12/11/16 04:10 Albumin/Globulin Ratio 1.0 (1.1-2.2) L 12/11/16 04:10 Prolactin 29.62 ng/mL (3.46-19.40) H 12/11/16 04:10 Urine Clarity Turbid (Clear) A 12/10/16 21:04 Ur Specific [place] > 1.030 (1.010-1.025) H 12/10/16 21:04 Urine Protein 30 mg/dL (Neg-Trace) H 12/10/16 21:04 Urine Ketones Trace mg/dL (Negative) H 12/10/16 21:04 Urine Microscopic WBC 5-15 per hpf (0-3) H 12/10/16 21:04 Ur Squamous Epith Cells Many per lpf (None-Few) H 12/10/16 21:04 Ur Culture Indicated? YES (NO) A 12/10/16 21:04 Valproic Acid 24.28 mcg/mL (50-100) L 12/10/16 21:16 Consult Discharge Plan - Plan Referrals: NO,PCP [Primary Care Provider] -
--- NOTE | 2016-12-12 09:00 | Internal Med Progress Note ---
Date of Encounter: 12/12/16 Time of Encounter: 08:55 - Assessment and plan (1) Acute encephalopathy Current Visit: Yes Status: Acute (2) Mood disorder Current Visit: No Status: Acute (3) Schizophrenia Current Visit: Yes Status: Chronic Qualifiers: Schizophrenia type: unspecified Qualified Code(s): F20.9 - Schizophrenia, unspecified (4) NMS (neuroleptic malignant syndrome) Current Visit: Yes Status: Suspected (5) Hypoalbuminemia due to protein-calorie malnutrition Current Visit: Yes Status: Chronic - Subjective Interval history: Noted to be awake but no meaningful communication; does not answer/respond; mumbles unclearly and gestures with hands; - Constitutional Vitals: Temp Pulse Resp BP Pulse Ox 98.2 F 96 16 121/77 96 12/12/16 07:19 12/12/16 07:19 12/12/16 07:19 12/12/16 07:19 12/12/16 07:19 General appearance: Present: disheveled, underweight - Respiratory Respiratory exam: Present: CTAB. Absent: accessory muscle use, rales, rhonchi, wheezes - Cardiovascular Cardiovascular exam: Present: RRR, +S1, +S2. Absent: diastolic murmur, gallop, rubs, systolic murmur - GI/Abdominal GI/Abdominal exam: Present: normal bowel sounds, soft, no peritoneal signs. Absent: distended, tenderness - Extremities Exam Extremities exam: Present: full ROM, warm, radial pulses palpable and symetrical. Absent: calf tenderness, cyanotic, pedal edema - Neurological Exam Neurological exam: Present: altered, no focal deficits (further exam cannot be completed as he cannot follow commands). Absent: pronater drift, facial droop, speech deficit - Skin Skin exam: Present: dry, intact Internal Medicine: Result - Labs CBC & Chem 7: 12/12/16 04:05 12/12/16 04:30 Labs: Short CBC 12/12/16 Range/Units 04:05 WBC 9.6 (4.3-11.1) K/mcL Hgb 10.8 L (12.9-16.9) g/dL Hct 35.3 L (37.5-50.1) % Plt Count 385 (140-400) K/mcL Neutrophils # 7.0 (1.6-8.9) K/mcL BMP 12/12/16 04:30 Sodium 143 Potassium 3.0 L Chloride 113 H Carbon Dioxide 24 BUN 13 D Creatinine 0.64 L Glucose 141 H Calcium 7.4 L - ABG Interpretation ABG results: PT/INR, D-dimer PT 18.8 Seconds (9.4-12.1) H 12/12/16 04:05 - Impressions Impressions Brain MRI 12/11/16 09:45 IMPRESSION: Normal MRI of the brain without contrast within limits of motion artifact. D/ / Jaylan Thompson MD / Jaylan hTompson MD Interpreting Provider: Jaylan Thompson MD Consult Discharge Plan - Plan Referrals: NO,PCP [Primary Care Provider] -
[2016-12-12] MEDS: Pantoprazole 40 MG VIAL IVP SCH (09:34)
[2016-12-12] MEDS: Bisacodyl 10 MG RECTAL SUPPOSITORY RC SCH (11:20)
[2016-12-12 15:55] VITALS: BP 137/102
--- NOTE | 2016-12-12 16:25 | Discharge Summary ---
Date of Encounter: 12/12/16 Time of Encounter: 08:00 - Discharge Diagnosis (1) Acute encephalopathy Priority: Primary Status: Acute (2) Mood disorder Priority: Primary Status: Acute (3) Schizophrenia Priority: Secondary Status: Chronic Qualifiers: Schizophrenia type: unspecified Qualified Code(s): F20.9 - Schizophrenia, unspecified (4) NMS (neuroleptic malignant syndrome) Priority: Primary Status: Resolved (5) Hypoalbuminemia due to protein-calorie malnutrition Priority: Primary Status: Chronic - Discharge Medications Home Medications: CloNIDine HCl 0.1 mg PO TID PRN #15 tablet 12/14/16 [Rx] LORazepam [Ativan] 1 mg IM Q4HR PRN 30 Days 12/14/16 [Rx] Loratadine [Claritin] 10 mg PO DAILY #15 tablet 12/14/16 [Rx] Lurasidone [Latuda] 20 mg PO BID #30 tablet 12/14/16 [Rx] Nicotine Patch [Nicoderm] 21 mg TD DAILY #15 patch.td24 12/14/16 [Rx] Potassium Citrate [Urocit-K] 10 meq PO HS #15 tablet.er 12/14/16 [Rx] Ziprasidone injection [Geodon] 20 mg IM Q4H PRN #15 vial 12/14/16 [Rx] Allergies/Adverse Reactions: Allergies haloperidol [From Haldol] Allergy (Verified 12/14/16 00:06) See Comments Requested by psychiatrist to be listed as an allergy at this time due to disease process. milk Allergy (Verified 12/13/16 08:38) Diarrhea Pt's sister states that it is when patient drinks large amounts of milk. He eats yogurt at home. risperidone [From Risperdal] Allergy (Verified 12/14/16 00:06) See Comments Requested by psychiatrist to be listed as an allergy at this time due to disease process Procedures/tests Complete & Pending: Procedures Performed prior 72 hours Category Date Time Status MR head/brain wo con [MR] Routine MRI 12/11/16 09:45 Completed Date of admission: 12/11/16 09:10 Primary care physician: PCP NO Consults: 12/11/16 09:45 Consult to Psychiatry [CONS] Routine Consulting Provider: [facility] [place] Reason for Consult: altered mental status, possible neuroleptic malignant syndrome, h/o schizophrenia Time Notified: 09:46 Call Completed: Yes 12/11/16 11:34 Consult to Frame Expander [CONS] Routine Reason for SW Consult: Placement back in [facility] 12/11/16 16:50 Consult to Interpret Exam [CONS] Routine Consulting Provider: Lydia Huertas I Consult to Interpret Exam: Interpret EEG 12/12/16 09:32 Consult to Speech Therapy [CONS] Routine Comment: Evaluate, develop and implement POC Reason for Consult: swallow eval Time Notified: 09:33 Call Completed: Yes Discharging clinician: Ada Parker Anticipated date of discharge: 12/12/16 - Patient Status Disposition: Transfer Psychiatric Hosp Condition: Fair Functional capacity at discharge: bed bound Overall status at discharge: patient is not back to baseline - Discharge Instructions Instructions: Chronic Dysphagia (DC) Follow Up With: NO,PCP [Primary Care Provider] - Additional Instructions: Recommend that pt is transferred to Psychiatry inpt for careful monitoring while reinstituting psychotropic meds. - Diet and Activity Activity: resume usual activities as tolerated Diet: other (pureed diet with honey thick liquids) Hospital course: Mr. Dash is a 36 year old male with history of schizophrenia and bipolar disorder was admitted from [facility] due to increasing lethargy, poor oral intake and fever. Patient was suspected to have neuroleptic malignant syndrome due to use of Haldol. He presented with fevers, unexplained leukocytosis, elevated serum creatinine kinase, diffuse rigidity and responded to supportive care with IV hydration, 1 dose of IV dantrolene along with supplemental oxygen. Neurology was consulted and recommended MRI brain and EEG, which showed no acute abnormality and no evidence of seizure-like activity, respectively. On day 2, patient seems slightly improved, but noted to have hallucinations with poor communication and poor oral intake. His labs and vital signs have improved back to normal. Psychiatric consult was obtained and patient is medically stable for transfer to inpatient psychiatry unit to further manage his underlying schizophrenia and mood disorders. - Time Spent with Patient Total time spent providing and/or coordinating discharge services: Greater than 30 minutes (45 min) - Constitutional Vitals: Temp Pulse Resp BP Pulse Ox 97.9 F 103 16 137/102 96 12/12/16 15:00 12/12/16 15:00 12/12/16 15:00 12/12/16 15:00 12/12/16 09:00 General appearance: Present: A&O X 0 (mumbles incoherently, gestures with hands with no meaningful communication), underweight - Respiratory Respiratory exam: Present: CTAB. Absent: accessory muscle use, rales, rhonchi, wheezes - Cardiovascular Cardiovascular exam: Present: RRR, +S1, +S2. Absent: diastolic murmur, gallop, rubs, systolic murmur
--- NOTE | 2016-12-12 20:12 | Consult Note ---
Date of Encounter: 12/12/16 Time of Encounter: 02:00 Assessment & Recommendation (1) Schizophrenia, acute Current visit: Yes Status: Acute History of Present Illness Requesting Physician: Ada Parker MD History of present illness: Mr. Dash is a 36 year old male with Schizophrenia has returned to the [facility] with NMS. 2 weeks ago he was admitted to the medical unit with Lund and Depakote toxicity. He is reported to be staying in an ECF. He had a typical presentation of NMS which is now stabilized. s/z d/o was ruled out via neurological workup and his CPK are coming down. He is alert today but not well oriented. Only seem to be oriented to his name. Appears to be responding to internal stimuli possibly visual hallucinations. He reports seeing psychiatrists in the past upon direct questioning. A/P Immediate Post NMS , Delerium secondary to NMS. Concur with Dr Buitrago's recommendation that pt needs to be transferred to Psychiatric unit for careful monitoring while his psychotropic medications are re installed. CC: Ada Parker MD Past Med Surg Social Fam HX - Past Medical History Medical history: GERD, seizures, other - Past Surgical History Surgical History: colectomy, other - Social History Smoking Status: Current every day smoker Smokeless Tobacco Status: No Alcohol use: none Drug use: none - Family History Mother Adopted: No Family Member Ethnicity: Non- Living Status: Still Living Father Adopted: No Family Member Ethnicity: Non- Living Status: Still Living Hx Family Cardiac Disorders: Yes (heart stent) Hx Family Respiratory Disorders: Yes (copd) Hx Family Endocrine Disorder: Yes (diabetes) Medications & Allergies Benztropine Mesylate 1 mg PO BID 12/01/16 [History] Divalproex (12 HR) [Depakote (12 HR)] 500 mg PO BID 12/01/16 [History] Divalproex (24 HR) [Depakote ER (24 HR)] 1,000 mg PO HS 12/01/16 [History] Mesalamine [Pentasa] 1,000 mg PO QID 12/01/16 [History] ClonazePAM [Klonopin] 0.5 mg PO TID 30 Days 12/05/16 [Rx] Haloperidol Lactate [Haldol] 5 mg IM Q4HR 30 Days 12/05/16 [Rx] Haloperidol [Haldol] 5 mg PO Q4HR 30 Days 12/05/16 [Rx] LORazepam [Ativan] 1 mg IM Q4HR PRN 30 Days 12/05/16 [Rx] Nicotine Patch [Nicoderm] 21 mg TD DAILY patch.td24 12/05/16 [Rx] Ciprofloxacin HCl [Cipro] 500 mg PO BID 12/10/16 [History] LORazepam [Ativan] 1 mg PO Q4HR 12/10/16 [History] Allergies milk Allergy (Verified 12/01/16 16:01) Diarrhea Review of Systems Psychiatric: Reports: abnormal sleep pattern, difficulty concentrating, other Mental Status Exam Level of alertness: Alert, Follows commands Patient appearance: Disheveled Behavior: talkative, other Psychomotor activity: Normal Eye contact: Fleeting Contact Mood description: Euthymic/stable Affect description: congruent with mood, full range Speech pattern: Rambling, Mumbled, Other Speech volume: Soft/Quiet, Whispering Thought process: Disorganized Thought content: Yes Overt delusions Perceptual disturbances: Yes Reacting to internal stimuli, Yes Auditory hallucinations, Yes Visual hallucinations Attention span: Unable to Sustain Attention Memory description: Recent Impaired Patient reliability: Not Reliable Historian Intelligence estimate: Below Average Judgment: Poor Insight: Minimal Results - Vital Signs Vital signs: Temp Pulse Resp BP Pulse Ox 97.9 F 103 16 137/102 96 12/12/16 15:00 12/12/16 15:00 12/12/16 15:00 12/12/16 15:00 12/12/16 09:00 - Labs Labs: Laboratory Last Values WBC 9.6 K/mcL (4.3-11.1) 12/12/16 04:05 RBC 4.01 M/mcL (4.19-5.50) L 12/12/16 04:05 Hgb 10.8 g/dL (12.9-16.9) L 12/12/16 04:05 Hct 35.3 % (37.5-50.1) L 12/12/16 04:05 MCV 88.0 fL (83.0-100.0) 12/12/16 04:05 MCH 26.9 pg (28.0-33.3) L 12/12/16 04:05 MCHC 30.6 g/dL (31.6-35.5) L 12/12/16 04:05 RDW 15.5 % (11.5-14.5) H 12/12/16 04:05 Plt Count 385 K/mcL (140-400) 12/12/16 04:05 MPV 9.2 fL (9.4-12.4) L 12/12/16 04:05 Immature Gran % 4.5 % (0-4) H 12/12/16 04:05 Seg Neutrophils % 72.7 % 12/12/16 04:05 Band Neutrophils % 2.0 % (0-4) 12/10/16 21:16 Lymphocytes % 10.2 % 12/12/16 04:05 Monocytes % 11.8 % 12/12/16 04:05 Eosinophils % 0.3 % 12/12/16 04:05 Basophils % 0.5 % 12/12/16 04:05 Neutrophils # 7.0 K/mcL (1.6-8.9) 12/12/16 04:05 Lymphocytes # 1.0 K/mcL (0.6-4.6) 12/12/16 04:05 Monocytes # 1.1 K/mcL (0.0-1.3) 12/12/16 04:05 Eosinophils # 0.0 K/mcL (0.0-0.6) 12/12/16 04:05 Basophils # 0.1 K/mcL (0.0-0.2) 12/12/16 04:05 Toxic Granulation Present (Not Present) A 12/10/16 21:16 Platelet Estimate Marked Increase (Normal) H 12/10/16 21:16 Immature Plt Fraction 1.4 % (1.1-6.1) 12/10/16 21:16 PT 18.8 Seconds (9.4-12.1) H 12/12/16 04:05 INR 1.7 12/12/16 04:05 APTT 41.7 Seconds (26.0-36.0) H 12/11/16 04:10 Sodium 143 mEq/L (136-145) 12/12/16 04:30 Potassium 3.0 mEq/L (3.5-4.5) L 12/12/16 04:30 Chloride 113 mEq/L (98-109) H 12/12/16 04:30 Carbon Dioxide 24 mEq/L (19-29) 12/12/16 04:30 BUN 13 mg/dL (8-26) D 12/12/16 04:30 Creatinine 0.64 mg/dL (0.72-1.25) L 12/12/16 04:30 Est GFR ( Amer) > 60 (> 60) 12/12/16 04:30 Est GFR (Non-Af Amer) > 60 (> 60) 12/12/16 04:30 BUN/Creatinine Ratio 20 (6-26) 12/12/16 04:30 Glucose 141 mg/dL (70-99) H 12/12/16 04:30 POC Glucose 117 (58-89) H 12/12/16 00:24 Calculated Osmolality 298 (280-300) 12/12/16 04:30 Lactic Acid 0.7 mmol/L (0.5-2.2) 12/11/16 04:10 Calcium 7.4 mg/dL (8.6-10.8) L 12/12/16 04:30 Phosphorus 2.1 mg/dL (2.3-4.7) L 12/12/16 04:30 Magnesium 1.5 mg/dL (1.6-2.6) L 12/12/16 04:30 Total Bilirubin 0.4 mg/dL (0.2-1.2) 12/11/16 04:10 Direct Bilirubin 0.2 mg/dL (0.0-0.5) 12/11/16 04:10 Indirect Bilirubin 0.2 mg/dL (0.0-1.2) 12/11/16 04:10 AST 64 Units/L (5-34) H 12/11/16 04:10 ALT 64 Units/L (0-55) H 12/11/16 04:10 Alkaline Phosphatase 77 Units/L (38-126) 12/11/16 04:10 Ammonia 38 mcmol/L (18-72) 12/11/16 04:10 Creatine Kinase 517 Units/L (30-200) H 12/11/16 21:05 Troponin I 0.00 ng/mL (0-0.03) 12/11/16 04:10 C-Reactive Protein 2 mg/L (Less than 5) 12/11/16 04:10 Serum Total Protein 4.8 g/dL (6.0-8.3) L 12/11/16 04:10 Albumin 2.4 g/dL (3.5-5.0) L 12/11/16 04:10 Globulin 2.4 g/dL (2.4-3.5) 12/11/16 04:10 Albumin/Globulin Ratio 1.0 (1.1-2.2) L 12/11/16 04:10 TSH 0.863 mcIU/mL (0.350-4.840) 12/11/16 04:10 Prolactin 29.62 ng/mL (3.46-19.40) H 12/11/16 04:10 Urine Color Dark Yellow (Yellow) 12/10/16 21:04 Urine Clarity Turbid (Clear) A 12/10/16 21:04 Urine pH 6.5 pH Units (5.0-8.0) 12/10/16 21:04 Ur Specific Maxwell > 1.030 (1.010-1.025) H 12/10/16 21:04 Urine Protein 30 mg/dL (Neg-Trace) H 12/10/16 21:04 Urine Glucose (UA) Normal mg/dL (Normal) 12/10/16 21:04 Urine Ketones Trace mg/dL (Negative) H 12/10/16 21:04 Urine Blood Negative (Negative) 12/10/16 21:04 Urine Nitrite Negative (Negative) 12/10/16 21:04 Urine Bilirubin Negative (Negative) 12/10/16 21:04 Urine Urobilinogen Normal mg/dL (Normal) 12/10/16 21:04 Ur Leukocyte Esterase Negative (Negative) 12/10/16 21:04 Urine Microscopic RBC 0-3 per hpf (0-3) 12/10/16 21:04 Urine Microscopic WBC 5-15 per hpf (0-3) H 12/10/16 21:04 Ur Squamous Epith Cells Many per lpf (None-Few) H 12/10/16 21:04 [place] Biurate Crystals Present 12/10/16 21:04 Urine Bacteria Few per hpf (None-Few) 12/10/16 21:04 Hyaline Casts Test Not Performed 12/10/16 21:04 Ur Culture Indicated? YES (NO) A 12/10/16 21: Urine Opiates Screen Negative ng/mL (Etwgxt=498) 12/10/16 21:04 Ur Barbiturates Screen Negative ng/mL (Lcqmkp=485) 12/10/16 21:04 Valproic Acid 24.28 mcg/mL (50-100) L 12/10/16 21:16 Ur Phencyclidine Scrn Negative ng/mL (Cutoff=25) 12/10/16 21:04 Ur Amphetamines Screen Negative ng/mL (Mlbtwz=2584) 12/10/16 21:04 U Benzodiazepines Scrn Negative ng/mL (Ugvxfr=675) 12/10/16 21:04 Lund 0.6 mEq/L (0.6-1.2) 12/10/16 20:40 Urine Cocaine Screen Negative ng/mL (Cutoff= 300) 12/10/16 21:04 U Marijuana (THC) Screen Negative ng/mL (Cutoff = 50) 12/10/16 21:04 Ethyl Alcohol < 10 mg/dL (0-10) 12/10/16 21:16 Specimen Rejected Miscellaneous 12/10/16 21:05 Consult Discharge Plan - Plan Instructions: Chronic Dysphagia (DC) Additional Instructions: Recommend that pt is transferred to Psychiatry inpt for careful monitoring while reinstituting psychotropic meds. Referrals: NO,PCP [Primary Care Provider] -
[2016-12-13 22:44] LABS: Valproate Free <7 ug/mL (7-23); Valproate Total 14 ug/mL (50-125)
== END 2016-12-12 20:10 | DRG 91 ==
LOC: EMEROO 19:46 → 2NNU 19:46 → SUATTDRO 22:47 → 2NENU 23:21 → 2NNU 12-11 02:05
PROVIDERS: ADMIT Internal Medicine Endocrinology, Diabetes & Metabolism; ATTEND Internal Medicine

== ENCOUNTER 2016-12-12 21:03 | Inpatient (IN) ==
[~2016-12-12 21:03] MED LIST: Aminoglycoside Consult 1 EACH MC ONE
[2016-12-12] MEDS ORDERED: MOM Conc 10 ML UD.LIQ PO PRN (22:51)
[2016-12-12] MEDS ORDERED: Ibuprofen 400 MG TABLET PO PRN (22:51)
[2016-12-12] MEDS ORDERED: hydrOXYzine pamoate 25 MG CAPSULE PO PRN (22:51)
[2016-12-12] MEDS ORDERED: Acetaminophen 325 MG TABLET PO PRN (22:51)
[2016-12-12] MEDS ORDERED: Mag Hydrox/Al Hydrox/Simeth 30 ML UDC PO PRN (22:51)
[2016-12-12] MEDS ORDERED: *HR* LORazepam 1 MG TABLET PO PRN (22:51)
[2016-12-12] MEDS ORDERED: Ziprasidone 20 MG CAPSULE PO PRN (23:00)
[2016-12-13] MEDS: Ziprasidone injection 20 MG/ML VIAL IM PRN ×2 (02:07→21:45)
[2016-12-13] MEDS: *HR* LORazepam 2 MG/ML VIAL IM PRN ×2 (02:07→15:07)
[2016-12-13] MEDS ORDERED: cloNIDine HCl 0.1 MG TABLET PO PRN (12:12)
[2016-12-13] MEDS: Nicotine 21 MG PATCH.TD24 TD SCH (13:17)
[2016-12-13] MEDS ORDERED: Ziprasidone injection 20 MG/ML VIAL IM ONE (14:19)
[2016-12-13 15:38] LABS: Alanine Aminotransferase 78 Units/L (0-55); Albumin 2.8 g/dL (3.5-5.0); Albumin/Globulin Ratio 1.1 (1.1-2.2); Alkaline Phosphatase 80 Units/L (38-126); Aspartate Amino Transferase 47 Units/L (5-34); BUN/Creatinine Ratio 16 (6-26); Bilirubin,Direct 0.2 mg/dL (0.0-0.5); Bilirubin,Indirect 0.3 mg/dL (0.0-1.2); Bilirubin,Total 0.5 mg/dL (0.2-1.2); Blood Urea Nitrogen 10 mg/dL (8-26); Calcium 8.2 mg/dL (8.6-10.8); Carbon Dioxide 23 mEq/L (19-29); Chloride 108 mEq/L (98-109); Globulin 2.5 g/dL (2.4-3.5); Glucose 103 mg/dL (70-99); Osmolality,Calculated 289 (280-300); Potassium 3.1 mEq/L (3.5-4.5); Sodium 140 mEq/L (136-145); Total Protein 5.3 g/dL (6.0-8.3); eGFR For African Americans > 60 (> 60); eGFR For Non-African Americans > 60 (> 60)
[2016-12-13] MEDS ORDERED: Haloperidol Lactate 5 MG/ML VIAL IM SCH (16:00)
[2016-12-13 16:02] LABS: Triiodothyronine (T3) Total 0.42 ng/mL (0.58-1.59)
--- NOTE | 2016-12-13 16:23 | Internal Medicine Consult Note ---
Date of Encounter: 12/13/16 Time of Encounter: 16:20 - Assessment and Plan (1) Fall Current Visit: Yes Status: Acute Assessment and plan: Patient with fall and head injury. Would recommend CT scan of the head. We will also consult surgery to evaluate the patient's laceration wound. Qualifiers: Encounter type: initial encounter Qualified Code(s): W19.XXXA - Unspecified fall, initial encounter Internal Medicine - CN: HPI - Data of Consult Patient: known to practice within the last 3 years Requesting Physician: Kg Cruz MD - Consult Narrative Reason for consult: Fall and head injury History of present illness: Mr. Dash is a 36 year old male admitted to psych unit for schizophrenia apparently had a fall and hit his head. He has an open laceration on his forehead measuring about 3-4 cm long. Patient has been having confusion and is on multiple psychotropic medications. He has also been having some bleeding through his nose. According to nursing staff patient has been confused since before his fall and has been slightly more lethargic since the fall. No other focal weakness or symptoms reported Past Med Surg Social Fam HX - Past Medical History Medical history: GERD, seizures, other Psychiatric history: anxiety, bipolar, depression, previous psychiatric hospitalization, other - Past Surgical History Surgical History: colectomy, other - Social History Smoking Status: Current every day smoker Smokeless Tobacco Status: No Alcohol use: none Drug use: none - Family History Mother Adopted: No Family Member Ethnicity: Non- Living Status: Still Living Father Adopted: No Family Member Ethnicity: Non- Living Status: Still Living Hx Family Cardiac Disorders: Yes (heart stent) Hx Family Respiratory Disorders: Yes (copd) Hx Family Endocrine Disorder: Yes (diabetes) All systems: reviewed and no additional remarkable complaints except as stated Internal Medicine - CN: Meds Benztropine Mesylate 1 mg PO BID 12/01/16 [History] Divalproex (12 HR) [Depakote (12 HR)] 500 mg PO BID 12/01/16 [History] Divalproex (24 HR) [Depakote ER (24 HR)] 1,000 mg PO HS 12/01/16 [History] Mesalamine [Pentasa] 1,000 mg PO QID 12/01/16 [History] ClonazePAM [Klonopin] 0.5 mg PO TID 30 Days 12/05/16 [Rx] Haloperidol Lactate [Haldol] 5 mg IM Q4HR 30 Days 12/05/16 [Rx] Haloperidol [Haldol] 5 mg PO Q4HR 30 Days 12/05/16 [Rx] LORazepam [Ativan] 1 mg IM Q4HR PRN 30 Days 12/05/16 [Rx] Nicotine Patch [Nicoderm] 21 mg TD DAILY patch.td24 12/05/16 [Rx] Ciprofloxacin HCl [Cipro] 500 mg PO BID 12/10/16 [History] LORazepam [Ativan] 1 mg PO Q4HR 12/10/16 [History] Allergies milk Allergy (Verified 12/13/16 08:38) Diarrhea Pt's sister states that it is when patient drinks large amounts of milk. He eats yogurt at home. Internal Medicine - CN: Exam - Constitutional Vitals: Temp Pulse Resp BP Pulse Ox 98.8 F 62 22 126/68 95 12/13/16 13:16 12/13/16 13:16 12/13/16 09:00 12/13/16 13:16 12/13/16 01:29 General appearance IM: Present: cooperative, A&O X 1. Absent: answers questions appropriately - Head Additional comments: Laceration wound on the forehead measuring about 4 cm in size - ENT Additional comments: Dried blood noted in the nasal mucosa Internal Medicine - CN: Reslt - Labs CBC & Chem 7: 12/13/16 14:53 Labs: BMP 12/13/16 14:53 Sodium 140 Potassium 3.1 L Chloride 108 Carbon Dioxide 23 BUN 10 Creatinine 0.61 L Glucose 103 H Calcium 8.2 L Liver Function 12/13/16 Range/Units 14:53 Total Bilirubin 0.5 (0.2-1.2) mg/dL Direct Bilirubin 0.2 (0.0-0.5) mg/dL AST 47 H (5-34) Units/L ALT 78 H (0-55) Units/L Alkaline Phosphatase 80 (38-126) Units/L Albumin 2.8 L (3.5-5.0) g/dL
--- NOTE | 2016-12-13 18:41 | Psychiatry History & Physical ---
Date of Encounter: 12/13/16 Time of Encounter: 11:30 History of Present Illness Patient Stated Chief Complaint: Confusion and agitation Medicare Admission Attestation: For traditional Medicare patients the provided hospital inpatient services are reasonable and necessary and in the case of services not specified as inpatient -only under 42 CFR 419.22 (n), that they are appropriately provided as inpatient services in accordance 42 CFR 412.3. For Critical Access Hospital the patient may reasonably be expected to be discharged or transferred to a hospital within 96 hours after admission to the Critical Access Hospital. Admitted From: Intrahospital Transfer Plans for Post Hospital Care: Transfer Sn[facility] Care History of Present Illness: Mr. Dash is a 36 year old male with longstanding h/o Schizophrenia and multiple psychiatric hospitalizations. Pt was last discharged from Medical service at [place] about 3 weeks ago. He had an infection and dehydration at the time and developed [place] and Depakote toxicity. His meds were lowered . Pt returned earlier this week from his longterm with c/o rigidity , fever and confusion. After thorough work up it was clear that he has NMS with Rhabdo. He was stabilized and transferred to Psychiatry Service for re establishing medications to address his psychsis. Pt's father reported that pt used to be on Clozaril in the past and initially responded well to it but last year his psychosis and cognition worsened and his psychiatrist discontinued his Clozaril which gave him some relief from diarrhea that he had on Clozaril. He has continued to decline psychiatrically eversince and has not done well on any meds. Pt is unableto appropriately respond to questions for psychiatric assessment so this info is obtained from hospital records. Past Med Surg Social Fam HX - Past Medical History Medical history: GERD, seizures, other - Past Surgical History Surgical History: colectomy, other - Social History Smoking Status: Current every day smoker Smokeless Tobacco Status: No Alcohol use: none Drug use: none - Family History Mother Adopted: No Family Member Ethnicity: Non- Living Status: Still Living Father Adopted: No Family Member Ethnicity: Non- Living Status: Still Living Hx Family Cardiac Disorders: Yes (heart stent) Hx Family Respiratory Disorders: Yes (copd) Hx Family Endocrine Disorder: Yes (diabetes) Medications & Allergies Benztropine Mesylate 1 mg PO BID 12/01/16 [History] Divalproex (12 HR) [Depakote (12 HR)] 500 mg PO BID 12/01/16 [History] Divalproex (24 HR) [Depakote ER (24 HR)] 1,000 mg PO HS 12/01/16 [History] Mesalamine [Pentasa] 1,000 mg PO QID 12/01/16 [History] ClonazePAM [Klonopin] 0.5 mg PO TID 30 Days 12/05/16 [Rx] Haloperidol Lactate [Haldol] 5 mg IM Q4HR 30 Days 12/05/16 [Rx] Haloperidol [Haldol] 5 mg PO Q4HR 30 Days 12/05/16 [Rx] LORazepam [Ativan] 1 mg IM Q4HR PRN 30 Days 12/05/16 [Rx] Nicotine Patch [Nicoderm] 21 mg TD DAILY patch.td24 12/05/16 [Rx] Ciprofloxacin HCl [Cipro] 500 mg PO BID 12/10/16 [History] LORazepam [Ativan] 1 mg PO Q4HR 12/10/16 [History] Allergies milk Allergy (Verified 12/13/16 08:38) Diarrhea Pt's sister states that it is when patient drinks large amounts of milk. He eats yogurt at home. Review of Systems Psychiatric: Reports: abnormal sleep pattern, auditory hallucinations, visual hallucinations, anhedonia, difficulty concentrating, irritability, mood swings Mental Status Exam Patient orientation: Yes Person Level of alertness: Alert, Follows commands Patient appearance: Unkempt, Disheveled, Malodorous, Mal-nourished, Thin Behavior: anxious, agitated, guarded, talkative Psychomotor activity: Repetitive movements Eye contact: Diverts Contact Mood description: Anxious, Labile, Irritable Affect description: congruent with mood Speech pattern: Disorganized, Inappropriate to situation, Slurred, Garbled, Rambling Speech volume: Normal, Loud Thought process: Tangential, Slowed Thinking Thought content: Yes Poverty of Content Perceptual disturbances: Yes Reacting to internal stimuli, Yes Auditory hallucinations, Yes Visual hallucinations Attention span: Unable to Sustain Attention Patient reliability: Not Reliable Historian Intelligence estimate: Below Average Insight: Minimal Results - Vital Signs Vital signs: Temp Pulse Resp BP Pulse Ox 98.8 F 62 22 126/68 95 12/13/16 13:16 12/13/16 13:16 12/13/16 09:00 12/13/16 13:16 12/13/16 01:29 - Labs Labs: Laboratory Last Values Sodium 140 mEq/L (136-145) 12/13/16 14:53 Potassium 3.1 mEq/L (3.5-4.5) L 12/13/16 14:53 Chloride 108 mEq/L (98-109) 12/13/16 14:53 Carbon Dioxide 23 mEq/L (19-29) 12/13/16 14:53 BUN 10 mg/dL (8-26) 12/13/16 14:53 Creatinine 0.61 mg/dL (0.72-1.25) L 12/13/16 14:53 Est GFR ( Amer) > 60 (> 60) 12/13/16 14:53 Est GFR (Non-Af Amer) > 60 (> 60) 12/13/16 14:53 BUN/Creatinine Ratio 16 (6-26) 12/13/16 14:53 Glucose 103 mg/dL (70-99) H 12/13/16 14:53 Calculated Osmolality 289 (280-300) 12/13/16 14:53 Calcium 8.2 mg/dL (8.6-10.8) L 12/13/16 14:53 Total Bilirubin 0.5 mg/dL (0.2-1.2) 12/13/16 14:53 Direct Bilirubin 0.2 mg/dL (0.0-0.5) 12/13/16 14:53 Indirect Bilirubin 0.3 mg/dL (0.0-1.2) 12/13/16 14:53 AST 47 Units/L (5-34) H 12/13/16 14:53 ALT 78 Units/L (0-55) H 12/13/16 14:53 Alkaline Phosphatase 80 Units/L (38-126) 12/13/16 14:53 Serum Total Protein 5.3 g/dL (6.0-8.3) L 12/13/16 14:53 Albumin 2.8 g/dL (3.5-5.0) L 12/13/16 14:53 Globulin 2.5 g/dL (2.4-3.5) 12/13/16 14:53 Albumin/Globulin Ratio 1.1 (1.1-2.2) 12/13/16 14:53 Thyroxine (T4) 5.68 mcg/dL (4.87-11.72) 12/13/16 14:53 Total T3 0.42 ng/mL (0.58-1.59) L 12/13/16 14:53 Stl C. diff Tox B Gene Negative (Negative) 12/13/16 07:20 - Impressions Impressions Head CT 12/13/16 16:30 IMPRESSION: No acute intracranial abnormality. Age-indeterminate nasal bone fractures. Correlate with physical exam. D/ / Chucky Houston MD / Chucky Houston MD Interpreting Provider: Chucky Houston MD Assessment and Plan (1) Schizophrenia, acute undifferentiated Current visit: Yes Status: Acute Plan: Admit inpatient for safety and stabilization, Close observation, Suicide Precautions per unit protocol, Encourage participation in unit milieu, Group Therapy, Monitor sleep, Monitor appetite Risks, benefits, side effects, alternatives discussed w/pt: Yes Patient agreeable to treatment: Yes Plans for Post Hospital Care: Transfer Quality Control Coordinator Care Estimated Length of Stay (Days ): 7
[2016-12-13] MEDS ORDERED: Potassium Citrate 10 MEQ TABLET.ER PO SCH (21:00)
[2016-12-13] MEDS: Lurasidone 20 MG TABLET PO SCH (21:00)
[2016-12-14] MEDS: Nicotine 21 MG PATCH.TD24 TD SCH (07:08)
[2016-12-14] MEDS: Lurasidone 20 MG TABLET PO SCH (08:35)
[2016-12-14] MEDS ORDERED: Loratadine 10 MG TABLET PO SCH (09:00)
[2016-12-14 09:13] VITALS: BP 122/90
--- NOTE | 2016-12-14 09:36 | General Surgery Consult Note ---
<HillWilder Anderson - Last Filed: 12/14/16 12:23> Date of Encounter: 12/14/16 Time of Encounter: 09:33 Assessment and Plan (1) Laceration Status: Acute Pt. with fall and midline forehead laceration. Laceration approximately 3-4 cm. Has 4 steri-strips in place over laceration. It is a very superficial laceration and will not require any sutures. History of Present Illness Consult date: 12/13/16 Reason for consult: other (laceration) Requesting physician: Constantin Chauhan History of present illness: Mr. Dash is a 36 year old male admitted to psych unit for schizophrenia apparently had a fall and hit his head. He has an open laceration on his forehead measuring about 3-4 cm long. Patient has been having confusion and is on multiple psychotropic medications. He has also been having some bleeding through his nose. According to nursing staff patient has been confused since before his fall and has been slightly more lethargic since the fall. No other focal weakness or symptoms reported Past Med Surg Social Fam HX - Past Medical History Medical history: GERD, seizures, other Psychiatric history: anxiety, bipolar, depression, previous psychiatric hospitalization, other - Past Surgical History Surgical History: colectomy, other - Social History Smoking Status: Current every day smoker Smokeless Tobacco Status: No Alcohol use: none Drug use: none - Family History Mother Adopted: No Family Member Ethnicity: Non- Living Status: Still Living Father Adopted: No Family Member Ethnicity: Non- Living Status: Still Living Hx Family Cardiac Disorders: Yes (heart stent) Hx Family Respiratory Disorders: Yes (copd) Hx Family Endocrine Disorder: Yes (diabetes) Medications and Allergies CloNIDine HCl 0.1 mg PO TID PRN #15 tablet 12/14/16 [Rx] LORazepam [Ativan] 1 mg IM Q4HR PRN 30 Days 12/14/16 [Rx] Loratadine [Claritin] 10 mg PO DAILY #15 tablet 12/14/16 [Rx] Lurasidone [Latuda] 20 mg PO BID #30 tablet 12/14/16 [Rx] Nicotine Patch [Nicoderm] 21 mg TD DAILY #15 patch.td24 12/14/16 [Rx] Potassium Citrate [Urocit-K] 10 meq PO HS #15 tablet.er 12/14/16 [Rx] Ziprasidone injection [Geodon] 20 mg IM Q4H PRN #15 vial 12/14/16 [Rx] Allergies haloperidol [From Haldol] Allergy (Verified 12/14/16 00:06) See Comments Requested by psychiatrist to be listed as an allergy at this time due to disease process. milk Allergy (Verified 12/13/16 08:38) Diarrhea Pt's sister states that it is when patient drinks large amounts of milk. He eats yogurt at home. risperidone [From Risperdal] Allergy (Verified 12/14/16 00:06) See Comments Requested by psychiatrist to be listed as an allergy at this time due to disease process Review of Systems ROS unobtainable: due to mental status All systems PM: reviewed and no additional remarkable complaints except as stated All systems PM: A 10-system review of systems was performed and is negative for pertinent findings except as documented above in the HPI. General Surgery Exam Initial Vital Signs Temp Pulse Resp BP Pulse Ox 98.3 F 99 18 135/97 96 12/12/16 20:30 12/12/16 20:30 12/12/16 20:30 12/12/16 20:30 12/12/16 20:30 - Additional Findings General appearance IM: Present: cooperative, A&O X 1. Absent: answers questions appropriately - Head Additional comments: Laceration wound on the forehead measuring about 4 cm in size. The wound is very superficial. Steri-strips in place. - ENT Additional comments: Dried blood noted in the nasal mucosa Exam Initial Vital Signs Temp Pulse Resp BP Pulse Ox 98.3 F 99 18 135/97 96 12/12/16 20:30 12/12/16 20:30 12/12/16 20:30 12/12/16 20:30 12/12/16 20:30 Results - Labs 12/13/16 14:53 Abnormal lab results Potassium 3.1 mEq/L (3.5-4.5) L 12/13/16 14:53 Creatinine 0.61 mg/dL (0.72-1.25) L 12/13/16 14:53 Glucose 103 mg/dL (70-99) H 12/13/16 14:53 Calcium 8.2 mg/dL (8.6-10.8) L 12/13/16 14:53 AST 47 Units/L (5-34) H 12/13/16 14:53 ALT 78 Units/L (0-55) H 12/13/16 14:53 Serum Total Protein 5.3 g/dL (6.0-8.3) L 12/13/16 14:53 Albumin 2.8 g/dL (3.5-5.0) L 12/13/16 14:53 Total T3 0.42 ng/mL (0.58-1.59) L 12/13/16 14:53 Diabetes panel 12/13/16 Range/Units 14:53 Sodium 140 (136-145) mEq/L Potassium 3.1 L (3.5-4.5) mEq/L Chloride 108 (98-109) mEq/L Carbon Dioxide 23 (19-29) mEq/L BUN 10 (8-26) mg/dL Creatinine 0.61 L (0.72-1.25) mg/dL Glucose 103 H (70-99) mg/dL Calcium 8.2 L (8.6-10.8) mg/dL AST 47 H (5-34) Units/L ALT 78 H (0-55) Units/L Alkaline Phosphatase 80 (38-126) Units/L Albumin 2.8 L (3.5-5.0) g/dL Thyroid panel 12/13/16 Range/Units 14:53 Thyroxine (T4) 5.68 (4.87-11.72) mcg/dL Calcium panel 12/13/16 Range/Units 14:53 Calcium 8.2 L (8.6-10.8) mg/dL Albumin 2.8 L (3.5-5.0) g/dL Pituitary panel 12/13/16 Range/Units 14:53 Sodium 140 (136-145) mEq/L Potassium 3.1 L (3.5-4.5) mEq/L Chloride 108 (98-109) mEq/L Carbon Dioxide 23 (19-29) mEq/L BUN 10 (8-26) mg/dL Creatinine 0.61 L (0.72-1.25) mg/dL Glucose 103 H (70-99) mg/dL Calcium 8.2 L (8.6-10.8) mg/dL Thyroxine (T4) 5.68 (4.87-11.72) mcg/dL Total T3 0.42 L (0.58-1.59) ng/mL Adrenal panel 12/13/16 Range/Units 14:53 Sodium 140 (136-145) mEq/L Potassium 3.1 L (3.5-4.5) mEq/L Chloride 108 (98-109) mEq/L Carbon Dioxide 23 (19-29) mEq/L BUN 10 (8-26) mg/dL Creatinine 0.61 L (0.72-1.25) mg/dL Glucose 103 H (70-99) mg/dL Calcium 8.2 L (8.6-10.8) mg/dL Total Bilirubin 0.5 (0.2-1.2) mg/dL AST 47 H (5-34) Units/L ALT 78 H (0-55) Units/L Alkaline Phosphatase 80 (38-126) Units/L Albumin 2.8 L (3.5-5.0) g/dL All other labs normal. Consult Discharge Plan - Plan Instructions: Fall Prevention (DC) Prescriptions: LORazepam [Ativan] 1 mg IM Q4HR PRN 30 Days PRN Reason: Anxiety CloNIDine HCl 0.1 mg PO TID PRN #15 tablet PRN Reason: Blood Pressure - High Loratadine [Claritin] 10 mg PO DAILY #15 tablet Lurasidone [Latuda] 20 mg PO BID #30 tablet Nicotine Patch [Nicoderm] 21 mg TD DAILY #15 patch.td24 Potassium Citrate [Urocit-K] 10 meq PO HS #15 tablet.er Ziprasidone injection [Geodon] 20 mg IM Q4H PRN #15 vial PRN Reason: Agitation <Tony Kirkland T - Last Filed: 12/15/16 12:58> Review of Systems All systems PM: A 10-system review of systems was performed and is negative for pertinent findings except as documented above in the HPI. General Surgery Exam Initial Vital Signs Temp Pulse Resp BP Pulse Ox 98.3 F 99 18 135/97 96 12/12/16 20:30 12/12/16 20:30 12/12/16 20:30 12/12/16 20:30 12/12/16 20:30 Exam Initial Vital Signs Temp Pulse Resp BP Pulse Ox 98.3 F 99 18 135/97 96 12/12/16 20:30 12/12/16 20:30 12/12/16 20:30 12/12/16 20:30 12/12/16 20:30 Results - Labs 12/14/16 12:41 Abnormal lab results Potassium 2.5 mEq/L (3.5-4.5) L* 12/14/16 12:41 Creatinine 0.60 mg/dL (0.72-1.25) L 12/14/16 12:41 Calcium 8.2 mg/dL (8.6-10.8) L 12/14/16 12:41 AST 47 Units/L (5-34) H 12/13/16 14:53 ALT 78 Units/L (0-55) H 12/13/16 14:53 Serum Total Protein 5.3 g/dL (6.0-8.3) L 12/13/16 14:53 Albumin 2.8 g/dL (3.5-5.0) L 12/13/16 14:53 Total T3 0.42 ng/mL (0.58-1.59) L 12/13/16 14:53 Diabetes panel 12/14/16 Range/Units 12:41 Sodium 141 (136-145) mEq/L Potassium 2.5 L* (3.5-4.5) mEq/L Chloride 106 (98-109) mEq/L Carbon Dioxide 24 (19-29) mEq/L BUN 8 (8-26) mg/dL Creatinine 0.60 L (0.72-1.25) mg/dL Glucose 99 (70-99) mg/dL Calcium 8.2 L (8.6-10.8) mg/dL Calcium panel 12/14/16 Range/Units 12:41 Calcium 8.2 L (8.6-10.8) mg/dL Pituitary panel 12/14/16 Range/Units 12:41 Sodium 141 (136-145) mEq/L Potassium 2.5 L* (3.5-4.5) mEq/L Chloride 106 (98-109) mEq/L Carbon Dioxide 24 (19-29) mEq/L BUN 8 (8-26) mg/dL Creatinine 0.60 L (0.72-1.25) mg/dL Glucose 99 (70-99) mg/dL Calcium 8.2 L (8.6-10.8) mg/dL Adrenal panel 12/14/16 Range/Units 12:41 Sodium 141 (136-145) mEq/L Potassium 2.5 L* (3.5-4.5) mEq/L Chloride 106 (98-109) mEq/L Carbon Dioxide 24 (19-29) mEq/L BUN 8 (8-26) mg/dL Creatinine 0.60 L (0.72-1.25) mg/dL Glucose 99 (70-99) mg/dL Calcium 8.2 L (8.6-10.8) mg/dL All other labs normal. - Attending Attestation I examined this patient and my medical decision-making was reviewed with the SWE[employer] PICKLE [employer]KER/PA/Advanced Practice Nurse/Resident Physician. I agree with the documented findings, disposition and treatment plan as described except to the extent set forth below. The patient is seen and evaluated with the resident. The patient seems to have a combination minor laceration and abrasion in the middle of the forehead. This should do well with just local therapy with Steri-Strips. No surgical repairs required. Tony Kirkland MD FACS
--- NOTE | 2016-12-14 09:53 | Event Note ---
Date of Encounter: 12/14/16 Time of Encounter: 09:[address] of the head. No intracranial bleed. Bilateral non displaced nasal girish fracture present. Indeteminate age. Recommend follow up with ENT as oupatient. Can be arranged at the time of discharge.
[2016-12-14 13:08] LABS: BUN/Creatinine Ratio 13 (6-26); Blood Urea Nitrogen 8 mg/dL (8-26); Calcium 8.2 mg/dL (8.6-10.8); Carbon Dioxide 24 mEq/L (19-29); Chloride 106 mEq/L (98-109); Glucose 99 mg/dL (70-99); Osmolality,Calculated 290 (280-300); Sodium 141 mEq/L (136-145); eGFR For African Americans > 60 (> 60); eGFR For Non-African Americans > 60 (> 60)
[2016-12-14 13:11] LABS: Potassium 2.5 mEq/L (3.5-4.5)
--- NOTE | 2016-12-14 14:15 | Discharge Summary ---
Date of Encounter: 12/14/16 Time of Encounter: 14:04 Diagnosis - Discharge Diagnosis (1) Schizophrenia, acute undifferentiated Status: Acute Medications - Discharge Medications Prescriptions: LORazepam [Ativan] 1 mg IM Q4HR PRN 30 Days PRN Reason: Anxiety CloNIDine HCl 0.1 mg PO TID PRN #15 tablet PRN Reason: Blood Pressure - High Loratadine [Claritin] 10 mg PO DAILY #15 tablet Lurasidone [Latuda] 20 mg PO BID #30 tablet Nicotine Patch [Nicoderm] 21 mg TD DAILY #15 patch.td24 Potassium Citrate [Urocit-K] 10 meq PO HS #15 tablet.er Ziprasidone injection [Geodon] 20 mg IM Q4H PRN #15 vial PRN Reason: Agitation CloNIDine HCl 0.1 mg PO TID PRN #15 tablet 12/14/16 [Rx] LORazepam [Ativan] 1 mg IM Q4HR PRN 30 Days 12/14/16 [Rx] Loratadine [Claritin] 10 mg PO DAILY #15 tablet 12/14/16 [Rx] Lurasidone [Latuda] 20 mg PO BID #30 tablet 12/14/16 [Rx] Nicotine Patch [Nicoderm] 21 mg TD DAILY #15 patch.td24 12/14/16 [Rx] Potassium Citrate [Urocit-K] 10 meq PO HS #15 tablet.er 12/14/16 [Rx] Ziprasidone injection [Geodon] 20 mg IM Q4H PRN #15 vial 12/14/16 [Rx] Allergies haloperidol [From Haldol] Allergy (Verified 12/14/16 00:06) See Comments Requested by psychiatrist to be listed as an allergy at this time due to disease process. milk Allergy (Verified 12/13/16 08:38) Diarrhea Pt's sister states that it is when patient drinks large amounts of milk. He eats yogurt at home. risperidone [From Risperdal] Allergy (Verified 12/14/16 00:06) See Comments Requested by psychiatrist to be listed as an allergy at this time due to disease process Results Procedures and tests throughout hospitalization: Completed Lab Orders Category Date Time Status Basic Metabolic Panel Stat Lab 12/13/16 14:53 Completed Chem 7 [Basic Metabolic Panel] Timed Lab 12/14/16 12:41 Completed LFTs [Hepatic Panel] Stat Lab 12/13/16 14:53 Completed Thyroxine (T4) Total Stat Lab 12/13/16 14:53 Completed Triiodothyronine (T3) Total Stat Lab 12/13/16 14:53 Completed Completed Imaging Orders Category Date Time Status CT head/brain wo con [CT] Stat Cat Scan 12/13/16 16:30 Completed - Impressions Impressions Head CT 12/13/16 16:30 IMPRESSION: No acute intracranial abnormality. Age-indeterminate nasal bone fractures. Correlate with physical exam. D/ / Chucky Houston MD / Chucky Houston MD Interpreting Provider: Chucky Houston MD Provider Date of admission: 12/12/16 21:04 Consults: 12/13/16 11:15 Consult to Pastoral Services [CONS] Routine Comment: 12/13/16 12:17 Consult to Occupational Therapy [CONS] Stat Comment: Evaluate, develop and implement POC Consult to Physical Therapy [CONS] Stat Comment: Evaluate, develop and implement POC Consult to Speech Therapy [CONS] Stat Comment: Evaluate, develop and implement POC Reason for Consult: swallowing Call Completed: Yes 12/13/16 12:59 Consult to Hospitalist [CONS] Stat Consulting Provider: Hospitalist Emgelaura Reason for Consult: Pt fell hit head. Has knot on head and is bleeding. Please call to talk to psychiatrist, Dr Chauhan paged at 1300 to call 1A. Time Notified: 13:02 Call Completed: Yes 12/13/16 16:30 Consult to Surgery [CONS] Routine Consulting Provider: [facility] Reason for Consult: Fall and head injury with laceration wound on the forehead Time Notified: 16:35 Call Completed: Yes 12/14/16 13:27 Consult to Hospitalist [CONS] Stat Consulting Provider: Hospitalist Emgelaura Reason for Consult: potassium level critically low 2.5; needs to go to medical floor for IV Time Notified: 13:28 Call Completed: Yes Discharging clinician: Kg Cruz Assessment and Plan - Follow up Plan Disposition: Admitted As Inpatient Hospital Course Hospital course: Mr. Dash is a 36 year old male with SCZ CUT and recent NMS with Rhabdo secondary to Haloperidol. Pt was treated on Medical Service for his NMS and medically cleared 2 days ago when he was transferred to Psychiatry Service for psychiatric stabilization. However pt still had delerium with tachycardia, HTN and Hypokalemia. In addition on 12/13 he tried to get out of bed and fell causing a laceration on his forehead. He was observed to be disoriented rambling monologues and barely able to follow some commands. He was frequently responding to visual hallucinations. Lurasidone was started as his main antipsychotic though pt also needed emergency IM Geodon to address his acute agitation when he constantly hit his feet on the footend of the bed. He was also started on Clonidine PRN for BP elevation and KCl 10 meq for hypokalemia. His K was also checked stat on 12/14/16 and he had critically low level of 2.5 necessitating transfer to medical service for medical stabilization of his hypokalemia and HTN. Time spent discussing smoking cessation with patient: 3 to 10 minutes Does patient wish to continue nicotine replacement upon disc: No - Time Spent with Patient Total time spent providing and/or coordinating discharge services: Less than 30 minutes Quality - Multiple Antipsychotics Patient discharged on 2 or more antipsychotic medications: No Mental Status Exam - Mental Status Exam Patient orientation: Yes Person Level of alertness: Alert, Follows commands Patient appearance: Unkempt, Disheveled, Malodorous, Mal-nourished, Thin Behavior: anxious, agitated, guarded, talkative Psychomotor activity: Repetitive movements Eye contact: Diverts Contact Mood description: Anxious, Labile, Irritable Affect description: congruent with mood Speech pattern: Disorganized, Inappropriate to situation, Slurred, Garbled, Rambling Speech Volume: Normal, Loud Thought process: Tangential, Slowed Thinking Thought Content: Yes Poverty of Content Perceptual Disturbances: Yes Reacting to internal stimuli, Yes Auditory hallucinations, Yes Visual hallucinations Insight: Minimal
== END 2016-12-14 14:45 | disposition other institution (70) | DRG 885 ==
LOC: 1ANU 21:04
PROVIDERS: ADMIT Psychiatry & Neurology Psychiatry; ATTEND Psychiatry & Neurology Psychiatry

== ENCOUNTER 2016-12-14 14:01 | Inpatient (IN) ==
[2016-12-14] MEDS ORDERED: Naloxone 0.4 MG/ML INJ IVP PRN (15:03)
[2016-12-14] MEDS ORDERED: cloNIDine HCl 0.1 MG TABLET PO PRN (15:04)
[2016-12-14] MEDS ORDERED: Potassium Chloride 40 MEQ, Lidocaine 1% 2 ML in D5% in Water 500 ML IVPB ONE (15:05)
--- NOTE | 2016-12-14 15:10 | Internal Med History&Physical ---
Date of Encounter: 12/14/16 Time of Encounter: 15:08 Assessment and Plan (1) Hypokalemia Current visit: Yes Status: Acute Patient with schizophrenia and psychosis with poor nutrition. Not taking his oral pills. We will place him in hospital for observation. We will give IV potassium supplements. Monitor potassium level and monitor heart rhythm with telemetry. Moderate risk for complications. (2) Schizophrenia, acute undifferentiated Current visit: Yes Status: Acute Continue Latuda. Will consult psychiatry for further recommendations and management. Geodon as needed for acute episodes of psychosis. (3) Nasal bones, closed fracture Current visit: Yes Status: Acute Bilateral nasal bone fractures following a recent fall. No obstruction to airway. We will arrange for follow up outpatient with ENT. Qualifiers: Encounter type: initial encounter Qualified Code(s): S02.2XXA - Fracture of nasal bones, initial encounter for closed fracture Internal Medicine - H&P: HPI Chief complaint: Hypokalemia Admitted From: Emergency Dept Plans for Post Hospital Care: Home History of present illness: Mr. Dash is a 36 year old male with history of schizophrenia was admitted to psych unit for acute psychosis and acute schizophrenia. He is discharged from the medical service after being admitted with acute metabolic encephalopathy. There was concern for neuroleptic malignant syndrome. After the patient was medically stabilized, he was transferred to psychiatric unit for admission to treat schizophrenia. During his stay there, he had a fall yesterday with injury to his head. CT scan of the head showed he also had a low laceration wound to his forehead that does not require any sutures per surgery and he has Steri-Strips placed over it. Today his labs showed a potassium level of 2.5 and as such medicine service was consulted. Patient has had chronic low potassium that has been supplemented with IV potassium since beginning of this month. He has poor appetite and is not eating much. Past Med Surg Social Fam HX - Past Medical History Source: old records reviewed Medical history: GERD, seizures, other Psychiatric history: anxiety, bipolar, depression, previous psychiatric hospitalization, other - Past Surgical History Surgical History: colectomy, other - Social History Smoking Status: Current every day smoker Smokeless Tobacco Status: No Alcohol use: none Drug use: none - Family History Mother Adopted: No Family Member Ethnicity: Non- Living Status: Still Living Father Adopted: No Family Member Ethnicity: Non- Living Status: Still Living Hx Family Cardiac Disorders: Yes (heart stent) Hx Family Respiratory Disorders: Yes (copd) Hx Family Endocrine Disorder: Yes (diabetes) Internal Medicine - H&P: Meds CloNIDine HCl 0.1 mg PO TID PRN #15 tablet 12/14/16 [Rx] LORazepam [Ativan] 1 mg IM Q4HR PRN 30 Days 12/14/16 [Rx] Loratadine [Claritin] 10 mg PO DAILY #15 tablet 12/14/16 [Rx] Lurasidone [Latuda] 20 mg PO BID #30 tablet 12/14/16 [Rx] Nicotine Patch [Nicoderm] 21 mg TD DAILY #15 patch.td24 12/14/16 [Rx] Potassium Citrate [Urocit-K] 10 meq PO HS #15 tablet.er 12/14/16 [Rx] Ziprasidone injection [Geodon] 20 mg IM Q4H PRN #15 vial 12/14/16 [Rx] Allergies haloperidol [From Haldol] Allergy (Verified 12/14/16 00:06) See Comments Requested by psychiatrist to be listed as an allergy at this time due to disease process. milk Allergy (Verified 12/13/16 08:38) Diarrhea Pt's sister states that it is when patient drinks large amounts of milk. He eats yogurt at home. risperidone [From Risperdal] Allergy (Verified 12/14/16 00:06) See Comments Requested by psychiatrist to be listed as an allergy at this time due to disease process All Systems PM: A 10-system review of systems was performed and is negative for pertinent findings except as documented above in the HPI. - Constitutional Constitutional: no chills, no fever(s), no night sweats - EENT Eyes: no change in vision, no discharge, no pain, no photophobia Ears: no ear discharge, no ear pain, no tinnitus Nose, mouth and throat: no dysphagia, no nasal discharge, no neck pain, no sore throat - Cardiovascular Cardiovascular ROS IM: no chest pain, no diaphoresis, no dyspnea, no lightheadedness, no palpitations, no syncope - Respiratory Respiratory: no cough, no dyspnea, no wheezing, no excessive phlegm production - Gastrointestinal Gastrointestinal: abdominal pain, no diarrhea, no hematemesis, no hematochezia, no melena, no nausea, no vomiting - Musculoskeletal Musculoskeletal ROS IM: no numbness, no tingling - Integumentary Integumentary IM: no rash, no unusual bruising - Neurological Neurological ROS: no confusion, no convulsions, no focal weakness, no numbness, no tingling, no tremor(s) - Hematologic/Lymphatic Hematologic/Lymphatic: no easy bruising - Constitutional General appearance: Present: cooperative, A&O X 1, underweight - Head Head exam: Present: normocephalic Additional comments: Bandage placed over forehead laceration wound - Eye Eye exam: Present: EOMI, PERRL, conjuntiva pink, sclera anicteric - ENT Additional comments: Swelling present over nasal bones - Neck Neck exam general surgery: Present: supple, trachea midline. Absent: lymphadenopathy - Respiratory Respiratory exam: Present: CTAB. Absent: accessory muscle use, rales, rhonchi, wheezes - Cardiovascular Cardiovascular exam: Present: RRR, +S1, +S2. Absent: diastolic murmur, gallop, rubs, systolic murmur - GI/Abdominal GI/Abdominal exam: Present: normal bowel sounds, soft, no peritoneal signs. Absent: distended, tenderness - Extremities Exam Extremities exam: Present: warm, radial pulses palpable and symetrical. Absent : calf tenderness, cyanotic, pedal edema - Neurological Exam Neurological exam: Present: no focal deficits. Absent: facial droop, speech deficit - Skin Skin exam: Present: dry, intact Internal Med - H&P Results - Labs Labs: Potassium 2.5 - Attending Attestation This document has been at least partially created by [employer] voice recognition technology by Dr. Chauhan. Errors in grammar, wording or other phrases may exist. If errors are found after the documentation is signed, they will be addressed individually in the addendum section of this document when appropriate.
[2016-12-14] MEDS: Lurasidone 20 MG TABLET PO SCH (17:19)
[2016-12-14] MEDS: 0.9 % Sodium Chloride w KCl 20 MEQ/1,000 ML MLS IVC SCH ×2 (18:02→19:52)
[2016-12-14] MEDS ORDERED: *HR* LORazepam 1 MG TABLET PO ONE (23:15)
[2016-12-15] MEDS: 0.9 % Sodium Chloride w KCl 20 MEQ/1,000 ML MLS IVC SCH ×4 (04:17→22:30)
[2016-12-15 06:29] LABS: BUN/Creatinine Ratio 10 (6-26); Blood Urea Nitrogen 6 mg/dL (8-26); Calcium 7.5 mg/dL (8.6-10.8); Carbon Dioxide 22 mEq/L (19-29); Chloride 106 mEq/L (98-109); Glucose 129 mg/dL (70-99); Osmolality,Calculated 285 (280-300); Potassium 2.6 mEq/L (3.5-4.5); Sodium 138 mEq/L (136-145); eGFR For African Americans > 60 (> 60); eGFR For Non-African Americans > 60 (> 60)
[2016-12-15] MEDS: Lurasidone 20 MG TABLET PO SCH ×2 (09:28→16:49)
[2016-12-15] MEDS: Nicotine 21 MG PATCH.TD24 TD SCH (09:29)
[2016-12-15] MEDS: Loratadine 10 MG TABLET PO SCH (09:29)
--- NOTE | 2016-12-15 11:20 | Consult Note ---
Date of Encounter: 12/15/16 Time of Encounter: 11:13 Assessment & Recommendation (1) Schizophrenia in partial remission with history of multiple episodes Current visit: Yes Status: Acute Assessment & Recommendation: It is recommended that further escalation of Latuda dosage to the target goal of clinical response be only done once he is medically stable and his delerium has resolved so that the response to treatment can be meaningfully observed and there is no confusion b/w his delerium and medication side effects. Thanks for the opportunity to participate in the care of this challenging case. History of Present Illness Requesting Physician: Sachi Suárez CNP History of present illness: Mr. 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 He was transferred to Psychitry service after medical treatment but it appeared that he still had persistent hypertension and hypokalemia and ongoing delerium. On 12/14 his stat K was 2.5 meq/L and he was transferred back to medical service for further treatment. Given the fact that pt's psychiatric baseline has become quite poor after he stopped responding to Clozaril last year, it is recommended that his antipsychotic medication be titrated upwards only after he is clearly come out of the delerium and metabolically stabilized. He was started on Latuda 20 mg bid and his target dose will likely be 120 or 160 mg/d. However medical stability is the prerequisite for further escalation of the dose so as to avoid confusion with medication side effects and his delerium. CC: Sachi Suárez CNP Past Med Surg Social Fam HX - Past Medical History Medical history: GERD, seizures, other - Past Surgical History Surgical History: colectomy, other - Social History Smoking Status: Current every day smoker Smokeless Tobacco Status: No Alcohol use: none Drug use: none - Family History Mother Adopted: No Family Member Ethnicity: Non- Living Status: Still Living Father Adopted: No Family Member Ethnicity: Non- Living Status: Still Living Hx Family Cardiac Disorders: Yes (heart stent) Hx Family Respiratory Disorders: Yes (copd) Hx Family Endocrine Disorder: Yes (diabetes) Medications & Allergies CloNIDine HCl 0.1 mg PO TID PRN #15 tablet 12/14/16 [Rx] LORazepam [Ativan] 1 mg IM Q4HR PRN 30 Days 12/14/16 [Rx] Loratadine [Claritin] 10 mg PO DAILY #15 tablet 12/14/16 [Rx] Lurasidone [Latuda] 20 mg PO BID #30 tablet 12/14/16 [Rx] Nicotine Patch [Nicoderm] 21 mg TD DAILY #15 patch.td24 12/14/16 [Rx] Potassium Citrate [Urocit-K] 10 meq PO HS #15 tablet.er 12/14/16 [Rx] Ziprasidone injection [Geodon] 20 mg IM Q4H PRN #15 vial 12/14/16 [Rx] Allergies haloperidol [From Haldol] Allergy (Verified 12/14/16 00:06) See Comments Requested by psychiatrist to be listed as an allergy at this time due to disease process. milk Allergy (Verified 12/13/16 08:38) Diarrhea Pt's sister states that it is when patient drinks large amounts of milk. He eats yogurt at home. risperidone [From Risperdal] Allergy (Verified 12/14/16 00:06) See Comments Requested by psychiatrist to be listed as an allergy at this time due to disease process Results - Vital Signs Vital signs: Temp Pulse Resp BP Pulse Ox 98.4 F 86 20 129/78 96 12/15/16 09:02 12/15/16 09:02 12/15/16 09:02 12/15/16 09:02 12/15/16 09:15 - Labs Labs: Laboratory Last Values Sodium 138 mEq/L (136-145) 12/15/16 04:23 Potassium 2.6 mEq/L (3.5-4.5) L 12/15/16 04:23 Chloride 106 mEq/L (98-109) 12/15/16 04:23 Carbon Dioxide 22 mEq/L (19-29) 12/15/16 04:23 BUN 6 mg/dL (8-26) L 12/15/16 04:23 Creatinine 0.62 mg/dL (0.72-1.25) L 12/15/16 04:23 Est GFR ( Amer) > 60 (> 60) 12/15/16 04:23 Est GFR (Non-Af Amer) > 60 (> 60) 12/15/16 04:23 BUN/Creatinine Ratio 10 (6-26) 12/15/16 04:23 Glucose 129 mg/dL (70-99) H 12/15/16 04:23 Calculated Osmolality 285 (280-300) 12/15/16 04:23 Calcium 7.5 mg/dL (8.6-10.8) L 12/15/16 04:23 Consult Discharge Plan - Plan Referrals: NO,PCP [Primary Care Provider] -
[2016-12-15] MEDS: Ziprasidone injection 20 MG/ML VIAL IM PRN ×2 (12:26→16:50)
--- NOTE | 2016-12-15 15:27 | Internal Med Progress Note ---
Date of Encounter: 12/15/16 Time of Encounter: 12:00 - Assessment and plan (1) Altered mental status Current Visit: Yes Status: Acute Assessment and plan: Patient is experiencing delirium. He does follow commands, however he does not answer questions appropriately. Is agitated and restless and has assisted her to avoid another follow. Patient specifically requesting for me to help improve and asking for spiritual food. We will continue to monitor the patient and keep the sitter at the bedside until it was not needed. Patient has had poor by mouth intake related to his schizophrenia and psychosis and has not been taking his medications. He had multiple imaging studies since he has been admitted over the last few days. Head CT done on 12/13, after his fall, no acute intracranial hemorrhage mass effect or midline shift no extra-axial fluid collection no evidence of hydrocephalus. He does have age indeterminate nasal bone fractures from this same CT on December 13. Sitter Monitor patient's condition Monitor labs and vital signs Qualifiers: Altered mental status type: unspecified Qualified Code(s): R41.82 - Altered mental status, unspecified (2) Hypokalemia Current Visit: Yes Status: Acute Assessment and plan: Initial potassium 2.5. He is getting 20meq in 1 liter, as well as po. Will continue to infuse and repeat lab at 1600. Monitor labs. (3) Schizophrenia Current Visit: No Status: Chronic Qualifiers: Schizophrenia type: unspecified Qualified Code(s): F20.9 - Schizophrenia, unspecified - Time Spent With Patient less than 15 minutes - Subjective Interval history: Patient was admitted yesterday for hypokalemia from inpatient psychiatric unit. He was admitted to inpatient psych unit with acute psychosis and schizophrenia , after he was admitted to the hospitalist with acute metabolic encephalopathy. Yesterday while on one a he had a fall with a head injury, CT scan showed the laceration and negative for any intracranial abnormality or injury. He does have bandage to his head covering the laceration from the fall. He was admitted back to medicine for hypokalemia with potassium level 2.5. During exam patient keeps saying, "help me poop", and asking for spiritual food. He is unable to quantify those statements at all. Patient does have a sitter. He is unable to answer questions. - Constitutional Vitals: Temp Pulse Resp BP Pulse Ox 98.5 F 82 18 146/93 99 12/15/16 12:52 12/15/16 12:52 12/15/16 12:52 12/15/16 12:52 12/15/16 12:52 General appearance: Present: cooperative, A&O X 1, underweight - Head Additional comments: Marcelle has dried blood around bilateral nares, and bandage to his head covering laceration from fall yesterday. - Eye Eye exam: Present: normal appearance, conjuntiva pink - ENT ENT exam: Present: mucous membranes moist, normal exam - Neck Neck exam general surgery: Absent: lymphadenopathy, tenderness - Respiratory Respiratory exam: Present: CTAB. Absent: chest wall tenderness, wheezes - Cardiovascular Cardiovascular exam: Present: RRR, +S1, +S2 - GI/Abdominal GI/Abdominal exam: Present: normal bowel sounds, soft. Absent: guarding, hepatomegaly, tenderness - Extremities Exam Extremities exam: Present: full ROM, normal inspection, warm, radial pulses palpable and symetrical. Absent: pedal edema, tenderness - Back Exam Back exam: Present: full ROM. Absent: CVA tenderness (L), CVA tenderness (R) - Neurological Exam Neurological exam: Present: alert, altered, strengths equal and symetr throughout. Absent: no focal deficits Additional comments: Patient does follow commands, however does not always answer questions appropriately. He appears restless and agitated. He is attempting to get out of bed repeatedly and has a sitter. Internal Medicine: Result - Labs CBC & Chem 7: 12/15/16 04:23 Labs: BMP 12/15/16 04:23 Sodium 138 Potassium 2.6 L Chloride 106 Carbon Dioxide 22 BUN 6 L Creatinine 0.62 L Glucose 129 H Calcium 7.5 L - Impressions Impressions Nasal Bones X-Ray 12/15/16 14:00 IMPRESSION: Nondisplaced left nasal fracture. D/ / 12/15/2016 14:41:06 Maximino Ppo MD / lo Interpreting Provider: Maximino Pop MD Consult Discharge Plan - Plan Referrals: NO,PCP [Primary Care Provider] -
[2016-12-15] MEDS ORDERED: *HR* LORazepam 2 MG/ML VIAL IVP ONE (21:41)
[2016-12-15] MEDS ORDERED: *HR* LORazepam 2 MG/ML VIAL ONE (21:43)
[2016-12-15] MEDS ORDERED: Water for inj. (sterile) 10 ML IV ONE (21:43)
[2016-12-16] MEDS: Ziprasidone injection 20 MG/ML VIAL IM PRN ×4 (04:44→22:30)
[2016-12-16 05:37] LABS: Basophils % 0.3 %; Eosinophils % 0.3 %; Hematocrit 31.8 % (37.5-50.1); Hemoglobin 10.1 g/dL (12.9-16.9); Immature Granulocytes % 0.5 % (0-4); Lymphocytes # 0.9 K/mcL (0.6-4.6); Lymphocytes % 15.2 %; Mean Corpuscular HGB Conc 31.8 g/dL (31.6-35.5); Mean Corpuscular Hemoglobin 27.5 pg (28.0-33.3); Mean Corpuscular Volume 86.6 fL (83.0-100.0); Mean Platelet Volume 8.8 fL (9.4-12.4); Monocytes # 0.5 K/mcL (0.0-1.3); Monocytes % 9.2 %; Neutrophils # 4.3 K/mcL (1.6-8.9); Platelet Count 242 K/mcL (140-400); Red Blood Count 3.67 M/mcL (4.19-5.50); Red Cell Distribution Width 15.5 % (11.5-14.5); Segmented Neutrophils % 74.5 %
[2016-12-16 05:52] LABS: BUN/Creatinine Ratio 6 (6-26); Calcium 7.2 mg/dL (8.6-10.8); Carbon Dioxide 24 mEq/L (19-29); Chloride 109 mEq/L (98-109); Glucose 99 mg/dL (70-99); Osmolality,Calculated 285 (280-300); Potassium 2.9 mEq/L (3.5-4.5); Sodium 139 mEq/L (136-145); eGFR For African Americans > 60 (> 60); eGFR For Non-African Americans > 60 (> 60)
[2016-12-16 05:55] LABS: Blood Urea Nitrogen 3 mg/dL (8-26)
[2016-12-16] MEDS: 0.9 % Sodium Chloride w KCl 20 MEQ/1,000 ML MLS IVC SCH (06:21)
[2016-12-16 09:17] LABS: Alkaline Phosphatase 70 Units/L (38-126); Creatine Kinase 165 Units/L (30-200); Lactate Dehydrogenase 240 Units/L (159-327); Magnesium 1.2 mg/dL (1.6-2.6)
[2016-12-16] MEDS: Nicotine 21 MG PATCH.TD24 TD SCH (09:19)
[2016-12-16] MEDS: Lurasidone 20 MG TABLET PO SCH ×2 (09:19→16:20)
[2016-12-16] MEDS: Loratadine 10 MG TABLET PO SCH (09:19)
[2016-12-16] MEDS: 0.9 % Sodium Chloride 1,000 ML IVC SCH (16:20)
--- NOTE | 2016-12-16 17:11 | Internal Med Progress Note ---
Date of Encounter: 12/16/16 Time of Encounter: 09:45 - Assessment and plan (1) Altered mental status Current Visit: Yes Status: Acute Assessment and plan: Family visited today and since he states that patient is back to baseline for when he is not on his medications. They state that his behavior is normal. Patient had been worked up for neuroleptic malignant syndrome while he was on [facility]. he has no muscular rigidity or hyperthermia. He is not tachycardic has no hypertension or tachypnea. His alkaline phosphatase CK lactate dehydrogenase are all within normal limits. We will continue to monitor. Sitter at bedside. Qualifiers: Altered mental status type: unspecified Qualified Code(s): R41.82 - Altered mental status, unspecified (2) Hypokalemia Current Visit: Yes Status: Acute Assessment and plan: Patient has been receiving IV potassium, as well as by mouth potassium. Today I switched him to K rider, 40meq, and the by mouth potassium as well. Pending potassium result. Patient is not having nausea vomiting or diarrhea excessive urine output or sweating. He has been getting Geodon and was to do however neither of those hypokalemia as a side effect. We will continue to monitor. He is on a night monitor as well. Magnesium level is 1.2.. 1900- Potassium is now WNL at 3.5. Will order another k rider for overnight. I did make the call to [facility] to let them know that potassium is WnL and that he is ready to be seen by them. (3) Schizophrenia Current Visit: No Status: Chronic Assessment and plan: Patient is on low dose of Latuda. No titration will take place currently until he is medically stable. Qualifiers: Schizophrenia type: unspecified Qualified Code(s): F20.9 - Schizophrenia, unspecified - Time Spent With Patient 25 - 35 minutes - Subjective Interval history: Patient is sitting up in bed. He is following commands. He states that his hands hurt, when asked how long that spent going on he says for years. His mother and sister visited today and he seemed to be slightly more agitated with them present. For the most part, he answers questions appropriately. He denies pain, nausea or vomiting, he states that he is not hungry, sitter at bedside says that he is eating proximally 40% of his tray. - Constitutional Vitals: Temp Pulse Resp BP Pulse Ox 98.0 F 63 17 120/79 98 12/16/16 11:20 12/16/16 11:20 12/16/16 11:20 12/16/16 11:20 12/16/16 11:20 General appearance: Present: cooperative, A&O X 1, underweight - Head Head exam: Present: normal inspection Additional comments: Despite nasal bone fractures patient has no epistaxis or obvious deformity or bruising. - Eye Eye exam: Present: normal appearance, PERRL, conjuntiva pink. Absent: nystagmus , periorbital swelling - ENT ENT exam: Present: mucous membranes moist, normal exam - Neck Neck exam general surgery: Present: normal inspection. Absent: lymphadenopathy , tenderness - Respiratory Respiratory exam: Present: CTAB. Absent: chest wall tenderness, decreased breath sounds, rales, respiratory distress, rhonchi, stridor, wheezes, tachypnea - Cardiovascular Cardiovascular exam: Present: RRR, +S1, +S2. Absent: diastolic murmur, systolic murmur - GI/Abdominal GI/Abdominal exam: Present: normal bowel sounds, soft. Absent: splenomegaly - Extremities Exam Extremities exam: Present: pedal edema, tenderness, warm, radial pulses palpable and symetrical - Neurological Exam Neurological exam: Present: alert, oriented X3, strengths equal and symetr throughout. Absent: facial droop, speech deficit Internal Medicine: Result - Labs CBC & Chem 7: 12/16/16 05:24 12/16/16 18:12 Labs: Short CBC 12/16/16 Range/Units 05:24 WBC 5.8 (4.3-11.1) K/mcL Hgb 10.1 L (12.9-16.9) g/dL Hct 31.8 L (37.5-50.1) % Plt Count 242 (140-400) K/mcL Neutrophils # 4.3 (1.6-8.9) K/mcL BMP 12/16/16 05:24 Sodium 139 Potassium 2.9 L Chloride 109 Carbon Dioxide 24 BUN 3 L Creatinine 0.53 L Glucose 99 Calcium 7.2 L Liver Function 12/16/16 Range/Units 05:24 Alkaline Phosphatase 70 (38-126) Units/L - Impressions Impressions Nasal Bones X-Ray 12/15/16 14:00 IMPRESSION: Nondisplaced left nasal fracture. D/ / 12/15/2016 14:41:06 Maximino Pop MD / lo Interpreting Provider: Maximino Pop MD Consult Discharge Plan - Plan Referrals: NO,PCP [Primary Care Provider] -
[2016-12-16] MEDS ORDERED: *HR* LORazepam 2 MG/ML VIAL ONE (19:48)
[2016-12-16] MEDS: *HR* HYDROcodone/Acet 5/325 mg TABLET PO PRN (23:15)
[2016-12-17] MEDS: *HR* LORazepam 2 MG/ML VIAL IVP PRN ×4 (00:54→19:30)
[2016-12-17 06:46] LABS: Basophils % 0.3 %; Eosinophils % 0.6 %; Hematocrit 34.2 % (37.5-50.1); Hemoglobin 10.8 g/dL (12.9-16.9); Immature Granulocytes % 0.3 % (0-4); Lymphocytes # 1.4 K/mcL (0.6-4.6); Lymphocytes % 21.9 %; Mean Corpuscular HGB Conc 31.6 g/dL (31.6-35.5); Mean Corpuscular Hemoglobin 27.6 pg (28.0-33.3); Mean Corpuscular Volume 87.5 fL (83.0-100.0); Mean Platelet Volume 9.5 fL (9.4-12.4); Monocytes # 0.6 K/mcL (0.0-1.3); Monocytes % 9.8 %; Neutrophils # 4.2 K/mcL (1.6-8.9); Platelet Count 217 K/mcL (140-400); Red Blood Count 3.91 M/mcL (4.19-5.50); Red Cell Distribution Width 15.9 % (11.5-14.5); Segmented Neutrophils % 67.1 %
[2016-12-17 06:52] LABS: BUN/Creatinine Ratio 7 (6-26); Calcium 7.4 mg/dL (8.6-10.8); Carbon Dioxide 26 mEq/L (19-29); Chloride 108 mEq/L (98-109); Glucose 80 mg/dL (70-99); Magnesium 1.3 mg/dL (1.6-2.6); Osmolality,Calculated 286 (280-300); Sodium 140 mEq/L (136-145); eGFR For African Americans > 60 (> 60); eGFR For Non-African Americans > 60 (> 60)
[2016-12-17 06:53] LABS: Blood Urea Nitrogen 4 mg/dL (8-26)
[2016-12-17] MEDS: Lurasidone 20 MG TABLET PO SCH ×3 (08:22→20:53)
[2016-12-17] MEDS: Loratadine 10 MG TABLET PO SCH (08:22)
[2016-12-17] MEDS: Nicotine 21 MG PATCH.TD24 TD SCH (08:23)
[2016-12-17] MEDS: 0.9 % Sodium Chloride 1,000 ML IVC SCH ×2 (08:23→17:44)
[2016-12-17] MEDS: Ziprasidone injection 20 MG/ML VIAL IM PRN ×3 (10:18→20:53)
[2016-12-17] MEDS: *HR* HYDROcodone/Acet 5/325 mg TABLET PO PRN ×2 (10:26→18:56)
--- NOTE | 2016-12-17 13:45 | Consult Note ---
Date of Encounter: 12/17/16 Time of Encounter: 13:00 Assessment & Recommendation (1) Chronic undifferentiated schizophrenia Current visit: Yes Status: Acute Assessment & Recommendation: Recent labs WERE reviewed and case was discussed with medical team. We recommend: 1. Continue medical stabilization 2. No medication changes are recommended at this time 3. When patient is stabilized he can be discharged to the senior living and follow-up with his psychiatrist as outpatient 4. There are no acute psychiatric condition that will require inpatient treatment at this time Thank you for consultation History of Present Illness Patient: known to practice within the last 3 years Requesting Physician: Sachi Suárez CNP Reason for consult: Psychiatry follow-up for schizophrenia History of present illness: Mr. Dash is a 36 year old male was transferred to the medical floor for evaluation and treatment of hypokalemia and change of mental status. Patient is well known to me from consultation and psychiatric admission and notes were reviewed including recent labs and medications. Patient has a long history of psychiatric treatment for schizophrenia and from previous admission polypharmacy was reviewed and corrected. Psychiatric consultation was requested to recommend treatment plan and medication updates. On interview patient presented in a lethargic confused states and was not able to participate in interview or evaluation. CC: Sachi Suárez CNP Past Med Surg Social Fam HX - Past Medical History Medical history: GERD, seizures, other - Past Surgical History Surgical History: colectomy, other - Social History Smoking Status: Current every day smoker Smokeless Tobacco Status: No Alcohol use: none Drug use: none - Family History Mother Adopted: No Family Member Ethnicity: Non- Living Status: Still Living Father Adopted: No Family Member Ethnicity: Non- Living Status: Still Living Hx Family Cardiac Disorders: Yes (heart stent) Hx Family Respiratory Disorders: Yes (copd) Hx Family Endocrine Disorder: Yes (diabetes) Medications & Allergies CloNIDine HCl 0.1 mg PO TID PRN #15 tablet 12/14/16 [Rx] LORazepam [Ativan] 1 mg IM Q4HR PRN 30 Days 12/14/16 [Rx] Loratadine [Claritin] 10 mg PO DAILY #15 tablet 12/14/16 [Rx] Lurasidone [Latuda] 20 mg PO BID #30 tablet 12/14/16 [Rx] Nicotine Patch [Nicoderm] 21 mg TD DAILY #15 patch.td24 12/14/16 [Rx] Potassium Citrate [Urocit-K] 10 meq PO HS #15 tablet.er 12/14/16 [Rx] Ziprasidone injection [Geodon] 20 mg IM Q4H PRN #15 vial 12/14/16 [Rx] Allergies haloperidol [From Haldol] Allergy (Verified 12/14/16 00:06) See Comments Requested by psychiatrist to be listed as an allergy at this time due to disease process. milk Allergy (Verified 12/13/16 08:38) Diarrhea Pt's sister states that it is when patient drinks large amounts of milk. He eats yogurt at home. risperidone [From Risperdal] Allergy (Verified 12/14/16 00:06) See Comments Requested by psychiatrist to be listed as an allergy at this time due to disease process Mental Status Exam Patient orientation: Yes Person, Yes Place Level of alertness: Sedated, Other (Lethargic) Patient appearance: Disheveled, Malodorous Behavior: withdrawn, other (lethargic) Psychomotor activity: Normal Eye contact: Fleeting Contact Mood description: Anxious, Other ( confused) Affect description: blunted Speech pattern: Limited, Slurred Speech volume: Whispering Thought process: Slowed Thinking Thought content: No Suicidal ideation, No Homicidal ideation, No Overt delusions Perceptual disturbances: No Auditory hallucinations, No Visual hallucinations Attention span: Unable to Focus Memory description: Immediate Impaired, Recent Impaired Patient reliability: Not Reliable Historian Intelligence estimate: Below Average Judgment: Limited Insight: Partial Results - Vital Signs Vital signs: Temp Pulse Resp BP Pulse Ox 98.2 F 97 18 120/81 96 12/17/16 06:53 12/17/16 06:53 12/17/16 06:53 12/17/16 06:53 12/17/16 06:53 - Labs Labs: Laboratory Last Values WBC 6.2 K/mcL (4.3-11.1) 12/17/16 05:43 RBC 3.91 M/mcL (4.19-5.50) L 12/17/16 05:43 Hgb 10.8 g/dL (12.9-16.9) L 12/17/16 05:43 Hct 34.2 % (37.5-50.1) L 12/17/16 05:43 MCV 87.5 fL (83.0-100.0) 12/17/16 05:43 MCH 27.6 pg (28.0-33.3) L 12/17/16 05:43 MCHC 31.6 g/dL (31.6-35.5) 12/17/16 05:43 RDW 15.9 % (11.5-14.5) H 12/17/16 05:43 Plt Count 217 K/mcL (140-400) 12/17/16 05:43 MPV 9.5 fL (9.4-12.4) 12/17/16 05:43 Immature Gran % 0.3 % (0-4) 12/17/16 05:43 Seg Neutrophils % 67.1 % 12/17/16 05:43 Lymphocytes % 21.9 % 12/17/16 05:43 Monocytes % 9.8 % 12/17/16 05:43 Eosinophils % 0.6 % 12/17/16 05:43 Basophils % 0.3 % 12/17/16 05:43 Neutrophils # 4.2 K/mcL (1.6-8.9) 12/17/16 05:43 Lymphocytes # 1.4 K/mcL (0.6-4.6) 12/17/16 05:43 Monocytes # 0.6 K/mcL (0.0-1.3) 12/17/16 05:43 Eosinophils # 0.0 K/mcL (0.0-0.6) 12/17/16 05:43 Basophils # 0.0 K/mcL (0.0-0.2) 12/17/16 05:43 Sodium 140 mEq/L (136-145) 12/17/16 05:43 Potassium 4.0 mEq/L (3.5-4.5) 12/17/16 05:43 Chloride 108 mEq/L (98-109) 12/17/16 05:43 Carbon Dioxide 26 mEq/L (19-29) 12/17/16 05:43 BUN 4 mg/dL (8-26) L 12/17/16 05:43 Creatinine 0.60 mg/dL (0.72-1.25) L 12/17/16 05:43 Est GFR ( Amer) > 60 (> 60) 12/17/16 05:43 Est GFR (Non-Af Amer) > 60 (> 60) 12/17/16 05:43 BUN/Creatinine Ratio 7 (6-26) 12/17/16 05:43 Glucose 80 mg/dL (70-99) 12/17/16 05:43 Calculated Osmolality 286 (280-300) 12/17/16 05:43 Calcium 7.4 mg/dL (8.6-10.8) L 12/17/16 05:43 Magnesium 1.3 mg/dL (1.6-2.6) L 12/17/16 05:43 Alkaline Phosphatase 70 Units/L (38-126) 12/16/16 05:24 Lactate Dehydrogenase 240 Units/L (159-327) 12/16/16 05:24 Creatine Kinase 165 Units/L (30-200) 12/16/16 05:24 Consult Discharge Plan - Plan Referrals: NO,PCP [Primary Care Provider] -
[2016-12-17] MEDS ORDERED: Water for inj. (sterile) 10 ML IV ONE (14:33)
--- NOTE | 2016-12-17 19:11 | Internal Med Progress Note ---
Date of Encounter: 12/17/16 Time of Encounter: 21:06 - Assessment and plan (1) Hypokalemia Current Visit: Yes Status: Acute (2) Encephalopathy chronic Current Visit: No Status: Chronic (3) Chronic undifferentiated schizophrenia Current Visit: Yes Status: Acute Assessment and plan: Metabolic encephalopathy: Patienta dmitted with AMS, which has currently improved and pt more or less tobaseline as per family. Infectious work up negative. He has been worked up for Neuroleptic malignant syndrome which has been negative. Hypokalemia: In setting of hypomagnesemia. Replete magnesium and Potassium, monitor labs. Scizophrenia: Was under psych care, continue Latuda. Psych following. - Time Spent With Patient 25 - 35 minutes - Subjective Interval history: seen and examined at bedside. He is alert and oriented and denies any complaints. - Constitutional Vitals: Temp Pulse Resp BP Pulse Ox 98.2 F 97 18 120/81 96 12/17/16 06:53 12/17/16 06:53 12/17/16 06:53 12/17/16 06:53 12/17/16 06:53 General appearance: Present: cooperative, A&O X 1, underweight - Head Head exam: Present: atraumatic, normocephalic - Eye Eye exam: Present: PERRL, conjuntiva pink, sclera anicteric Pupils: Present: PERRL - Neck Neck exam general surgery: Present: supple, trachea midline. Absent: lymphadenopathy - Respiratory Respiratory exam: Present: CTAB. Absent: accessory muscle use, rales, rhonchi, wheezes - Cardiovascular Cardiovascular exam: Present: RRR, +S1, +S2. Absent: diastolic murmur, gallop, rubs, systolic murmur - GI/Abdominal GI/Abdominal exam: Present: normal bowel sounds, soft, no peritoneal signs. Absent: distended, tenderness - Extremities Exam Extremities exam: Present: warm, radial pulses palpable and symetrical. Absent : calf tenderness, cyanotic, pedal edema - Neurological Exam Neurological exam: Present: CN II-XII intact, oriented X3, no focal deficits. Absent: pronater drift, facial droop, speech deficit - Skin Skin exam: Present: dry, intact Internal Medicine: Result - Labs CBC & Chem 7: 12/17/16 05:43 12/17/16 05:43 Labs: Short CBC 12/17/16 Range/Units 05:43 WBC 6.2 (4.3-11.1) K/mcL Hgb 10.8 L (12.9-16.9) g/dL Hct 34.2 L (37.5-50.1) % Plt Count 217 (140-400) K/mcL Neutrophils # 4.2 (1.6-8.9) K/mcL BMP 12/17/16 05:43 Sodium 140 Potassium 4.0 Chloride 108 Carbon Dioxide 26 BUN 4 L Creatinine 0.60 L Glucose 80 Calcium 7.4 L Consult Discharge Plan - Plan Referrals: NO,PCP [Primary Care Provider] -
[2016-12-18] MEDS: *HR* HYDROcodone/Acet 5/325 mg TABLET PO PRN ×2 (05:36→12:20)
[2016-12-18] MEDS: Nicotine 21 MG PATCH.TD24 TD SCH (08:05)
[2016-12-18] MEDS: Loratadine 10 MG TABLET PO SCH (08:05)
[2016-12-18] MEDS: Lurasidone 20 MG TABLET PO SCH ×2 (08:05→17:37)
[2016-12-18] MEDS: Ziprasidone injection 20 MG/ML VIAL IM PRN (08:06)
[2016-12-18] MEDS: 0.9 % Sodium Chloride 1,000 ML IVC SCH (16:06)
[2016-12-18] MEDS: *HR* LORazepam 2 MG/ML VIAL IVP PRN (17:37)
--- NOTE | 2016-12-18 18:55 | Internal Med Progress Note ---
Date of Encounter: 12/18/16 Time of Encounter: 18:53 - Assessment and plan (1) Hypokalemia Current Visit: Yes Status: Acute (2) Encephalopathy chronic Current Visit: No Status: Chronic (3) Chronic undifferentiated schizophrenia Current Visit: Yes Status: Acute Assessment and plan: Metabolic encephalopathy: Patient admitted with AMS, which has currently improved and pt more or less to baseline as per family. Infectious work up negative. He has been worked up for Neuroleptic malignant syndrome which has been negative. Psych has evaluated the pt and recommends that he doesn't require any inpatient psych admission at this time. Hypokalemia: In setting of hypomagnesemia. Replete magnesium and Potassium, monitor labs. Scizophrenia: Was under psych care, continue Latuda. Psych following. Has episodes of agitation requiring sitter. On Geodon 20 mg IM Q4H ad Lorazepam. Increase frequency of Lorazepam to Q4H PRN Discharge Planning: Awaiting d/c to SNF when clinically better - Time Spent With Patient 25 - 35 minutes - Subjective Interval history: seen and examined at bedside. He is alert and oriented. Noticed to have episodes of agitation - Constitutional Vitals: Temp Pulse Resp BP Pulse Ox 98.0 F 83 17 115/75 97 12/18/16 11:52 12/18/16 11:52 12/18/16 11:52 12/18/16 11:52 12/18/16 11:52 General appearance: Present: cooperative, A&O X 1, underweight - Head Head exam: Present: atraumatic, normocephalic - Eye Eye exam: Present: PERRL, conjuntiva pink, sclera anicteric Pupils: Present: PERRL - Neck Neck exam general surgery: Present: supple, trachea midline. Absent: lymphadenopathy - Respiratory Respiratory exam: Present: CTAB. Absent: accessory muscle use, rales, rhonchi, wheezes - Cardiovascular Cardiovascular exam: Present: RRR, +S1, +S2. Absent: diastolic murmur, gallop, rubs, systolic murmur - GI/Abdominal GI/Abdominal exam: Present: normal bowel sounds, soft, no peritoneal signs. Absent: distended, tenderness - Extremities Exam Extremities exam: Present: warm, radial pulses palpable and symetrical. Absent : calf tenderness, cyanotic, pedal edema - Neurological Exam Neurological exam: Present: CN II-XII intact, oriented X3, no focal deficits. Absent: pronater drift, facial droop, speech deficit - Skin Skin exam: Present: dry, intact Internal Medicine: Result - Labs CBC & Chem 7: 12/17/16 05:43 12/17/16 05:43 Consult Discharge Plan - Plan Referrals: NO,PCP [Primary Care Provider] -
[2016-12-18] MEDS: *HR* LORazepam 1 MG TABLET PO PRN (20:36)
[2016-12-19] MEDS: *HR* LORazepam 1 MG TABLET PO PRN (02:30)
[2016-12-19 04:25] LABS: Basophils % 0.6 %; Eosinophils # 0.1 K/mcL (0.0-0.6); Eosinophils % 1.7 %; Hematocrit 32.6 % (37.5-50.1); Hemoglobin 10.4 g/dL (12.9-16.9); Immature Granulocytes % 0.2 % (0-4); Lymphocytes # 1.3 K/mcL (0.6-4.6); Lymphocytes % 23.1 %; Mean Corpuscular HGB Conc 31.9 g/dL (31.6-35.5); Mean Corpuscular Hemoglobin 27.8 pg (28.0-33.3); Mean Corpuscular Volume 87.2 fL (83.0-100.0); Mean Platelet Volume 9.8 fL (9.4-12.4); Monocytes # 0.6 K/mcL (0.0-1.3); Monocytes % 10.3 %; Neutrophils # 3.5 K/mcL (1.6-8.9); Platelet Count 172 K/mcL (140-400); Red Blood Count 3.74 M/mcL (4.19-5.50); Red Cell Distribution Width 15.8 % (11.5-14.5); Segmented Neutrophils % 64.1 %
[2016-12-19 04:55] LABS: BUN/Creatinine Ratio 11 (6-26); Blood Urea Nitrogen 6 mg/dL (8-26); Calcium 7.8 mg/dL (8.6-10.8); Carbon Dioxide 26 mEq/L (19-29); Chloride 106 mEq/L (98-109); Glucose 83 mg/dL (70-99); Osmolality,Calculated 285 (280-300); Potassium 3.8 mEq/L (3.5-4.5); Sodium 139 mEq/L (136-145); eGFR For African Americans > 60 (> 60); eGFR For Non-African Americans > 60 (> 60)
[2016-12-19] MEDS: Loratadine 10 MG TABLET PO SCH (09:17)
[2016-12-19] MEDS: Nicotine 21 MG PATCH.TD24 TD SCH (09:17)
[2016-12-19] MEDS: Lurasidone 20 MG TABLET PO SCH ×2 (09:17→17:56)
--- NOTE | 2016-12-19 15:58 | Psychiatry Progress Note ---
Date of Encounter: 12/19/16 Time of Encounter: 15:00 Subjective Interval history: Patient was seen for follow-up consultation with our social professionals from . recommendation and follow-up plans were discussed with the attending physician and social professionals and nurse taking care of the patient and it was explained that restarting patient on psychotropic medication should be done in a stepwise fashion in consideration of his significant medical condition and hospitalization for the past several weeks. On interview with the patient was alert and able to answer questions appropriately making good eye contact and fully oriented and presents well and not showing any agitation or irritability there was no evidence of any hallucinations or suicidal. Objective: Exam Patient orientation: Yes Person, Yes Place Level of alertness: Sedated, Other (Lethargic) Patient appearance: Disheveled, Malodorous Behavior: withdrawn, other (lethargic) Psychomotor activity: Normal Eye contact: Fleeting Contact Mood description: Anxious, Other ( confused) Affect description: blunted Speech pattern: Limited, Slurred Speech volume: Whispering Thought process: Slowed Thinking Thought content: No Suicidal ideation, No Homicidal ideation, No Overt delusions Perceptual disturbances: No Auditory hallucinations, No Visual hallucinations Judgment: Limited Insight: Partial Results - Vital Signs Vital Signs: Temp Pulse Resp BP Pulse Ox 98.6 F 92 15 106/69 98 12/19/16 10:40 12/19/16 10:40 12/19/16 10:40 12/19/16 10:40 12/19/16 10:40 - Labs Labs: Laboratory Results - last 24 hr 12/19/16 12/19/16 04:01 04:01 WBC 5.5 RBC 3.74 L Hgb 10.4 L Hct 32.6 L MCV 87.2 MCH 27.8 L MCHC 31.9 RDW 15.8 H Plt Count 172 MPV 9.8 Immature Gran % 0.2 Seg Neutrophils % 64.1 Lymphocytes % 23.1 Monocytes % 10.3 Eosinophils % 1.7 Basophils % 0.6 Neutrophils # 3.5 Lymphocytes # 1.3 Monocytes # 0.6 Eosinophils # 0.1 Basophils # 0.0 Sodium 139 Potassium 3.8 Chloride 106 Carbon Dioxide 26 BUN 6 L Creatinine 0.56 L Est GFR ( Amer) > 60 Est GFR (Non-Af Amer) > 60 BUN/Creatinine Ratio 11 Glucose 83 Calculated Osmolality 285 Calcium 7.8 L - Impressions ITS Impressions Nasal Bones X-Ray 12/15/16 14:00 IMPRESSION: Nondisplaced left nasal fracture. D/ / 12/15/2016 14:41:06 Maximino Pop MD / bcafer Interpreting Provider: Maximino Pop MD Assessment and Plan (1) Chronic undifferentiated schizophrenia Current visit: Yes Status: Acute Plan: Continue hospitalization, Close observation, Suicide Precautions per unit protocol, Encourage participation in unit milieu, Group Therapy, Monitor sleep, Monitor appetite Additional Plan: Recommendations: 1. When patient is medically stabilized he can be discharged home or facility as planned 2. His psychiatric condition and medication should be supervised by her psychiatrists outside the hospital 3. There are no acute psychiatric condition that required inpatient treatment at this time. Thank you for the consultation Consult Discharge Plan - Plan Referrals: NO,PCP [Primary Care Provider] -
--- NOTE | 2016-12-19 18:47 | Internal Med Progress Note ---
Date of Encounter: 12/19/16 Time of Encounter: 18:32 - Assessment and plan (1) Hypokalemia Current Visit: Yes Status: Acute (2) Encephalopathy chronic Current Visit: No Status: Chronic (3) Chronic undifferentiated schizophrenia Current Visit: Yes Status: Acute Assessment and plan: Metabolic encephalopathy: Patient admitted with AMS, which has currently improved and pt more or less to baseline as per family. Infectious work up negative. He has been worked up for Neuroleptic malignant syndrome which has been negative. Psych has evaluated the pt and recommends that he doesn't require any inpatient psych admission at this time. Hypokalemia: In setting of hypomagnesemia. Replete magnesium and Potassium, monitor labs. Scizophrenia: Was under psych care, continue Latuda. Psych following. Has episodes of agitation requiring sitter. On Geodon 20 mg IM Q4H ad Lorazepam. Increase frequency of Lorazepam to Q4H PRN Discharge Planning: Awaiting d/c to SNF when clinically better - Time Spent With Patient 25 - 35 minutes - Subjective Interval history: seen and examined at bedside. He is alert and oriented. Noticed to have episodes of agitation - Constitutional Vitals: Temp Pulse Resp BP Pulse Ox 98.6 F 98 17 120/74 97 12/19/16 10:40 12/19/16 18:42 12/19/16 18:42 12/19/16 18:42 12/19/16 18:42 General appearance: Present: cooperative, A&O X 1, underweight Internal Medicine: Result - Labs CBC & Chem 7: 12/20/16 03:30 12/20/16 03:30 Labs: Short CBC 12/19/16 Range/Units 04:01 WBC 5.5 (4.3-11.1) K/mcL Hgb 10.4 L (12.9-16.9) g/dL Hct 32.6 L (37.5-50.1) % Plt Count 172 (140-400) K/mcL Neutrophils # 3.5 (1.6-8.9) K/mcL BMP 12/19/16 04:01 Sodium 139 Potassium 3.8 Chloride 106 Carbon Dioxide 26 BUN 6 L Creatinine 0.56 L Glucose 83 Calcium 7.8 L Consult Discharge Plan - Plan Referrals: NO,PCP [Primary Care Provider] -
[2016-12-20 03:52] LABS: Basophils % 0.6 %; Eosinophils # 0.1 K/mcL (0.0-0.6); Eosinophils % 1.9 %; Hematocrit 36.5 % (37.5-50.1); Hemoglobin 11.4 g/dL (12.9-16.9); Immature Granulocytes % 0.4 % (0-4); Lymphocytes # 1.2 K/mcL (0.6-4.6); Lymphocytes % 22.6 %; Mean Corpuscular HGB Conc 31.2 g/dL (31.6-35.5); Mean Corpuscular Hemoglobin 27.1 pg (28.0-33.3); Mean Corpuscular Volume 86.7 fL (83.0-100.0); Mean Platelet Volume 9.6 fL (9.4-12.4); Monocytes # 0.5 K/mcL (0.0-1.3); Monocytes % 9.9 %; Neutrophils # 3.3 K/mcL (1.6-8.9); Platelet Count 183 K/mcL (140-400); Red Blood Count 4.21 M/mcL (4.19-5.50); Segmented Neutrophils % 64.6 %
[2016-12-20 04:19] LABS: BUN/Creatinine Ratio 10 (6-26); Blood Urea Nitrogen 6 mg/dL (8-26); Calcium 8.5 mg/dL (8.6-10.8); Carbon Dioxide 24 mEq/L (19-29); Chloride 106 mEq/L (98-109); Glucose 113 mg/dL (70-99); Osmolality,Calculated 284 (280-300); Potassium 3.7 mEq/L (3.5-4.5); Sodium 138 mEq/L (136-145); eGFR For African Americans > 60 (> 60); eGFR For Non-African Americans > 60 (> 60)
[2016-12-20] MEDS: Lurasidone 20 MG TABLET PO SCH ×2 (08:22→17:02)
[2016-12-20] MEDS: *HR* HYDROcodone/Acet 5/325 mg TABLET PO PRN (08:22)
[2016-12-20] MEDS: Nicotine 21 MG PATCH.TD24 TD SCH (08:23)
[2016-12-20] MEDS: Loratadine 10 MG TABLET PO SCH (08:23)
--- NOTE | 2016-12-20 18:41 | Internal Med Progress Note ---
Date of Encounter: 12/20/16 Time of Encounter: 18:33 - Assessment and plan (1) Hypokalemia Current Visit: Yes Status: Acute (2) Encephalopathy chronic Current Visit: No Status: Chronic (3) Chronic undifferentiated schizophrenia Current Visit: Yes Status: Acute Assessment and plan: Metabolic encephalopathy: Patient admitted with AMS, which has currently resolved, Infectious work up negative. He has been worked up for Neuroleptic malignant syndrome which has been negative. Psych has evaluated the pt and recommends that he doesn't require any inpatient psych admission at this time. Patient is very pleasant and happy today, no further episodes of agitation in the last 48 hours. He has a sitter for patient safety reasons. Hypokalemia: In setting of hypomagnesemia. Replete magnesium and Potassium, monitor labs. Scizophrenia: Was under psych care, continue Latuda. Psych following. Has episodes of agitation requiring sitter. On Geodon 20 mg IM Q4H ad Lorazepam. Not requiring PRN meds Discharge Planning: Awaiting d/c to SNF when clinically better - Time Spent With Patient 25 - 35 minutes - Subjective Interval history: seen and examined at bedside. He is alert and oriented. He is very pleasant. he remembers the conversation I had with him yesterday and asks me questions about that. He states that he would like to go home. - Constitutional Vitals: Temp Pulse Resp BP Pulse Ox 98.2 F 82 16 106/71 98 12/20/16 10:47 12/20/16 10:47 12/20/16 10:47 12/20/16 10:47 12/20/16 10:47 General appearance: Present: cooperative, A&O X 1, underweight - Head Head exam: Present: atraumatic, normocephalic - Eye Eye exam: Present: PERRL, conjuntiva pink, sclera anicteric Pupils: Present: PERRL - Neck Neck exam general surgery: Present: supple, trachea midline. Absent: lymphadenopathy - Respiratory Respiratory exam: Present: CTAB. Absent: accessory muscle use, rales, rhonchi, wheezes - Cardiovascular Cardiovascular exam: Present: RRR, +S1, +S2. Absent: diastolic murmur, gallop, rubs, systolic murmur - GI/Abdominal GI/Abdominal exam: Present: normal bowel sounds, soft, no peritoneal signs. Absent: distended, tenderness - Extremities Exam Extremities exam: Present: warm, radial pulses palpable and symetrical. Absent : calf tenderness, cyanotic, pedal edema - Neurological Exam Neurological exam: Present: CN II-XII intact, oriented X3, no focal deficits. Absent: pronater drift, facial droop, speech deficit - Skin Skin exam: Present: dry, intact Internal Medicine: Result - Labs CBC & Chem 7: 12/20/16 03:30 12/20/16 03:30 Labs: Short CBC 12/20/16 Range/Units 03:30 WBC 5.1 (4.3-11.1) K/mcL Hgb 11.4 L (12.9-16.9) g/dL Hct 36.5 L (37.5-50.1) % Plt Count 183 (140-400) K/mcL Neutrophils # 3.3 (1.6-8.9) K/mcL BMP 12/20/16 03:30 Sodium 138 Potassium 3.7 Chloride 106 Carbon Dioxide 24 BUN 6 L Creatinine 0.63 L Glucose 113 H Calcium 8.5 L Consult Discharge Plan - Plan Referrals: NO,PCP [Primary Care Provider] -
[2016-12-21] MEDS: Nicotine 21 MG PATCH.TD24 TD SCH (08:29)
[2016-12-21] MEDS: Loratadine 10 MG TABLET PO SCH (08:30)
[2016-12-21] MEDS: Lurasidone 20 MG TABLET PO SCH ×2 (08:30→17:33)
[2016-12-21] MEDS: Ziprasidone injection 20 MG/ML VIAL IM PRN (09:44)
[2016-12-21] MEDS: *HR* HYDROcodone/Acet 5/325 mg TABLET PO PRN ×2 (14:47→21:03)
[2016-12-21] MEDS ORDERED: Water for inj. (sterile) 10 ML IV ONE (16:30)
--- NOTE | 2016-12-21 17:20 | Internal Med Progress Note ---
Date of Encounter: 12/21/16 Time of Encounter: 17:19 - Assessment and plan (1) Hypokalemia Current Visit: Yes Status: Acute (2) Encephalopathy chronic Current Visit: No Status: Chronic (3) Chronic undifferentiated schizophrenia Current Visit: Yes Status: Acute Assessment and plan: Metabolic encephalopathy: Patient admitted with AMS, which has currently resolved, Infectious work up negative. He has been worked up for Neuroleptic malignant syndrome which has been negative. Psych has evaluated the pt and recommends that he doesn't require any inpatient psych admission at this time. Patient is very pleasant and happy today, no further episodes of agitation in the last 48 hours. He has a sitter for patient safety reasons. Hypokalemia: In setting of hypomagnesemia. Replete magnesium and Potassium, monitor labs. Scizophrenia: Was under psych care, continue Latuda. Psych following. Has episodes of agitation requiring sitter. On Geodon 20 mg IM Q4H ad Lorazepam. Not requiring PRN meds Discharge Planning: Awaiting d/c to SNF when clinically better - Time Spent With Patient 25 - 35 minutes - Subjective Interval history: seen and examined at bedside. He is alert and oriented. He is very pleasant. he remembers the conversation I had with him yesterday and asks me questions about that. He states that he would like to go home. - Constitutional Vitals: Temp Pulse Resp BP Pulse Ox 98.0 F 72 15 116/71 97 12/21/16 15:39 12/21/16 15:39 12/21/16 15:39 12/21/16 15:39 12/21/16 15:39 General appearance: Present: cooperative, A&O X 1, underweight - Head Head exam: Present: atraumatic, normocephalic - Eye Eye exam: Present: PERRL, conjuntiva pink, sclera anicteric Pupils: Present: PERRL - Neck Neck exam general surgery: Present: supple, trachea midline. Absent: lymphadenopathy - Respiratory Respiratory exam: Present: CTAB. Absent: accessory muscle use, rales, rhonchi, wheezes - Cardiovascular Cardiovascular exam: Present: RRR, +S1, +S2. Absent: diastolic murmur, gallop, rubs, systolic murmur - GI/Abdominal GI/Abdominal exam: Present: normal bowel sounds, soft, no peritoneal signs. Absent: distended, tenderness - Extremities Exam Extremities exam: Present: warm, radial pulses palpable and symetrical. Absent : calf tenderness, cyanotic, pedal edema - Neurological Exam Neurological exam: Present: CN II-XII intact, oriented X3, no focal deficits. Absent: pronater drift, facial droop, speech deficit - Skin Skin exam: Present: dry, intact Internal Medicine: Result - Labs CBC & Chem 7: 12/20/16 03:30 12/20/16 03:30 - VTE Documentation of Mechanical Device: Graduated compression elastic hosiery Consult Discharge Plan - Plan Referrals: NO,PCP [Primary Care Provider] -
[2016-12-21] MEDS: *HR* LORazepam 1 MG TABLET PO PRN (22:02)
[2016-12-22] MEDS: *HR* LORazepam 1 MG TABLET PO PRN ×2 (02:09→20:14)
[2016-12-22 04:52] LABS: Basophils % 0.4 %; Eosinophils # 0.2 K/mcL (0.0-0.6); Hematocrit 35.6 % (37.5-50.1); Hemoglobin 11.5 g/dL (12.9-16.9); Immature Granulocytes % 0.3 % (0-4); Lymphocytes # 1.5 K/mcL (0.6-4.6); Lymphocytes % 19.4 %; Mean Corpuscular HGB Conc 32.3 g/dL (31.6-35.5); Mean Corpuscular Volume 86.6 fL (83.0-100.0); Monocytes # 0.6 K/mcL (0.0-1.3); Monocytes % 7.4 %; Neutrophils # 5.4 K/mcL (1.6-8.9); Platelet Count 185 K/mcL (140-400); Red Blood Count 4.11 M/mcL (4.19-5.50); Red Cell Distribution Width 15.9 % (11.5-14.5); Segmented Neutrophils % 69.5 %
[2016-12-22 05:02] LABS: BUN/Creatinine Ratio 17 (6-26); Blood Urea Nitrogen 11 mg/dL (8-26); Calcium 8.7 mg/dL (8.6-10.8); Carbon Dioxide 22 mEq/L (19-29); Chloride 105 mEq/L (98-109); Glucose 85 mg/dL (70-99); Osmolality,Calculated 283 (280-300); Potassium 4.5 mEq/L (3.5-4.5); Sodium 137 mEq/L (136-145); eGFR For African Americans > 60 (> 60); eGFR For Non-African Americans > 60 (> 60)
[2016-12-22] MEDS: Loratadine 10 MG TABLET PO SCH (09:06)
[2016-12-22] MEDS: Nicotine 21 MG PATCH.TD24 TD SCH (09:06)
[2016-12-22] MEDS: Lurasidone 20 MG TABLET PO SCH ×2 (09:07→17:49)
--- NOTE | 2016-12-22 14:19 | Internal Med Progress Note ---
Date of Encounter: 12/22/16 Time of Encounter: 14:17 - Assessment and plan (1) Hypokalemia Current Visit: Yes Status: Acute (2) Encephalopathy chronic Current Visit: No Status: Chronic (3) Chronic undifferentiated schizophrenia Current Visit: Yes Status: Acute Assessment and plan: 36 y/o male admitted to the psych floor with h/o schizophrenia agitation, transferred to medical floor for metabolic encephalopathy. Metabolic encephalopathy: Patient admitted with AMS, which has currently resolved, Infectious work up negative. He has been worked up for Neuroleptic malignant syndrome which has been negative. Psych has evaluated the pt and recommends that he doesn't require any inpatient psych admission at this time. Patient is very pleasant and happy today, no further episodes of agitation. He has a sitter for patient safety reasons related to fall. Hypokalemia: In setting of hypomagnesemia. Replete magnesium and Potassium, monitor labs. Scizophrenia: Was under psych care, continue Latuda. Psych following. Has episodes of agitation requiring sitter. On Geodon 20 mg IM Q4H ad Lorazepam. Not requiring PRN meds Discharge Planning: Awaiting d/c to SNF - Time Spent With Patient 25 - 35 minutes - Subjective Interval history: seen and examined at bedside. He is alert and oriented. He is very pleasant. Denies any chest pain, abdominal pain. Reports good appetite. He states that he would like to go home. - Constitutional Vitals: Temp Pulse Resp BP Pulse Ox 98.2 F 93 14 107/70 97 12/22/16 11:19 12/22/16 11:19 12/22/16 11:19 12/22/16 11:19 12/22/16 11:19 General appearance: Present: cooperative, A&O X 1, underweight - Head Head exam: Present: atraumatic, normocephalic - Eye Eye exam: Present: PERRL, conjuntiva pink, sclera anicteric Pupils: Present: PERRL - Neck Neck exam general surgery: Present: supple, trachea midline. Absent: lymphadenopathy - Respiratory Respiratory exam: Present: CTAB. Absent: accessory muscle use, rales, rhonchi, wheezes - Cardiovascular Cardiovascular exam: Present: RRR, +S1, +S2. Absent: diastolic murmur, gallop, rubs, systolic murmur - GI/Abdominal GI/Abdominal exam: Present: normal bowel sounds, soft, no peritoneal signs. Absent: distended, tenderness - Extremities Exam Extremities exam: Present: warm, radial pulses palpable and symetrical. Absent : calf tenderness, cyanotic, pedal edema - Neurological Exam Neurological exam: Present: CN II-XII intact, oriented X3, no focal deficits. Absent: pronater drift, facial droop, speech deficit - Skin Skin exam: Present: dry, intact Internal Medicine: Result - Labs CBC & Chem 7: 12/22/16 04:01 12/22/16 04:01 Labs: Short CBC 12/22/16 Range/Units 04:01 WBC 7.7 D (4.3-11.1) K/mcL Hgb 11.5 L (12.9-16.9) g/dL Hct 35.6 L (37.5-50.1) % Plt Count 185 (140-400) K/mcL Neutrophils # 5.4 (1.6-8.9) K/mcL BMP 12/22/16 04:01 Sodium 137 Potassium 4.5 Chloride 105 Carbon Dioxide 22 BUN 11 Creatinine 0.64 L Glucose 85 Calcium 8.7 - VTE Documentation of Mechanical Device: Graduated compression elastic hosiery Consult Discharge Plan - Plan Referrals: NO,PCP [Primary Care Provider] -
[2016-12-22] MEDS ORDERED: Water for inj. (sterile) 10 ML IV ONE (15:48)
[2016-12-22] MEDS: Ziprasidone injection 20 MG/ML VIAL IM PRN (15:57)
[2016-12-23 05:04] LABS: Basophils % 0.4 %; Eosinophils # 0.2 K/mcL (0.0-0.6); Eosinophils % 3.3 %; Hematocrit 37.3 % (37.5-50.1); Hemoglobin 11.9 g/dL (12.9-16.9); Immature Granulocytes % 0.2 % (0-4); Lymphocytes # 1.3 K/mcL (0.6-4.6); Mean Corpuscular HGB Conc 31.9 g/dL (31.6-35.5); Mean Corpuscular Hemoglobin 27.7 pg (28.0-33.3); Mean Corpuscular Volume 86.7 fL (83.0-100.0); Mean Platelet Volume 9.8 fL (9.4-12.4); Monocytes # 0.4 K/mcL (0.0-1.3); Neutrophils # 3.2 K/mcL (1.6-8.9); Platelet Count 170 K/mcL (140-400); Red Cell Distribution Width 16.1 % (11.5-14.5); Segmented Neutrophils % 63.1 %
[2016-12-23 05:23] LABS: BUN/Creatinine Ratio 18 (6-26); Blood Urea Nitrogen 12 mg/dL (8-26); Calcium 8.9 mg/dL (8.6-10.8); Carbon Dioxide 27 mEq/L (19-29); Chloride 102 mEq/L (98-109); Glucose 106 mg/dL (70-99); Osmolality,Calculated 282 (280-300); Potassium 4.2 mEq/L (3.5-4.5); Sodium 136 mEq/L (136-145); eGFR For African Americans > 60 (> 60); eGFR For Non-African Americans > 60 (> 60)
[2016-12-23] MEDS: *HR* LORazepam 1 MG TABLET PO PRN (06:17)
[2016-12-23] MEDS: Nicotine 21 MG PATCH.TD24 TD SCH (09:42)
[2016-12-23] MEDS: Lurasidone 20 MG TABLET PO SCH ×2 (09:44→16:24)
[2016-12-23] MEDS: Loratadine 10 MG TABLET PO SCH (09:44)
[2016-12-23 12:14] VITALS: BP 117/76
--- NOTE | 2016-12-23 15:04 | Discharge Summary ---
Date of Encounter: 12/23/16 Time of Encounter: 15:02 - Discharge Diagnosis (1) Hypokalemia Priority: Secondary Status: Acute (2) Encephalopathy chronic Priority: Primary Status: Chronic (3) Chronic undifferentiated schizophrenia Priority: Primary Status: Acute - Discharge Medications Prescriptions: Calcium Carbonate [Tums] 1,000 mg PO QID #30 tab.chew Lurasidone [Latuda] 20 mg PO BIDWM #14 tablet Home Medications: Loratadine [Claritin] 10 mg PO DAILY #15 tablet 12/14/16 [Rx] Nicotine Patch [Nicoderm] 21 mg TD DAILY #15 patch.td24 12/14/16 [Rx] Potassium Citrate [Urocit-K] 10 meq PO HS #15 tablet.er 12/14/16 [Rx] Calcium Carbonate [Tums] 1,000 mg PO QID #30 tab.chew 12/23/16 [Rx] Lurasidone [Latuda] 20 mg PO BIDWM #14 tablet 12/23/16 [Rx] Allergies/Adverse Reactions: Allergies haloperidol [From Haldol] Allergy (Verified 12/14/16 00:06) See Comments Requested by psychiatrist to be listed as an allergy at this time due to disease process. milk Allergy (Verified 12/13/16 08:38) Diarrhea Pt's sister states that it is when patient drinks large amounts of milk. He eats yogurt at home. risperidone [From Risperdal] Allergy (Verified 12/14/16 00:06) See Comments Requested by psychiatrist to be listed as an allergy at this time due to disease process Date of admission: 12/16/16 12:40 Primary care physician: PCP NO Consults: 12/14/16 15:03 Consult to [employer] [CONS] Routine Reason for SW Consult: Pts last known residence [facility], also was told something about possible going to [place]??? 12/14/16 15:06 Consult to Psychiatry [CONS] Routine Consulting Provider: Psychiatry [facility] Reason for Consult: Schizophrenia Call Completed: No 12/14/16 15:29 Consult to Speech Therapy [CONS] Routine Comment: Evaluate, develop and implement POC Reason for Consult: Pt on honey thick liquids, not tolorating well Call Completed: Yes 12/16/16 18:59 Consult to Psychiatry [CONS] Routine Consulting Provider: Psychiatry [facility] Reason for Consult: Potassium is corrected. Time Notified: 19:00 Call Completed: Yes 12/19/16 15:18 OT [Consult to Occupational Therapy] [CONS] Routine Comment: Evaluate, develop and implement POC PT [Consult to Physical Therapy] [CONS] Routine Comment: Evaluate, develop and implement POC Discharging clinician: Angélica Pickard - Patient Status Disposition: Transfer SNF Condition: Good Overall status at discharge: patient is progressing back to baseline - Discharge Instructions Instructions: Mood Disorders (DC), Schizophrenia (DC), Sepsis (DC), Chronic Dysphagia (DC) Follow Up With: NO,PCP [Primary Care Provider] - - Diet and Activity Activity: resume usual activities as tolerated Interval History: 36 y/o male admitted to the psych floor with h/o schizophrenia agitation, transferred to medical floor for metabolic encephalopath. work up for infectious pathology has been negative. patient was treated with supportive care and improved clinically. he is currently back to his baseline. Patient very pleasant and calm during exam. he was seen by psychiatry and was started on Latuda. he is currently on 20 mg BID. Dose to be increased in one week. He is recommended to follow up with psychiatry as outpatient. Patient hypokalemic and hypomagnesemic brooke dmission which has curently resolved. he is on potassium supplementation. Monitor lytes in a week and adjust as needed. Hospital course: Mr. Dsah is a 36 year old male - Time Spent with Patient Total time spent providing and/or coordinating discharge services: Greater than 30 minutes - Constitutional Vitals: Temp Pulse Resp BP Pulse Ox 98.3 F 88 16 117/76 99 12/23/16 12:13 12/23/16 12:13 12/23/16 12:13 12/23/16 12:13 12/23/16 12:13 General appearance: Present: cooperative, A&O X 1, underweight - Head Head exam: Present: atraumatic, normocephalic - Eye Eye exam: Present: PERRL, conjuntiva pink, sclera anicteric Pupils: Present: PERRL - Neck Neck exam general surgery: Present: supple, trachea midline. Absent: lymphadenopathy - Respiratory Respiratory exam: Present: CTAB. Absent: accessory muscle use, rales, rhonchi, wheezes - Cardiovascular Cardiovascular exam: Present: RRR, +S1, +S2. Absent: diastolic murmur, gallop, rubs, systolic murmur - GI/Abdominal GI/Abdominal exam: Present: normal bowel sounds, soft, no peritoneal signs. Absent: distended, tenderness - Extremities Exam Extremities exam: Present: warm, radial pulses palpable and symetrical. Absent : calf tenderness, cyanotic, pedal edema - Neurological Exam Neurological exam: Present: CN II-XII intact, oriented X3, no focal deficits. Absent: pronater drift, facial droop, speech deficit - Skin Skin exam: Present: dry, intact - VTE Documentation of Mechanical Device: Graduated compression elastic hosiery
--- NOTE | 2016-12-23 15:15 | Physician Discharge Referral ---
ExtendedCare Referral Info Provider in Charge after Transfer: Other Institutional Level of Care: Skilled - Diagnosis (1) Hypokalemia Status: Acute (2) Encephalopathy chronic Status: Chronic (3) Chronic undifferentiated schizophrenia Status: Acute - Transfer Medications Prescriptions: RX: Calcium Carbonate [Tums] 1,000 mg PO QID #30 tab.chew RX: Lurasidone [Latuda] 20 mg PO BIDWM #14 tablet Home Medications: RX: Loratadine [Claritin] 10 mg PO DAILY #15 tablet 12/14/16 [Rx] RX: Nicotine Patch [Nicoderm] 21 mg TD DAILY #15 patch.td24 12/14/16 [Rx] RX: Potassium Citrate [Urocit-K] 10 meq PO HS #15 tablet.er 12/14/16 [Rx] RX: Calcium Carbonate [Tums] 1,000 mg PO QID #30 tab.chew 12/23/16 [Rx] RX: Lurasidone [Latuda] 20 mg PO BIDWM #14 tablet 12/23/16 [Rx] Allergies/Adverse Reactions: Allergies haloperidol [From Haldol] Allergy (Verified 12/14/16 00:06) See Comments Requested by psychiatrist to be listed as an allergy at this time due to disease process. milk Allergy (Verified 12/13/16 08:38) Diarrhea Pt's sister states that it is when patient drinks large amounts of milk. He eats yogurt at home. risperidone [From Risperdal] Allergy (Verified 12/14/16 00:06) See Comments Requested by psychiatrist to be listed as an allergy at this time due to disease process - Respiratory Orders Smoking Cessation: Smoking cessation has been advised. For more information, call the [place] Tobacco Quit Line at 5-841-EZMC-NOW. - Lab Orders Lab Orders: Other (include drug levels w/frequency) (BMP in one week - potassium level) - Ancillary Orders May use pressure relief devices daily prn - Advance Directives Code Status: Full Code - Mobility Orders Ambulate - Rehabiliation Orders Rehab Potential: Good - Treatments Skin tear care topically daily PRN per policy - Diet Orders Regular CERTIFICATION: I certify that the transfer of the above named patient to an Extended Care Facility is necessary for the continuing treatment of the diagnosis listed. The above information is true and accurate reflection of patient's current condition. Confidential - Redisclosure prohibited without a patient's written consent.
== END 2016-12-23 17:47 | DRG 640 ==
LOC: 3BNU
PROVIDERS: ADMIT Internal Medicine; ATTEND Internal Medicine Pulmonary Disease